=== PATIENT | male | born 1995 | race Caucasian/White ===

== ENCOUNTER 2017-03-16 18:13 | Emergency (ER) | payer BC, MEDICAID ==
[2017-03-16 18:31] VITALS: BP 148/96
--- NOTE | 2017-03-16 18:51 | EDM.PDOC ---
ED HPI GENERAL MEDICAL PROBLEM - General Chief Complaint: General Stated Complaint: NECK PAIN,HIGH WHITE BLOOD COUNT Time Seen by Provider: 03/16/17 18:51 Source of Information: Reports: Patient History Limitations: Reports: No Limitations - History of Present Illness INITIAL COMMENTS - FREE TEXT/NARRATIVE: 21-year-old male who 2 days ago had a strange sensation in his chest substernally, caused him a fairly sudden onset of dizziness and discomfort and diaphoresis. He then developed a headache with some mild to moderate confusion which is very unusual for him. He also had one emesis. His mother observed him for the next 2 days and he seemed to improve the following day but when his headache improved but he became more uncomfortable in his neck she took him to the clinic. Some studies were drawn and he was given a muscle relaxer, but after he left his white count returned 13,000 so he was called and told to go to the emergency room to check for "possible meningitis". Onset: Sudden (2 days ago) Location: Reports: Head, Neck, Chest Severity: Mild Associated Symptoms: Reports: Nausea/Vomiting (Resolved). Denies: Fever/Chills , Shortness of Breath Posterior Neck Pain Score (Numeric/FACES): 5 - Related Data Allergies Allergy/AdvReac Type Severity Reaction Status Date / Time amoxicillin [Amoxicillin] Allergy Intermediate Rash Verified 09/13/13 16:12 Home Meds: Home Meds NK [No Known Home Meds] 09/13/13 [History] Past Medical History HEENT History: Reports: Impaired Vision Musculoskeletal History: Reports: Other (See Below) Other Musculoskeletal History: broken femur Endocrine/Metabolic History: Reports: Hypothyroidism Social & Family History - Tobacco Use Smoking Status *Q: Current Every Day Smoker Years of Tobacco use: 6 Packs/Tins Daily: 0.5 Second Hand Smoke Exposure: Yes - Caffeine Use Caffeine Use: Reports: Coffee, Energy Drinks, Soda - Alcohol Use Days Per Week of Alcohol Use: 4 Number of Drinks Per Day: 7 Total Drinks Per Week: 28 - Recreational Drug Use Recreational Drug Use: No Recreational Drug Type: Reports: Other (see below) ED ROS GENERAL - Review of Systems Review Of Systems: See Below Constitutional: Reports: Malaise. Denies: Fever, Chills, Weakness HEENT: Denies: Vision Change Respiratory: Denies: Shortness of Breath, Cough Cardiovascular: Reports: Chest Pain (He had a strange sensation in his chest 2 days ago but that has resolved) GI/Abdominal: Reports: Vomiting (One episode of vomiting 2 days ago) : Reports: No Symptoms Skin: Reports: Diaphoresis (Initially was diaphoretic that has resolved) Neurological: Reports: Confusion (Intermittent, none at this time) Psychiatric: Reports: No Symptoms ED EXAM, GENERAL - Physical Exam Exam: See Below Exam Limited By: No Limitations General Appearance: Alert, No Apparent Distress Eye Exam: Bilateral Eye: EOMI, Normal Inspection, PERRL Head: Atraumatic Neck: Normal Inspection, Supple, Non-Tender Respiratory/Chest: No Respiratory Distress Cardiovascular: Regular Rate, Rhythm, Tachycardia Extremities: Normal Inspection Neurological: Alert, Oriented, No Motor/Sensory Deficits, Other (Romberg is negative, patient is able to pound his heels on the floor in a standing position without neck or head pain) Course - Vital Signs Last Recorded V/S: Last Vital Signs Temp 98.8 F 03/16/17 18:28 Pulse 120 H 03/16/17 18:28 Resp 18 03/16/17 18:28 BP 148/96 H 03/16/17 18:28 Pulse Ox 100 03/16/17 18:28 - Orders/Labs/Meds Orders: Active Orders 24 hr Category Date Time Status Head wo Cont [CT] Stat Exams 03/16/17 19:08 Taken Meds: Medications Discontinued Medications Generic Name Dose Route Start Last Admin Trade Name Jerodq PRN Reason Stop Dose Admin Ketorolac Tromethamine 60 mg 03/16/17 19:58 03/16/17 20:07 Toradol IM 03/16/17 19:59 60 mg ONETIME ONE Administration - Re-Assessments/Exams Free Text/Narrative Re-Assessment/Exam: 03/16/17 19:27 I don't see any sign or evidence of meningitis but we will CT his head because of the strange onset of confusion and headache. This may be a vascular or migrainous type of event which is being persistent. 03/16/17 19:58 CT was normal. Patient was given 60 mg of Toradol IM and asked to give this a few more days, he can return if worsening. Departure - Departure Time of Disposition: 20:32 Disposition: Home, Self-Care 01 Condition: Good Clinical Impression: Migraine Qualifiers: Migraine type: unspecified Status migrainosus presence: without status migrainosus Intractability: not intractable Qualified Code(s): G43.909 - Migraine, unspecified, not intractable, without status migrainosus - Discharge Information Instructions: Migraine Headache Referrals: PCP,None [Primary Care Provider] - Forms: ED Department Discharge Care Plan Goals: Rest for the next 1-2 days, get plenty of fluids and increase activity and diet as tolerated. Use ibuprofen or naproxen for headache instead of Tylenol, and return if not improving satisfactorily after 2-3 days or sooner if worsening or concerns. - My Orders Last 24 Hours: My Active Orders 03/16/17 19:08 Head wo Cont [CT] Stat - Assessment/Plan Last 24 Hours: My Active Orders 03/16/17 19:08 Head wo Cont [CT] Stat
[2017-03-16] MEDS ORDERED: Ketorolac 60 MG/2 ML SDV IM ONE (19:58)
== END 2017-03-16 20:25 | disposition home or self-care (01) ==
LOC: JP.ED 18:13
DX: G43.909 Migraine, unspecified, not intractable, without status migrainosus (principal); F17.210 Nicotine dependence, cigarettes, uncomplicated; E03.9 Hypothyroidism, unspecified; Z88.1 Allergy status to other antibiotic agents
CPT/HCPCS: 70450; 96372; 99284; J1885

== ENCOUNTER 2017-03-27 23:39 | Emergency (ER) | payer BC, MEDICAID ==
--- NOTE | 2017-03-28 00:29 | EDM.PDOC ---
ED HPI GENERAL MEDICAL PROBLEM - General Chief Complaint: Drug or Alcohol Abuse Stated Complaint: EVAL Time Seen by Provider: 03/27/17 23:40 Source of Information: Reports: Patient, Family, Old Records, RN Notes Reviewed History Limitations: Reports: Physical Impairment - History of Present Illness INITIAL COMMENTS - FREE TEXT/NARRATIVE: 21-year-old gentleman presents emergency department today with an unresponsive event, he is noncommunicative at this time is not moving his right arm or his right leg, would into the room she did shake my hand and acknowledge me with the left arm. His parents state he has been consuming alcohol tonight they found him in his room lying on the floor they brought him in be a private vehicle he has had weakness on his right side. He was in the emergency department approximately one week ago for migraine headache. - Related Data Allergies Allergy/AdvReac Type Severity Reaction Status Date / Time amoxicillin [Amoxicillin] Allergy Intermediate Rash Verified 03/28/17 00:04 Home Meds: Home Meds NK [No Known Home Meds] 09/13/13 [History] Past Medical History HEENT History: Reports: Impaired Vision Musculoskeletal History: Reports: Fracture, Other (See Below) Other Musculoskeletal History: broken femur Neurological History: Reports: Migraines Endocrine/Metabolic History: Reports: Hypothyroidism Social & Family History - Tobacco Use Smoking Status *Q: Current Every Day Smoker Years of Tobacco use: 7 Packs/Tins Daily: 1 Second Hand Smoke Exposure: Yes - Caffeine Use Caffeine Use: Reports: Energy Drinks, Soda - Alcohol Use Days Per Week of Alcohol Use: 4 Number of Drinks Per Day: 7 Total Drinks Per Week: 28 - Recreational Drug Use Recreational Drug Use: No Recreational Drug Type: Reports: Other (see below) ED ROS GENERAL - Review of Systems Review Of Systems: Unable To Obtain - Physical Exam Exam: See Below Text/Narrative:: General: Male noncommunicative follows some commands initially acknowledged me and shook my hand with his left hand does not move right arm or right leg eyes do open spontaneously open on command but did not open mouth on command, alert HEENT: head is atraumatic normocephalic, eyes pupils equal round reactive to light, sclera clear no conjunctivitis appreciated. Extraocular eye movements appear to be intact Ears blocked by cerumen bilaterally canals are clear. Nose no septal deviation, nares are clear, no blood present. Mouth mucosa is moist and pink no erythema or exudate noted in soft palate, tongue is midline uvula is midline, dentition is intact. Neck: Supple no thyromegaly no tracheal deviation. Nodes: Cervical nodes subclavicular nodes nontender no palpable lymphadenopathy noted. Lungs: clear to auscultation bilaterally with symmetrical respirations, no adventitious noise appreciated. CV: Regular rate and rhythm S1 and S2 appreciated no murmurs rubs or gallops noted. Abdomen: Soft, nontender, no palpable masses or organomegaly appreciated, no distention no guarding bowel sounds are present, . Neuro: Cranial nerves II through XII grossly intact, power is 5 out 5 in upper and lower extremities, patellar reflex, biceps reflex +2 no dysdiadochokinesis he does have a withdrawal reflex on the right lower extremity , however when I drop his right arm over his face and he let the arm fallen his face, the right arm is rigid Skin: Warm and dry, intact Extremities: No lower extremity edema appreciated, pedal pulse is +2. Course - Vital Signs Last Recorded V/S: Last Vital Signs Temp 97.0 F 03/28/17 00:04 Pulse 74 03/28/17 00:04 Resp 18 03/28/17 00:04 BP 111/76 03/28/17 00:04 Pulse Ox 95 03/28/17 00:04 - Orders/Labs/Meds Orders: Active Orders 24 hr Category Date Time Status EKG Documentation Completion [RC] ASDIRECTED Care 03/28/17 00:21 Active Head wo Cont [CT] Urgent Exams 03/28/17 00:19 Taken DRUG SCREEN, URINE [URCHEM] Stat Lab 03/28/17 00:22 Uncollected TROPONIN I [CHEM] Stat Lab 03/28/17 01:43 Ordered UA W/MICROSCOPIC [URIN] Urgent Lab 03/28/17 00:19 Uncollected Fosphenytoin [Cerebyx] 1,000 mg.pe Med 03/28/17 01:45 Ordered Sodium Chloride 0.9% [Normal Saline] 50 ml IV NOW EKG 12 Lead [EK] Urgent Ther 03/28/17 00:19 Ordered Medication Orders Fosphenytoin Sodium 1,000 mg. (pe/ Sodium Chloride) 70 mls @ 150 mls/hr IV NOW ONE Stop: 03/28/17 02:12 Labs: Laboratory Tests 03/28/17 03/28/17 03/28/17 Range/Units 00:42 00:42 00:42 WBC 14.5 H (4.5-11.0) K/uL RBC 4.97 (4.30-5.90) M/uL Hgb 16.0 H (12.0-15.0) g/dL Hct 45.9 (40.0-54.0) % MCV 92 (80-98) fL MCH 32 H (27-31) pg MCHC 35 (32-36) % Plt Count 362 (150-400) K/uL Neut % (Auto) 84 H (36-66) % Lymph % (Auto) 5 L (24-44) % Pike % (Auto) 10 H (2-6) % Eos % (Auto) 1 L (2-4) % Baso % (Auto) 1 (0-1) % PT (9.5-12.0) sec INR (0.80-1.20) APTT (27.0-36.0) sec D-Dimer, Quantitative (0.0-400.0) ng/mL Sodium 138 L (140-148) mmol/L Potassium 3.6 (3.6-5.2) mmol/L Chloride 100 (100-108) mmol/L Carbon Dioxide 26 (21-32) mmol/L Anion Gap 15.6 H (5.0-14.0) mmol/L BUN 8 (7-18) mg/dL Creatinine 1.3 (0.8-1.3) mg/dL Est Cr Clr Drug Dosing TNP Estimated GFR (MDRD) > 60 (>60) Glucose 100 (74-106) mg/dL Lactic Acid (0.4-2.0) mmol/L Calcium 9.0 (8.5-10.1) mg/dL Phosphorus 3.1 (2.5-4.9) mg/dL Magnesium 1.8 (1.8-2.4) mg/dL Total Bilirubin 0.5 (0.2-1.0) mg/dL AST 18 (15-37) U/L ALT 19 (12-78) U/L Alkaline Phosphatase 124 H (46-116) U/L Ammonia 18 (11-32) mmol/L Total Protein 7.8 (6.4-8.2) g/dL Albumin 3.7 (3.4-5.0) g/dL Globulin 4.1 H (2.3-3.5) g/dL Albumin/Globulin Ratio 0.9 L (1.2-2.2) TSH, Ultra Sensitive (0.358-3.740) uIU/mL Salicylates (2.0-20.0) mg/dL Acetaminophen 0.0 L (10.0-30.0) ug/mL Ethyl Alcohol mg/dL 03/28/17 03/28/17 03/28/17 Range/Units 00:42 00:42 00:42 WBC (4.5-11.0) K/uL RBC (4.30-5.90) M/uL Hgb (12.0-15.0) g/dL Hct (40.0-54.0) % MCV (80-98) fL MCH (27-31) pg MCHC (32-36) % Plt Count (150-400) K/uL Neut % (Auto) (36-66) % Lymph % (Auto) (24-44) % Pike % (Auto) (2-6) % Eos % (Auto) (2-4) % Baso % (Auto) (0-1) % PT (9.5-12.0) sec INR (0.80-1.20) APTT (27.0-36.0) sec D-Dimer, Quantitative (0.0-400.0) ng/mL Sodium (140-148) mmol/L Potassium (3.6-5.2) mmol/L Chloride (100-108) mmol/L Carbon Dioxide (21-32) mmol/L Anion Gap (5.0-14.0) mmol/L BUN (7-18) mg/dL Creatinine (0.8-1.3) mg/dL Est Cr Clr Drug Dosing Estimated GFR (MDRD) (>60) Glucose (74-106) mg/dL Lactic Acid 3.6 H (0.4-2.0) mmol/L Calcium (8.5-10.1) mg/dL Phosphorus (2.5-4.9) mg/dL Magnesium (1.8-2.4) mg/dL Total Bilirubin (0.2-1.0) mg/dL AST (15-37) U/L ALT (12-78) U/L Alkaline Phosphatase (46-116) U/L Ammonia (11-32) mmol/L Total Protein (6.4-8.2) g/dL Albumin (3.4-5.0) g/dL Globulin (2.3-3.5) g/dL Albumin/Globulin Ratio (1.2-2.2) TSH, Ultra Sensitive (0.358-3.740) uIU/mL Salicylates 2.8 (2.0-20.0) mg/dL Acetaminophen (10.0-30.0) ug/mL Ethyl Alcohol 18 mg/dL 03/28/17 03/28/17 03/28/17 Range/Units 00:42 01:25 01:27 WBC (4.5-11.0) K/uL RBC (4.30-5.90) M/uL Hgb (12.0-15.0) g/dL Hct (40.0-54.0) % MCV (80-98) fL MCH (27-31) pg MCHC (32-36) % Plt Count (150-400) K/uL Neut % (Auto) (36-66) % Lymph % (Auto) (24-44) % Pike % (Auto) (2-6) % Eos % (Auto) (2-4) % Baso % (Auto) (0-1) % PT (9.5-12.0) sec INR (0.80-1.20) APTT 27.8 (27.0-36.0) sec D-Dimer, Quantitative 708 H (0.0-400.0) ng/mL Sodium (140-148) mmol/L Potassium (3.6-5.2) mmol/L Chloride (100-108) mmol/L Carbon Dioxide (21-32) mmol/L Anion Gap (5.0-14.0) mmol/L BUN (7-18) mg/dL Creatinine (0.8-1.3) mg/dL Est Cr Clr Drug Dosing Estimated GFR (MDRD) (>60) Glucose (74-106) mg/dL Lactic Acid (0.4-2.0) mmol/L Calcium (8.5-10.1) mg/dL Phosphorus (2.5-4.9) mg/dL Magnesium (1.8-2.4) mg/dL Total Bilirubin (0.2-1.0) mg/dL AST (15-37) U/L ALT (12-78) U/L Alkaline Phosphatase (46-116) U/L Ammonia (11-32) mmol/L Total Protein (6.4-8.2) g/dL Albumin (3.4-5.0) g/dL Globulin (2.3-3.5) g/dL Albumin/Globulin Ratio (1.2-2.2) TSH, Ultra Sensitive 1.688 (0.358-3.740) uIU/mL Salicylates (2.0-20.0) mg/dL Acetaminophen (10.0-30.0) ug/mL Ethyl Alcohol mg/dL 03/28/17 Range/Units 01:27 WBC (4.5-11.0) K/uL RBC (4.30-5.90) M/uL Hgb (12.0-15.0) g/dL Hct (40.0-54.0) % MCV (80-98) fL MCH (27-31) pg MCHC (32-36) % Plt Count (150-400) K/uL Neut % (Auto) (36-66) % Lymph % (Auto) (24-44) % Pike % (Auto) (2-6) % Eos % (Auto) (2-4) % Baso % (Auto) (0-1) % PT 10.3 (9.5-12.0) sec INR 0.96 (0.80-1.20) APTT (27.0-36.0) sec D-Dimer, Quantitative (0.0-400.0) ng/mL Sodium (140-148) mmol/L Potassium (3.6-5.2) mmol/L Chloride (100-108) mmol/L Carbon Dioxide (21-32) mmol/L Anion Gap (5.0-14.0) mmol/L BUN (7-18) mg/dL Creatinine (0.8-1.3) mg/dL Est Cr Clr Drug Dosing Estimated GFR (MDRD) (>60) Glucose (74-106) mg/dL Lactic Acid (0.4-2.0) mmol/L Calcium (8.5-10.1) mg/dL Phosphorus (2.5-4.9) mg/dL Magnesium (1.8-2.4) mg/dL Total Bilirubin (0.2-1.0) mg/dL AST (15-37) U/L ALT (12-78) U/L Alkaline Phosphatase (46-116) U/L Ammonia (11-32) mmol/L Total Protein (6.4-8.2) g/dL Albumin (3.4-5.0) g/dL Globulin (2.3-3.5) g/dL Albumin/Globulin Ratio (1.2-2.2) TSH, Ultra Sensitive (0.358-3.740) uIU/mL Salicylates (2.0-20.0) mg/dL Acetaminophen (10.0-30.0) ug/mL Ethyl Alcohol mg/dL Meds: Medications Generic Name Dose Route Start Last Admin Trade Name Freq PRN Reason Stop Dose Admin Fosphenytoin Sodium 1,000 mg. 70 mls @ 150 mls/hr 03/28/17 01:45 pe/ Sodium Chloride IV 03/28/17 02:12 NOW ONE Departure - Departure Time of Disposition: 02:02 Disposition: DC/Tfer to Acute Hospital 02 Condition: Poor Clinical Impression: Cerebrovascular accident Qualifiers: CVA mechanism: thrombosis Precerebral and cerebral artery: middle cerebral artery Laterality of affected vessel: left Qualified Code(s): I63.312 - Cerebral infarction due to thrombosis of left middle cerebral artery - Discharge Information Forms: ED Department Discharge - My Orders Last 24 Hours: My Active Orders 03/28/17 00:19 Head wo Cont [CT] Urgent UA W/MICROSCOPIC [URIN] Urgent EKG 12 Lead [EK] Urgent 03/28/17 00:21 EKG Documentation Completion [RC] ASDIRECTED 03/28/17 00:22 DRUG SCREEN, URINE [URCHEM] Stat 03/28/17 01:43 TROPONIN I [CHEM] Stat 03/28/17 01:45 Fosphenytoin [Cerebyx] 1,000 mg.pe Sodium Chloride 0.9% [Normal Saline] 50 ml IV NOW - Assessment/Plan Last 24 Hours: My Active Orders 03/28/17 00:19 Head wo Cont [CT] Urgent UA W/MICROSCOPIC [URIN] Urgent EKG 12 Lead [EK] Urgent 03/28/17 00:21 EKG Documentation Completion [RC] ASDIRECTED 03/28/17 00:22 DRUG SCREEN, URINE [URCHEM] Stat 03/28/17 01:43 TROPONIN I [CHEM] Stat 03/28/17 01:45 Fosphenytoin [Cerebyx] 1,000 mg.pe Sodium Chloride 0.9% [Normal Saline] 50 ml IV NOW Plan: Assessment Acuity = acute Site and laterality = probable CVA left MCA Etiology = unclear etiology Manifestations = right sided weakness Location of injury = Home Lab values = WBC elevated at 14.5 consistent leukocytosis d-dimer mildly elevated at 708 sodium low at 138 consistent hyponatremia lactic acid elevated at 3.6 consistent lactic acidosis TSH normal at 1.68 alcohol elevated at 18, EKG demonstrates multiple ST elevations consistent with acute pericarditis CT scan shows Plan Called discussed case with neurologist on-call and Dr. Christian from the emergency department [facility], both felt he was too far out for TPA as last known well time was 4:30 yesterday afternoon, he was loaded with thousand milligrams fosphenytoin IV he will be transported via [email or web address] to [place] for further evaluation to the emergency department This note was dictated using [employer] voice recognition software please call with any questions.
[2017-03-28] MEDS ORDERED: Fosphenytoin 1,000 MG.PE in Sodium Chloride 0.9% 50 ML IV ONE (01:45)
[2017-03-28 02:17] VITALS: BP 124/87
== END 2017-03-28 02:52 ==
LOC: JP.ED 23:39
DX: I63.312 Cerebral infarction due to thrombosis of left middle cerebral artery (principal); G43.909 Migraine, unspecified, not intractable, without status migrainosus; E03.9 Hypothyroidism, unspecified; F17.210 Nicotine dependence, cigarettes, uncomplicated; H54.7 Unspecified visual loss; Z88.1 Allergy status to other antibiotic agents
CPT/HCPCS: 36415; 70450; 80053; 80305; 81001; 82140; 83605; 83735; 84100; 84443; 84484; 85025; 85379; 85610; 85730; 93005; 96365; 99285; G0480; J7050; Q2009

== ENCOUNTER 2017-05-01 19:18 | Emergency (ER) | payer BC, MEDICAID ==
[2017-05-01 19:39] VITALS: BP 124/71
--- NOTE | 2017-05-01 20:13 | EDM.PDOC ---
ED HPI GENERAL MEDICAL PROBLEM - General Chief Complaint: Lower Extremity Injury/Pain Stated Complaint: LT LEG PAIN/HAS HAD SURG & STROKE Time Seen by Provider: 05/01/17 20:00 Source of Information: Reports: Patient History Limitations: Reports: No Limitations - History of Present Illness INITIAL COMMENTS - FREE TEXT/NARRATIVE: Thai is a 21-year-old male with an extensive medical history including a recent MCA infarct, aortic repair and embolectomy with subsequent cardiac tamponade [facility]. patient has been doing rehabilitation in town here which has been going well, he informed his mom this evening that he had left thigh pain which patient reports has been ongoing for the last 5 days, patient reports that leg is painful when he lays on that side, he denies any injury, fever, chills. Patient has been riding a stationary bike for his rehabilitation. Mom is uncertain if his legs were ultrasounded for blood clots during his hospitalization. Patient denies any chest pain, shortness of breath, headache, dizziness or any other acute symptoms this evening. 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 AORTIC REPLACEMENT MODIFIED AORTIC ARCH AND AORTIC VALVE RESUSPENSION 03/28/17 Respiratory History: Reports: None Gastrointestinal History: Reports: None Genitourinary History: Reports: None Musculoskeletal History: Reports: Fracture, Other (See Below) Other Musculoskeletal History: broken femur. PAIN L UPPER LEG OUTER Neurological History: Reports: CVA, Migraines Psychiatric History: Reports: None Endocrine/Metabolic History: Reports: Hypothyroidism Hematologic History: Reports: None Immunologic History: Reports: None Oncologic (Cancer) History: Reports: None Dermatologic History: Reports: None - Past Surgical History Head Surgeries/Procedures: Reports: None Cardiovascular Surgical History: Reports: AAA Repair Other Neurological Surgeries/Procedures: l CVA WITH RECANALIZTION AND EMBOLECTOMY Social & Family History - Tobacco Use Smoking Status *Q: Current Every Day Smoker Years of Tobacco use: 5 Packs/Tins Daily: 0.5 Used Tobacco, but Quit: No Second Hand Smoke Exposure: Yes - Caffeine Use Caffeine Use: Reports: Soda - Alcohol Use Days Per Week of Alcohol Use: 4 Number of Drinks Per Day: 7 Total Drinks Per Week: 28 - Recreational Drug Use Recreational Drug Use: No Recreational Drug Type: Reports: Other (see below) Review of Systems - Review of Systems Review Of Systems: ROS reveals no pertinent complaints other than HPI. ED EXAM, GENERAL - Physical Exam Exam: See Below Exam Limited By: No Limitations General Appearance: Alert, WD/WN, No Apparent Distress Throat/Mouth: Normal Inspection, Normal Oropharynx Head: Atraumatic Neck: Normal Inspection, Supple, Non-Tender Respiratory/Chest: No Respiratory Distress, Lungs Clear, Normal Breath Sounds Cardiovascular: Normal Peripheral Pulses, Regular Rate, Rhythm, No Murmur, Tachycardia Peripheral Pulses: 2+: Dorsalis Pedis (L), Dorsalis Pedis (R) GI/Abdominal: Normal Bowel Sounds, Soft, Non-Tender Back Exam: Normal Inspection Extremities: Normal Inspection, Normal Range of Motion, Non-Tender, Normal Capillary Refill Neurological: Alert, Oriented Psychiatric: Normal Affect, Normal Mood Skin Exam: Warm, Dry, Other (Healing midline chest incision, chest tube incision , left groin incision, and left neck incision) Course - Vital Signs Last Recorded V/S: Last Vital Signs Temp 36.9 C 05/01/17 19:37 Pulse 115 H 05/01/17 19:37 Resp 16 05/01/17 19:37 BP 124/71 05/01/17 19:37 Pulse Ox 97 05/01/17 19:37 Thai is a 21-year-old male with significant medical history including a recent MCA infarction, embolectomy, open heart surgery with cardiac tamponade, who is currently undergoing cardiac rehabilitation and doing quite well who presents to the emergency room today with complaints of left thigh pain. On exam, patient 's pain is consistent with a musculoskeletal component, however, given patient' s significant medical history, I did obtain an ultrasound of his lower extremity to rule out a DVT. Fortunately ultrasound is negative and blood work today including a CBC and CMP is unremarkable. I discussed findings of ultrasound and test results with patient and his mom, I feel he is stable to be discharged home, I encouraged Tylenol, 650 mg every 4 hours for pain as needed as well as trying to alternate ice and heat to area for pain relief. Patient was encouraged to follow up with primary care in the next week if his symptoms have not improved, reasons to return to the emergency department were discussed in detail. Patient is mom are agreeable to plan of care patient was discharged in stable condition. - Orders/Labs/Meds Orders: Active Orders 24 hr Category Date Time Status VL Duplex Lwr Ext Veins Ltd Lt [US] Stat Exams 05/01/17 20:09 Taken Labs: Laboratory Tests 05/01/17 05/01/17 Range/Units 20:19 20:19 WBC 10.9 (4.5-11.0) K/uL RBC 4.61 (4.30-5.90) M/uL Hgb 14.1 (12.0-15.0) g/dL Hct 41.6 (40.0-54.0) % MCV 90 (80-98) fL MCH 31 (27-31) pg MCHC 34 (32-36) % Plt Count 271 (150-400) K/uL Neut % (Auto) 59 (36-66) % Lymph % (Auto) 20 L (24-44) % Miner % (Auto) 11 H (2-6) % Eos % (Auto) 8 H (2-4) % Baso % (Auto) 3 H (0-1) % Sodium 143 (140-148) mmol/L Potassium 4.1 (3.6-5.2) mmol/L Chloride 107 (100-108) mmol/L Carbon Dioxide 29 (21-32) mmol/L Anion Gap 7.2 (5.0-14.0) mmol/L BUN 9 (7-18) mg/dL Creatinine 1.2 (0.8-1.3) mg/dL Est Cr Clr Drug Dosing 83.28 mL/min Estimated GFR (MDRD) > 60 (>60) Glucose 94 (74-106) mg/dL Calcium 8.6 (8.5-10.1) mg/dL Total Bilirubin 0.4 (0.2-1.0) mg/dL AST 22 (15-37) U/L ALT 25 (12-78) U/L Alkaline Phosphatase 112 (46-116) U/L Total Protein 7.5 (6.4-8.2) g/dL Albumin 3.7 (3.4-5.0) g/dL Globulin 3.8 H (2.3-3.5) g/dL Albumin/Globulin Ratio 1.0 L (1.2-2.2) Departure - Departure Time of Disposition: 21:30 Disposition: Home, Self-Care 01 Condition: Good Clinical Impression: Thigh pain, musculoskeletal Qualifiers: Laterality: left Qualified Code(s): M79.652 - Pain in left thigh - Discharge Information Referrals: Lee Molina PA-C [Primary Care Provider] - Forms: ED Department Discharge Additional Instructions: Thai, You can take Tylenol 650 mg every 4 hours for pain. You can also try to alternate ice/heat to area for pain relief. If pain continues, follow up with your primary doctor in one week. If any worsening symptoms or complications arise, please return to the ED. You are doing great, keep up the awesome work with your rehab!! - My Orders Last 24 Hours: My Active Orders 05/01/17 20:09 VL Duplex Lwr Ext Veins Ltd Lt [US] Stat - Assessment/Plan Last 24 Hours: My Active Orders 05/01/17 20:09 VL Duplex Lwr Ext Veins Ltd Lt [US] Stat
--- NOTE | 2017-05-04 08:18 | US ---
VL Duplex Lwr Ext Veins Ltd Lt INDICATION: pain in left thigh, r/o dvt TECHNIQUE: The deep venous system of the left leg imaged, including the common femoral, deep femoral , superficial femoral, vertebral, and where visualized, calf veins. Imaging included duplex, compr ession, and augmentation. COMPARISON: None FINDINGS: There is no evidence of deep venous thrombosis. Other incidental findings: None. IMPRESSION: No evidence of deep venous thrombosis.
== END 2017-05-01 21:07 | disposition home or self-care (01) ==
LOC: JP.ED 19:18
DX: M79.652 Pain in left thigh (principal); E03.9 Hypothyroidism, unspecified; F17.210 Nicotine dependence, cigarettes, uncomplicated; Z88.1 Allergy status to other antibiotic agents; Z86.718 Personal history of other venous thrombosis and embolism; Z98.890 Other specified postprocedural states; Z79.82 Long term (current) use of aspirin; Z86.73 Personal history of transient ischemic attack (TIA), and cerebral infarction without residual deficits
CPT/HCPCS: 36415; 80053; 85025; 93971-26-LT; 93971-LT; 99284-25

== ENCOUNTER 2017-11-24 19:13 | Emergency (ER) | payer BC, MEDICAID ==
[2017-11-24] MEDS ORDERED: Acetaminophen 500 MG Tab PO ONE (20:00)
[2017-11-24 20:13] VITALS: BP 144/66
--- NOTE | 2017-11-24 20:55 | EDM.PDOC ---
ED HPI GENERAL MEDICAL PROBLEM - General Chief Complaint: Respiratory Problem Stated Complaint: DIFFICULTY BREATHING Time Seen by Provider: 11/24/17 19:36 Source of Information: Reports: Patient, Old Records, RN Notes Reviewed History Limitations: Reports: No Limitations - History of Present Illness INITIAL COMMENTS - FREE TEXT/NARRATIVE: Company by his father Chief complaint Difficulty breathing History of present illness 22-year-old male with onset of sore throat and a feeling of difficulty breathing 2 days ago. Chest aches, cough some mucus which is white in color. Fever yesterday but not today. Some achiness including his back his chest extremities. Also headache and nasal congestion. Nausea, an episode of vomiting yesterday No diarrhea Lives with his mom and father, mom is been sick for 2 days with cough fever generalized achiness and has been largely bed confined today. No history of lung disease or asthma Did have some acetaminophen much earlier. 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 shortly after that No one in the family had influenza vaccine this year THROAT;CHEST Pain Score (Numeric/FACES): 8 - Related Data Allergies Allergy/AdvReac Type Severity Reaction Status Date / Time amoxicillin [Amoxicillin] Allergy Intermediate Rash Verified 11/24/17 19:19 Home Meds: Home Meds Acetaminophen [Tylenol] 500 mg PO Q6H PRN 05/01/17 [History] Aspirin 81 mg PO DAILY 05/01/17 [History] Metoprolol Tartrate [Metoprolol Tartrate] 25 mg PO BID 11/24/17 [History] Past Medical History HEENT History: Reports: Impaired Vision Cardiovascular History: Reports: Blood Clots/VTE/DVT, Other (See Below) Other Cardiovascular History: 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 AORTIC REPLACEMENT MODIFIED AORTIC ARCH AND AORTIC VALVE RESUSPENSION 03/28/17 Respiratory History: Reports: None Gastrointestinal History: Reports: None Genitourinary History: Reports: None Musculoskeletal History: Reports: Fracture, Other (See Below) Other Musculoskeletal History: broken femur. PAIN L UPPER LEG OUTER Neurological History: Reports: CVA, Migraines Psychiatric History: Reports: None Endocrine/Metabolic History: Reports: Hypothyroidism Hematologic History: Reports: None Immunologic History: Reports: None Oncologic (Cancer) History: Reports: None Dermatologic History: Reports: None - Past Surgical History Cardiovascular Surgical History: Reports: AAA Repair Other Neurological Surgeries/Procedures: l CVA WITH RECANALIZTION AND EMBOLECTOMY Social & Family History - Tobacco Use Smoking Status *Q: Current Every Day Smoker Years of Tobacco use: 5 Packs/Tins Daily: 0.5 Used Tobacco, but Quit: No Second Hand Smoke Exposure: Yes - Caffeine Use Caffeine Use: Reports: Soda - Alcohol Use Days Per Week of Alcohol Use: 7 Number of Drinks Per Day: 4 Total Drinks Per Week: 28 - Recreational Drug Use Recreational Drug Use: No Recreational Drug Type: Reports: Other (see below) ED ROS GENERAL - Review of Systems Review Of Systems: See Below Constitutional: Reports: Fever, Malaise, Fatigue. Denies: Diaphoresis HEENT: Reports: Rhinitis, Throat Pain. Denies: Ear Pain, Vision Change Respiratory: Reports: Shortness of Breath, Cough Cardiovascular: Reports: Chest Pain. Denies: Edema, Lightheadedness, Palpitations GI/Abdominal: Reports: Decreased Appetite, Nausea, Vomiting. Denies: Abdominal Pain, Diarrhea : Reports: No Symptoms Musculoskeletal: Reports: Muscle Pain. Denies: Joint Swelling Skin: Reports: No Symptoms Neurological: Reports: Headache, Pre-Existing Deficit (Aphasia), Weakness. Denies: Confusion, Gait Disturbance Psychiatric: Reports: No Symptoms Hematologic/Lymphatic: Reports: No Symptoms Immunologic: Reports: No Symptoms ED EXAM, GENERAL - Physical Exam Exam: See Below Exam Limited By: No Limitations General Appearance: Alert, Mild Distress, Other (Fever with tachycardia, states his heart rate is normally fasting 120, mild elevation systolic blood pressure, no difficulty speaking or breathing on my evaluation) Ears: Normal External Exam, Normal Canal, Hearing Grossly Normal, Normal TMs Nose: Nasal Swelling, Clear Rhinorrhea Throat/Mouth: Normal Voice, Other (Mild oral pharyngeal redness, no exudate) Head: Atraumatic Neck: Normal Inspection, Supple. No: Lymphadenopathy (R) Respiratory/Chest: No Respiratory Distress, Lungs Clear, Normal Breath Sounds, No Accessory Muscle Use Cardiovascular: Regular Rate, Rhythm, Tachycardia GI/Abdominal: Normal Bowel Sounds, Soft, Non-Tender Back Exam: Normal Inspection Extremities: Normal Inspection Neurological: Oriented, Other (Aphasia from previous) Skin Exam: Dry, Normal Color, No Rash Course - Vital Signs Last Recorded V/S: Last Vital Signs Temp 38.7 C H 11/24/17 20:31 Pulse 125 H 11/24/17 19:17 Resp 15 11/24/17 20:11 BP 144/66 H 11/24/17 20:11 Pulse Ox 100 11/24/17 20:11 - Orders/Labs/Meds Orders: Active Orders 24 hr Category Date Time Status EKG Documentation Completion [RC] ASDIRECTED Care 11/24/17 21:14 Active Chest 2V [CR] Stat Exams 11/24/17 19:49 Taken CULTURE STREP A CONFIRMATION [RM] Stat Lab 11/24/17 19:51 Results STREP SCRN A RAPID W CULT CONF [RM] Stat Lab 11/24/17 19:51 Results EKG 12 Lead [EK] Routine Ther 11/24/17 21:14 Ordered Meds: Medications Discontinued Medications Generic Name Dose Route Start Last Admin Trade Name Dale PRN Reason Stop Dose Admin Acetaminophen 1,000 mg 11/24/17 20:00 11/24/17 20:06 Tylenol Extra Strength PO 11/24/17 20:01 1,000 mg ONETIME ONE Administration - Re-Assessments/Exams Free Text/Narrative Re-Assessment/Exam: 11/24/17 20:52 22-year-old male with about 3 days of respiratory symptoms including fever cough headache muscle aches. Also sore throat Mom recently ill with very similar illness Febrile with nasal congestion on admission Strep screen negative Acetaminophen 1000 mg by mouth for headache and fever Chest x-ray negative by my interpretation Influenza-like illness symptoms Symptomatically treatment Recheck if worsening, see discharge instructions Departure - Departure Time of Disposition: 20:53 Disposition: Home, Self-Care 01 Condition: Good Clinical Impression: Influenza-like illness - Discharge Information Instructions: Influenza, Adult Referrals: PCP,None [Primary Care Provider] - Forms: ED Department Discharge Additional Instructions: Examination tonight: Throat swab negative for strep throat Chest x-ray negative for pneumonia but will be read again tomorrow and you will be contacted if there are any changes in the report You indicate that you're having breathing troubles but evaluation shows that your breathing is normal with good oxygen levels, but you have significant nasal congestion Nonprescription nasal sprays such as Dristan, Afrin, or Flonase may help with the congestion Continue treatment of your symptoms with acetaminophen and ibuprofen throat lozenges and drink plenty of fluids Get rechecked if your fever is not improving in 4-5 days or you become more short of breath - My Orders Last 24 Hours: My Active Orders 11/24/17 19:49 Chest 2V [CR] Stat 11/24/17 19:51 CULTURE STREP A CONFIRMATION [RM] Stat STREP SCRN A RAPID W CULT CONF [RM] Stat 11/24/17 21:14 EKG Documentation Completion [RC] ASDIRECTED EKG 12 Lead [EK] Routine - Assessment/Plan Last 24 Hours: My Active Orders 11/24/17 19:49 Chest 2V [CR] Stat 11/24/17 19:51 CULTURE STREP A CONFIRMATION [RM] Stat STREP SCRN A RAPID W CULT CONF [RM] Stat 11/24/17 21:14 EKG Documentation Completion [RC] ASDIRECTED EKG 12 Lead [EK] Routine
--- NOTE | 2017-11-25 08:44 | CR ---
CHEST: 2 view CLINICAL HISTORY:Cough, fever, dyspnea COMPARISON:None FINDINGS: Patient has had previous sternotomy. Heart size and pulmonary vascular is normal. No infil trate effusion or pneumothorax is seen. Impression: Previous sternotomy No acute cardiopulmonary process.
== END 2017-11-24 21:17 | disposition home or self-care (01) ==
LOC: JP.ED 19:13
DX: J11.1 Influenza due to unidentified influenza virus with other respiratory manifestations (principal); E03.9 Hypothyroidism, unspecified; F17.210 Nicotine dependence, cigarettes, uncomplicated; Z88.1 Allergy status to other antibiotic agents; Z79.82 Long term (current) use of aspirin; Z79.899 Other long term (current) drug therapy
CPT/HCPCS: 71046; 87081; 87430; 93005; 99285; A9270

== ENCOUNTER 2018-10-11 21:38 | Emergency (ER) | payer BC, MEDICAID ==
[2018-10-11 22:11] VITALS: BP 127/58
[2018-10-11] MEDS ORDERED: Acetaminophen 325 MG Tab PO ONE (23:26)
--- NOTE | 2018-10-11 23:28 | EDM.PDOCBH ---
ED HPI GENERAL MEDICAL PROBLEM - General Chief Complaint: Drug or Alcohol Abuse Stated Complaint: ILLNESS Time Seen by Provider: 10/11/18 23:07 Source of Information: Reports: Patient, Family, Old Records, RN Notes Reviewed History Limitations: Reports: No Limitations - History of Present Illness INITIAL COMMENTS - FREE TEXT/NARRATIVE: 22-year-old gentleman presents emergency department today with concerns about anxiety, he has a very extensive past medical history including CVA aortic dissection alcohol abuse and dependence. He has been consuming alcohol he is trying to quit, is afraid that when he withdraws from alcohol he may develop a seizure which has happened in the past he does have follow-up appointment with neurology on Thursday. No particular complaints at this time other than ongoing headache which is what the neurology appointment is for Headache Pain Score (Numeric/FACES): 5 - Related Data Allergies Allergy/AdvReac Type Severity Reaction Status Date / Time amoxicillin [Amoxicillin] Allergy Intermediate Rash Verified 10/11/18 22:07 Home Meds: Home Meds Acetaminophen [Tylenol] 500 mg PO Q6H PRN 05/01/17 [History] Aspirin 81 mg PO DAILY 05/01/17 [History] Metoprolol Tartrate 50 mg PO BID 11/24/17 [History] Albuterol [Ventolin HFA] 2 puff INH Q4H PRN 08/09/18 [History] Fluticasone Propionate [Flonase] 16 gm NS Q4HR PRN 08/09/18 [History] Past Medical History HEENT History: Reports: Impaired Vision Cardiovascular History: Reports: Aneurysm, Blood Clots/VTE/DVT, Other (See Below ) Other Cardiovascular History: 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 AORTIC REPLACEMENT MODIFIED AORTIC ARCH AND AORTIC VALVE RESUSPENSION 03/28/17 Gastrointestinal History: Reports: Pancreatitis Musculoskeletal History: Reports: Fracture, Other (See Below) Other Musculoskeletal History: broken femur. PAIN L UPPER LEG OUTER Neurological History: Reports: CVA, Headaches, Chronic Endocrine/Metabolic History: Reports: Hypothyroidism - Infectious Disease History Infectious Disease History: Reports: Chicken Pox - Past Surgical History Cardiovascular Surgical History: Reports: AAA Repair Respiratory Surgical History: Reports: None Other Neurological Surgeries/Procedures: l CVA WITH RECANALIZTION AND EMBOLECTOMY Social & Family History - Family History Family Medical History: Unobtainable Other Endocrine/Metabolic Family History: Marfan syndrome - Tobacco Use Smoking Status *Q: Current Some Day Smoker Years of Tobacco use: 6 Packs/Tins Daily: 0.5 Used Tobacco, but Quit: No Second Hand Smoke Exposure: No - Caffeine Use Caffeine Use: Reports: None - Alcohol Use Days Per Week of Alcohol Use: 7 Number of Drinks Per Day: 6 Total Drinks Per Week: 42 - Recreational Drug Use Recreational Drug Use: No ED ROS GENERAL - Review of Systems Review Of Systems: See Below Constitutional: Reports: No Symptoms HEENT: Reports: No Symptoms Respiratory: Reports: No Symptoms Cardiovascular: Reports: No Symptoms GI/Abdominal: Reports: No Symptoms : Reports: No Symptoms Musculoskeletal: Reports: No Symptoms Skin: Reports: No Symptoms Neurological: Reports: Headache Psychiatric: Reports: Anxiety ED EXAM, BEHAVIORAL HEALTH - Physical Exam Exam: See Below Exam Limited By: No Limitations General Appearance: Alert, WD/WN, No Apparent Distress Respiratory/Chest: No Respiratory Distress Psychiatric: Alert, Depressed Mood, Poor Eye Contact. No: Suicidal Thoughts COURSE, BEHAVIORAL HEALTH COMP - Course Vital Signs: Last Vital Signs Temp 96.7 F 10/11/18 22:29 Pulse 94 10/11/18 22:29 Resp 16 10/11/18 22:29 BP 127/58 L 10/11/18 22:29 Pulse Ox 100 10/11/18 22:29 Departure - Departure Time of Disposition: 23:28 Disposition: Home, Self-Care 01 Condition: Fair Clinical Impression: Anxiety - Discharge Information Referrals: Yen Son PA-C [Primary Care Provider] - Additional Instructions: Try Tylenol as needed for headache, use Ativan as needed for anxiety symptoms, please keep your follow-up appointment with neurology on Thursday - Assessment/Plan Plan: Assessment Acuity = acute Site and laterality = anxiety complicated with alcohol abuse and dependence Etiology = EtOH Manifestations = none Location of injury = Home Lab values = none Plan He did receive Tylenol 1 for his headache, prescription written for Ativan 1 mg by mouth 3 times a day when necessary total #10 tablets keep his appointment with neurology in 2 days This note was dictated using [employer] voice recognition software please call with any questions on syntax or grammar.
== END 2018-10-11 23:40 | disposition home or self-care (01) ==
LOC: JP.ED 21:38
DX: F41.9 Anxiety disorder, unspecified (principal); F10.229 Alcohol dependence with intoxication, unspecified; F17.210 Nicotine dependence, cigarettes, uncomplicated; Z88.1 Allergy status to other antibiotic agents; Z79.899 Other long term (current) drug therapy; Z79.82 Long term (current) use of aspirin
CPT/HCPCS: 99284; A9270

== ENCOUNTER 2020-02-16 09:30 | Inpatient (IN) | payer MEDICARE, MEDICAID ==
--- NOTE | 2020-02-16 09:50 | EDM.PDOC ---
ED HPI GENERAL MEDICAL PROBLEM - General Chief Complaint: Gastrointestinal Problem Stated Complaint: VOMITING BLOOD Time Seen by Provider: 02/16/20 09:35 Source of Information: Reports: Patient, Family History Limitations: Reports: No Limitations (Adequate history provided by his mother since the patient has expressive aphasia) - History of Present Illness INITIAL COMMENTS - FREE TEXT/NARRATIVE: 24-year-old male with chronic alcoholism, continues to drink in fact tried to drink this morning but was unable due to emesis so mom brought him in. He has been having active hematemesis over the past 24 hours and dark tarry stools for the last 12 to 24 hours. Onset: Unknown/Unsure Associated Symptoms: Reports: Diaphoresis, Loss of Appetite, Malaise, Nausea/ Vomiting, Weakness. Denies: Confusion, Chest Pain, Cough, Shortness of Breath - Related Data Allergies Allergy/AdvReac Type Severity Reaction Status Date / Time amoxicillin [Amoxicillin] Allergy Intermediate Rash Verified 02/16/20 09:48 Home Meds: Home Meds Acetaminophen [Tylenol] 500 mg PO Q6H PRN 05/01/17 [History] Metoprolol Tartrate 50 mg PO BID 11/24/17 [History] Albuterol [Ventolin HFA] 2 puff INH Q4H PRN 08/09/18 [History] Fluticasone Propionate [Flonase] 16 gm NS Q4HR PRN 08/09/18 [History] Past Medical History HEENT History: Reports: Impaired Vision Cardiovascular History: Reports: Aneurysm, Blood Clots/VTE/DVT, Other (See Below ) Other Cardiovascular History: 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 AORTIC REPLACEMENT MODIFIED AORTIC ARCH AND AORTIC VALVE RESUSPENSION 03/28/17 Respiratory History: Reports: None Gastrointestinal History: Reports: Pancreatitis Genitourinary History: Reports: None Musculoskeletal History: Reports: Fracture, Other (See Below) Other Musculoskeletal History: broken femur. PAIN L UPPER LEG OUTER Neurological History: Reports: CVA, Headaches, Chronic Psychiatric History: Reports: None Endocrine/Metabolic History: Reports: Hypothyroidism Hematologic History: Reports: None Immunologic History: Reports: None Oncologic (Cancer) History: Reports: None Dermatologic History: Reports: None - Infectious Disease History Infectious Disease History: Reports: Chicken Pox - Past Surgical History Cardiovascular Surgical History: Reports: AAA Repair Respiratory Surgical History: Reports: None Other Neurological Surgeries/Procedures: l CVA WITH RECANALIZTION AND EMBOLECTOMY Social & Family History - Family History Family Medical History: Unobtainable Other Endocrine/Metabolic Family History: Marfan syndrome - Caffeine Use Caffeine Use: Reports: None ED ROS GENERAL - Review of Systems Review Of Systems: See Below Constitutional: Reports: Malaise, Weakness, Decreased Appetite. Denies: Fever HEENT: Reports: No Symptoms Respiratory: Denies: Shortness of Breath Cardiovascular: Denies: Chest Pain GI/Abdominal: Reports: Hematemesis, Hematochezia, Nausea, Vomiting. Denies: Abdominal Pain : Reports: No Symptoms Skin: Reports: Pallor Neurological: Reports: Other (Chronic expressive aphasia from previous CVA) Psychiatric: Reports: Depression ED EXAM, GENERAL - Physical Exam Exam: See Below Exam Limited By: Other (Expressive aphasia, his mother does most of his talking) General Appearance: Alert, No Apparent Distress Eye Exam: Bilateral Eye: PERRL, Other (Pale conjunctiva) Head: Atraumatic Respiratory/Chest: No Respiratory Distress, Lungs Clear Cardiovascular: Regular Rate, Rhythm. No: Tachycardia GI/Abdominal: Other (Feels uncomfortable with palpation of the epigastric area, no focal rebound or guarding) Back Exam: No: CVA Tenderness (R), CVA Tenderness (L) Extremities: No: Pedal Edema Neurological: Alert, Oriented Psychiatric: Depressed Mood, Flat Affect Skin Exam: Pallor Course - Vital Signs Last Recorded V/S: Last Vital Signs Temp 98.2 F 02/16/20 09:43 Pulse 98 02/16/20 09:43 Resp 16 02/16/20 09:43 BP 108/44 L 02/16/20 09:43 Pulse Ox - Orders/Labs/Meds Orders: Active Orders 24 hr Category Date Time Status PATIENT RETYPE [BBK] Routine Lab 02/16/20 09:55 Results RED BLOOD CELLS LP [BBK] Routine Lab 02/16/20 09:55 Results TYPE AND SCREEN [BBK] Routine Lab 02/16/20 09:55 Results Octreotide [SandoSTATIN] 500 mcg Med 02/16/20 11:00 Active Sodium Chloride 0.9% [Normal Saline] 497.5 ml IV Q10H Sodium Chloride 0.9% [Normal Saline] 1,000 ml Med 02/16/20 10:00 Active IV ASDIRECTED Sodium Chloride 0.9% [Normal Saline] 100 ml Med 02/16/20 11:00 Active Pantoprazole [ProTONIX IV] 80 mg IV 10 mls/hr Medication Orders Sodium Chloride (Normal Saline) 1,000 mls @ 500 mls/hr IV ASDIRECTED [facility] Last Admin: 02/16/20 10:34 Dose: 500 mls/hr Octreotide Acetate 500 mcg/ (Sodium Chloride) 500 mls @ 50 mls/hr IV Q10H [facility] Last Admin: 02/16/20 11:07 Dose: 50 mcg/hr, 50 mls/hr Pantoprazole Sodium 80 mg/ (Sodium Chloride) 100 mls @ 10 mls/hr IV .Q10H [facility] Last Admin: 02/16/20 11:05 Dose: 10 mls/hr Labs: Laboratory Tests 02/16/20 02/16/20 02/16/20 Range/Units 09:55 09:55 09:55 WBC 8.5 (4.5-11.0) K/uL RBC 2.84 L (4.30-5.90) M/uL Hgb 8.9 L D (12.0-15.0) g/dL Hct 27.8 L (40.0-54.0) % MCV 98 (80-98) fL MCH 31 (27-31) pg MCHC 32 (32-36) % Plt Count 73 L (150-400) K/uL Neut % (Auto) 69 H (36-66) % Lymph % (Auto) 17 L (24-44) % [place] % (Auto) 13 H (2-6) % Eos % (Auto) 0 L (2-4) % Baso % (Auto) 1 (0-1) % PT 14.7 H (9.5-12.0) sec INR 1.39 H (0.80-1.20) Sodium 139 L (140-148) mmol/L Potassium 4.6 (3.6-5.2) mmol/L Chloride 96 L (100-108) mmol/L Carbon Dioxide 27 (21-32) mmol/L Anion Gap 20.6 H (5.0-14.0) mmol/L BUN 22 H D (7-18) mg/dL Creatinine 0.8 (0.8-1.3) mg/dL Est Cr Clr Drug Dosing TNP Estimated GFR (MDRD) > 60 (>60) Glucose 99 (74-106) mg/dL Calcium 8.4 L (8.5-10.1) mg/dL Total Bilirubin 4.6 H D (0.2-1.0) mg/dL AST 160 H (15-37) U/L ALT 37 (12-78) U/L Alkaline Phosphatase 249 H (46-116) U/L Total Protein 7.0 (6.4-8.2) g/dL Albumin 3.0 L (3.4-5.0) g/dL Globulin 4.0 H (2.3-3.5) g/dL Albumin/Globulin Ratio 0.8 L (1.2-2.2) Ethyl Alcohol mg/dL Blood Type Gel Antibody Screen Crossmatch 02/16/20 02/16/20 Range/Units 09:55 09:55 WBC (4.5-11.0) K/uL RBC (4.30-5.90) M/uL Hgb (12.0-15.0) g/dL Hct (40.0-54.0) % MCV (80-98) fL MCH (27-31) pg MCHC (32-36) % Plt Count (150-400) K/uL Neut % (Auto) (36-66) % Lymph % (Auto) (24-44) % [place] % (Auto) (2-6) % Eos % (Auto) (2-4) % Baso % (Auto) (0-1) % PT (9.5-12.0) sec INR (0.80-1.20) Sodium (140-148) mmol/L Potassium (3.6-5.2) mmol/L Chloride (100-108) mmol/L Carbon Dioxide (21-32) mmol/L Anion Gap (5.0-14.0) mmol/L BUN (7-18) mg/dL Creatinine (0.8-1.3) mg/dL Est Cr Clr Drug Dosing Estimated GFR (MDRD) (>60) Glucose (74-106) mg/dL Calcium (8.5-10.1) mg/dL Total Bilirubin (0.2-1.0) mg/dL AST (15-37) U/L ALT (12-78) U/L Alkaline Phosphatase (46-116) U/L Total Protein (6.4-8.2) g/dL Albumin (3.4-5.0) g/dL Globulin (2.3-3.5) g/dL Albumin/Globulin Ratio (1.2-2.2) Ethyl Alcohol 279 mg/dL Blood Type O POSITIVE Gel Antibody Screen Negative Crossmatch See Detail Meds: Medications Generic Name Dose Route Start Last Admin Trade Name Freq PRN Reason Stop Dose Admin Sodium Chloride 1,000 mls @ 500 mls/hr 02/16/20 10:00 02/16/20 10:34 Normal Saline IV 500 mls/hr ASDIRECTED ZAKIA Administration Octreotide Acetate 500 mcg/ 500 mls @ 50 mls/hr 02/16/20 11:00 02/16/20 11:07 Sodium Chloride IV 50 mcg/hr Q10H ZAKIA 50 mls/hr Administration 50 MCG/HR Pantoprazole Sodium 80 mg/ 100 mls @ 10 mls/hr 02/16/20 11:00 02/16/20 11:05 Sodium Chloride IV 10 mls/hr .Q10H ZAKIA Administration Discontinued Medications Generic Name Dose Route Start Last Admin Trade Name Jerodq PRN Reason Stop Dose Admin Phytonadione 5 mg/ Sodium 50.5 mls @ 100 mls/hr 02/16/20 11:00 02/16/20 11:34 Chloride IV 02/16/20 11:30 100 mls/hr NOW ONE Administration Octreotide Acetate 50 mcg 02/16/20 10:39 02/16/20 10:51 Sandostatin IVPUSH 02/16/20 10:40 50 mcg ONETIME ONE Administration Pantoprazole Sodium 80 mg 02/16/20 10:00 02/16/20 10:35 Protonix Iv IVPUSH 80 mg .BOLUS ZAKIA Administration - Re-Assessments/Exams Free Text/Narrative Re-Assessment/Exam: 02/16/20 12:27 Patient had another large bloody emesis while in the emergency room. 2 IVs were started and the patient was bolused with normal saline, CBC CMP and EtOH were obtained and 2 units of packed RBCs crossmatched. 80 mg of IV Protonix given. EtOH returned 0.28, 02/16/20 12:28 Bilirubin AST and alk phos were elevated and hemoglobin 8.9 which is significantly lower than last reading. Consulted Dr. Emanuel for admission for acute GI bleed and he will be admitted to ICU. Departure - Departure Time of Disposition: 12:20 Disposition: Admitted As Inpatient 64 Clinical Impression: Alcohol abuse, Acute GI bleeding, Acute blood loss anemia Alcohol intoxication Qualifiers: Complication of substance-induced condition: with unspecified complication Qualified Code(s): F10.929 - Alcohol use, unspecified with intoxication, unspecified - Discharge Information Sepsis Event Note - Evaluation Sepsis Screening Result: No Definite Risk - Focused Exam Vital Signs: Vital Signs Temp Pulse Resp BP 02/16/20 09:43 98.2 F 98 16 108/44 L Date Exam was Performed: 02/16/20 Time Exam was Performed: 12:25 - My Orders Last 24 Hours: My Active Orders 02/16/20 09:55 PATIENT RETYPE [BBK] Routine RED BLOOD CELLS LP [BBK] Routine TYPE AND SCREEN [BBK] Routine 02/16/20 10:00 Sodium Chloride 0.9% [Normal Saline] 1,000 ml IV ASDIRECTED - Assessment/Plan Last 24 Hours: My Active Orders 02/16/20 09:55 PATIENT RETYPE [BBK] Routine RED BLOOD CELLS LP [BBK] Routine TYPE AND SCREEN [BBK] Routine 02/16/20 10:00 Sodium Chloride 0.9% [Normal Saline] 1,000 ml IV ASDIRECTED
[2020-02-16] MEDS ORDERED: Pantoprazole 40 MG Vial IVPUSH SCH (10:00)
[2020-02-16] MEDS ORDERED: Sodium Chloride 0.9% 1,000 ML IV SCH (10:00)
[2020-02-16] MEDS ORDERED: Octreotide 100 MCG/ML SDV IVPUSH ONE (10:39)
--- NOTE | 2020-02-16 10:53 | PCM.HP.2 ---
H&P History of Present Illness - General Date of Service: 02/16/20 Admit Problem/Dx: Admission Diagnosis/Problem Admission Diagnosis/Problem Bleeding Source of Information: Patient, Provider, RN Notes Reviewed History Limitations: Reports: No Limitations - History of Present Illness Initial Comments - Free Text/Narative: Mr. Skelton is a 24-year-old gentleman who was admitted through the emergency department with weakness, hematemesis, and melena, secondary to an upper GI bleed. Despite his relatively young age he has had a history of multiple medical issues. 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 He did undergo surgical repair of the aortic dissection. In addition he has had longstanding alcohol abuse with history of pancreatitis, probable cirrhosis , and acute alcoholic hepatitis. For the past week he is noted intermittent episodes of hematemesis associated with epigastric abdominal pain nausea and vomiting. Hematemesis became worse yesterday and was associated with melenic appearing stools. Because of profound weakness he presented to the emergency department for further evaluation and management. Bilirubin is noted to be elevated 4.6 with an elevation in prothrombin time. Calculated [place] discriminant function is 17. Pulmonary is 8.9 and his alcohol level was significantly elevated on admission. - Related Data Allergies/Adverse Reactions: Allergies Allergy/AdvReac Type Severity Reaction Status Date / Time amoxicillin [Amoxicillin] Allergy Intermediate Rash Verified 02/16/20 09:48 Home Medications: Home Meds Acetaminophen [Tylenol] 500 mg PO Q6H PRN 05/01/17 [History] Metoprolol Tartrate 50 mg PO BID 11/24/17 [History] Albuterol [Ventolin HFA] 2 puff INH Q4H PRN 08/09/18 [History] Fluticasone Propionate [Flonase] 16 gm NS Q4HR PRN 08/09/18 [History] Past Medical History HEENT History: Reports: Impaired Vision Cardiovascular History: Reports: Aneurysm, Blood Clots/VTE/DVT, Other (See Below ) Other Cardiovascular History: 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 AORTIC REPLACEMENT MODIFIED AORTIC ARCH AND AORTIC VALVE RESUSPENSION 03/28/17 Respiratory History: Reports: None Gastrointestinal History: Reports: Pancreatitis Genitourinary History: Reports: None Musculoskeletal History: Reports: Fracture, Other (See Below) Other Musculoskeletal History: broken femur. PAIN L UPPER LEG OUTER Neurological History: Reports: CVA, Headaches, Chronic Psychiatric History: Reports: None Other Psychiatric History: neurocognitive issues s/t stroke Endocrine/Metabolic History: Reports: Hypothyroidism Hematologic History: Reports: None Immunologic History: Reports: None Oncologic (Cancer) History: Reports: None Dermatologic History: Reports: None - Infectious Disease History Infectious Disease History: Reports: Chicken Pox - Past Surgical History Cardiovascular Surgical History: Reports: AAA Repair Respiratory Surgical History: Reports: None Other Neurological Surgeries/Procedures: l CVA WITH RECANALIZTION AND EMBOLECTOMY Social & Family History - Family History Family Medical History: Unobtainable Other Endocrine/Metabolic Family History: Marfan syndrome - Tobacco Use Smoking Status *Q: Current Every Day Smoker Years of Tobacco use: 10 Packs/Tins Daily: 0.5 Second Hand Smoke Exposure: Yes - Caffeine Use Caffeine Use: Reports: None - Alcohol Use Days Per Week of Alcohol Use: 7 Number of Drinks Per Day: 8 Total Drinks Per Week: 56 Date of Last Drink: 02/16/20 Time of Last Drink: 07:30 - Recreational Drug Use Recreational Drug Use: No H&P Review of Systems - Review of Systems: Review Of Systems: See Below General: Reports: Weakness, Fatigue. Denies: Fever, Chills HEENT: Reports: No Symptoms Pulmonary: Reports: No Symptoms Cardiovascular: Reports: No Symptoms Gastrointestinal: Reports: Abdominal Pain, Hematemesis, Melena, Nausea, Vomiting. Denies: Constipation, Diarrhea, Difficulty Swallowing, Hematochezia Genitourinary: Reports: No Symptoms Musculoskeletal: Reports: No Symptoms Skin: Reports: No Symptoms Psychiatric: Reports: No Symptoms Neurological: Reports: Pre-Existing Deficit (Right-sided weakness and expressive aphasia) Hematologic/Lymphatic: Reports: No Symptoms Immunologic: Reports: No Symptoms Exam - Exam Exam: See Below - Vital Signs Vital Signs: Last Vital Signs Temp 98.2 F 02/16/20 09:43 Pulse 98 02/16/20 09:43 Resp 16 02/16/20 09:43 BP 108/44 L 02/16/20 09:43 Pulse Ox - Exam General: Alert, Oriented, Cooperative, Moderate Distress HEENT: Conjunctiva Clear, Hearing Intact, Normal Nasal Septum, Posterior Pharynx Clear, Pupils Equal, Scleral Icterus. No: Mucosa Moist & [place] Neck: Supple, Trachea Midline, +2 Carotid Pulse wo Bruit Lungs: Clear to Auscultation, Normal Respiratory Effort Cardiovascular: Regular Rate, Regular Rhythm, Normal S1, Normal S2. No: Systolic Murmur, Diastolic Murmur GI/Abdominal Exam: Soft, Non-Tender, No Organomegaly, No Distention Back Exam: Normal Inspection, Full Range of Motion Extremities: Non-Tender, No Pedal Edema Skin: Warm, Dry, Intact Neurological: Focal Deficit, Other (Residual right-sided weakness and expressive a aphasia from previous CVA). No: Strength Equal Bilateral, Normal Speech, Normal Tone, Sensation Intact Neuro Extensive - Mental Status: Alert, Oriented x3, Normal Mood/Affect, Normal Cognition, Memory Intact - Patient Data Lab Results Last 24 hrs: Laboratory Results - last 24 hr 02/16/20 02/16/20 02/16/20 Range/Units 09:55 09:55 09:55 WBC 8.5 (4.5-11.0) K/uL RBC 2.84 L (4.30-5.90) M/uL Hgb 8.9 L D (12.0-15.0) g/dL Hct 27.8 L (40.0-54.0) % MCV 98 (80-98) fL MCH 31 (27-31) pg MCHC 32 (32-36) % Plt Count 73 L (150-400) K/uL Neut % (Auto) 69 H (36-66) % Lymph % (Auto) 17 L (24-44) % [place] % (Auto) 13 H (2-6) % Eos % (Auto) 0 L (2-4) % Baso % (Auto) 1 (0-1) % PT 14.7 H (9.5-12.0) sec INR 1.39 H (0.80-1.20) Sodium 139 L (140-148) mmol/L Potassium 4.6 (3.6-5.2) mmol/L Chloride 96 L (100-108) mmol/L Carbon Dioxide 27 (21-32) mmol/L Anion Gap 20.6 H (5.0-14.0) mmol/L BUN 22 H D (7-18) mg/dL Creatinine 0.8 (0.8-1.3) mg/dL Est Cr Clr Drug Dosing TNP Estimated GFR (MDRD) > 60 (>60) Glucose 99 (74-106) mg/dL Calcium 8.4 L (8.5-10.1) mg/dL Total Bilirubin 4.6 H D (0.2-1.0) mg/dL AST 160 H (15-37) U/L ALT 37 (12-78) U/L Alkaline Phosphatase 249 H (46-116) U/L Total Protein 7.0 (6.4-8.2) g/dL Albumin 3.0 L (3.4-5.0) g/dL Globulin 4.0 H (2.3-3.5) g/dL Albumin/Globulin Ratio 0.8 L (1.2-2.2) Ethyl Alcohol mg/dL 02/16/20 Range/Units 09:55 WBC (4.5-11.0) K/uL RBC (4.30-5.90) M/uL Hgb (12.0-15.0) g/dL Hct (40.0-54.0) % MCV (80-98) fL MCH (27-31) pg MCHC (32-36) % Plt Count (150-400) K/uL Neut % (Auto) (36-66) % Lymph % (Auto) (24-44) % [place] % (Auto) (2-6) % Eos % (Auto) (2-4) % Baso % (Auto) (0-1) % PT (9.5-12.0) sec INR (0.80-1.20) Sodium (140-148) mmol/L Potassium (3.6-5.2) mmol/L Chloride (100-108) mmol/L Carbon Dioxide (21-32) mmol/L Anion Gap (5.0-14.0) mmol/L BUN (7-18) mg/dL Creatinine (0.8-1.3) mg/dL Est Cr Clr Drug Dosing Estimated GFR (MDRD) (>60) Glucose (74-106) mg/dL Calcium (8.5-10.1) mg/dL Total Bilirubin (0.2-1.0) mg/dL AST (15-37) U/L ALT (12-78) U/L Alkaline Phosphatase (46-116) U/L Total Protein (6.4-8.2) g/dL Albumin (3.4-5.0) g/dL Globulin (2.3-3.5) g/dL Albumin/Globulin Ratio (1.2-2.2) Ethyl Alcohol 279 mg/dL Result Diagrams: 02/16/20 09:55 02/16/20 09:55 Sepsis Event Note - Evaluation Sepsis Screening Result: No Definite Risk - Focused Exam Vital Signs: Vital Signs Temp Pulse Resp BP 02/16/20 09:43 98.2 F 98 16 108/44 L Date Exam was Performed: 02/16/20 Time Exam was Performed: 13:05 *Q Meaningful Use (ADM) - VTE Risk Assess *Q Each Risk Factor Represents 1 Point: None Total Score 1 Point Risk Factors: 0 Each Risk Factor Represents 2 Points: None Total Score 2 Point Risk Factors: 0 Each Risk Factor Represents 3 Points: None Total Score 3 Point Risk Factors: 0 Each Risk Factor Represents 5 Points: None Total Score 5 Point Risk Factors: 0 Venous Thromboembolism Risk Factor Score *Q: 0 Problem List Initiated/Reviewed/Updated: Yes Orders Last 24hrs: Active Orders 24 hr Category Date Time Status Patient Status Manage Transfer [TRANSFER] Routine ADT 02/16/20 10:40 Active RED BLOOD CELLS LP [BBK] Routine Lab 02/16/20 09:55 Received TYPE AND SCREEN [BBK] Routine Lab 02/16/20 09:55 Received Octreotide [SandoSTATIN] 500 mcg Med 02/16/20 11:00 Active Sodium Chloride 0.9% [Normal Saline] 497.5 ml IV Q10H Sodium Chloride 0.9% [Normal Saline] 1,000 ml Med 02/16/20 10:00 Active IV ASDIRECTED Sodium Chloride 0.9% [Normal Saline] 100 ml Med 02/16/20 11:00 Active Pantoprazole [ProTONIX IV] 80 mg IV 10 mls/hr Resuscitation Status Routine Resus Stat 02/16/20 10:41 Ordered Medication Orders Sodium Chloride (Normal Saline) 1,000 mls @ 500 mls/hr IV ASDIRECTED ZAKIA Last Admin: 02/16/20 10:34 Dose: 500 mls/hr Octreotide Acetate 500 mcg/ (Sodium Chloride) 500 mls @ 50 mls/hr IV Q10H ZAKIA Pantoprazole Sodium 80 mg/ (Sodium Chloride) 100 mls @ 10 mls/hr IV .Q10H ZAKIA Assessment/Plan Comment:: ASSESSMENT AND PLAN UPPER GI BLEED-1 week history of hematemesis, increased since last night with associated melena. Possible ulcer disease versus gastritis versus esophageal varices. -IV fluids for hydration -Maintain 2 IV sites -2 units of red blood cells on hold -N.p.o. -Protonix 80 mg IV given in emergency department, continuous Protonix infusion -Octreotide bolus and continuous infusion -Serial hemoglobin levels -Monitor in ICU -Consult Dr. Cintron for EGD in a.m. ACUTE BLOOD LOSS ANEMIA-secondary to upper GI bleed -Management as above ALCOHOL ABUSE-chronic, monitor for alcohol withdrawal -Alcohol withdrawal protocol -Banana bag -Scheduled gabapentin per protocol -Oral folic acid and thiamine -Discussed treatment options, if patient interested ACUTE ALCOHOLIC HEPATITIS-[facility] discriminant function of 17 CHRONIC PANCREATITIS-elevation in lipase level 2 times normal. HISTORY OF AORTIC DISSECTION WITH CVA-status post surgical repair MAINTENANCE ISSUES -DVT prophylaxis; not indicated -GI prophylaxis; Protonix as above -[place] catheter; not indicated -Nutrition; n.p.o. -Nicotine dependence; not required CODE STATUS-FULL CODE ADMISSION STATUS-patient will be admitted to inpatient status, expect at least a 2 night hospital stay for evaluation and management of problems as outlined above. At the time of this admission I do not reasonably expected evaluation and management of this problem will require more than a 96 hour hospital stay. DISPOSITION-anticipate discharge to home after the hospital stay. PRIMARY CARE PROVIDER- - Mortality Measure Prognosis:: Good
[2020-02-16] MEDS ORDERED: Phytonadione 5 MG in Sodium Chloride 0.9% 50 ML IV ONE (11:00)
[2020-02-16] MEDS: Sodium Chloride 0.9% 100 ML with Pantoprazole 80 MG IV SCH ×4 (11:05→20:19)
[2020-02-16] MEDS: Octreotide 500 MCG in Sodium Chloride 0.9% 497.5 ML IV SCH ×2 (11:07→20:45)
[2020-02-16] MEDS ORDERED: Sodium Chloride 0.9% 10 ML Syringe FLUSH PRN (12:32)
[2020-02-16] MEDS ORDERED: Ondansetron 4 MG/2 ML SDV IV PRN (12:32)
[2020-02-16] MEDS ORDERED: Albuterol 8 GM Inhaler INH PRN (12:32)
[2020-02-16] MEDS ORDERED: MVI, Adult with Vitamin K 10 ML, Thiamine 100 MG, Folic Acid 1 MG, Magnesium Sulfate 2 ... IV ONE ×5 (13:00)
[2020-02-16] MEDS: LORazepam 2 MG/ML SDV IV SCH ×3 (13:13→22:32)
[2020-02-16] MEDS: Gabapentin 400 MG Cap PO SCH ×2 (13:21→22:26)
[2020-02-16] MEDS: Folic Acid 1 MG Tab PO SCH (13:21)
[2020-02-16] MEDS: Thiamine 100 MG Tab PO SCH (13:22)
[2020-02-16] MEDS: Sodium Chloride 0.9% 1,000 ML IV SCH (23:25)
[2020-02-17] MEDS: LORazepam 2 MG/ML SDV IV SCH ×3 (00:28→23:36)
[2020-02-17] MEDS: Sodium Chloride 0.9% 100 ML with Pantoprazole 80 MG IV SCH ×4 (06:04→16:10)
[2020-02-17] MEDS: Gabapentin 400 MG Cap PO SCH ×3 (06:28→21:31)
[2020-02-17] MEDS: Octreotide 500 MCG in Sodium Chloride 0.9% 497.5 ML IV SCH ×2 (06:49→16:55)
[2020-02-17] MEDS: Sodium Chloride 0.9% 1,000 ML IV SCH ×2 (06:51→22:04)
[2020-02-17] MEDS ORDERED: fentaNYL 100 MCG/2 ML SDV ONE (07:23)
[2020-02-17] MEDS ORDERED: Propofol 200 MG/20 ML SDV ONE (07:23)
[2020-02-17] MEDS ORDERED: Midazolam 1 MG/ML 2 ML SDV ONE (07:23)
--- NOTE | 2020-02-17 09:28 | PCM.PN ---
- General Info Date of Service: 02/17/20 Subjective Update: Mr. Skelton is shown evidence of active bleeding since admission with drop in hemoglobin, requiring transfusion of 1 unit of red blood cells. He also has shown evidence of alcohol withdrawal and is been managed per alcohol withdrawal protocol. He is sedated and sleeping this morning, plan is for EGD by Dr. Cintron. Because of sedation he is unable to provide meaningful information concerning symptoms or review of systems. - Patient Data Vitals - Most Recent: Last Vital Signs Temp 100.0 F 02/17/20 08:00 Pulse 122 H 02/17/20 08:00 Resp 19 02/17/20 08:00 BP 110/56 L 02/17/20 08:00 Pulse Ox 94 L 02/17/20 06:00 Weight - Most Recent: 136 lb 7.458 oz I&O - Last 24 Hours: Intake & Output 02/16/20 02/17/20 02/17/20 22:59 06:59 14:59 Intake Total 186 1912 Output Total 50 Balance 1813 1911 Lab Results Last 24 Hours: Laboratory Results - last 24 hr 02/16/20 02/16/20 02/16/20 Range/Units 09:55 09:55 09:55 WBC 8.5 (4.5-11.0) K/uL RBC 2.84 L (4.30-5.90) M/uL Hgb 8.9 L D (12.0-15.0) g/dL Hct 27.8 L (40.0-54.0) % MCV 98 (80-98) fL MCH 31 (27-31) pg MCHC 32 (32-36) % Plt Count 73 L (150-400) K/uL Neut % (Auto) 69 H (36-66) % Lymph % (Auto) 17 L (24-44) % [place] % (Auto) 13 H (2-6) % Eos % (Auto) 0 L (2-4) % Baso % (Auto) 1 (0-1) % PT 14.7 H (9.5-12.0) sec INR 1.39 H (0.80-1.20) Sodium 139 L (140-148) mmol/L Potassium 4.6 (3.6-5.2) mmol/L Chloride 96 L (100-108) mmol/L Carbon Dioxide 27 (21-32) mmol/L Anion Gap 20.6 H (5.0-14.0) mmol/L BUN 22 H D (7-18) mg/dL Creatinine 0.8 (0.8-1.3) mg/dL Est Cr Clr Drug Dosing TNP Estimated GFR (MDRD) > 60 (>60) Glucose 99 (74-106) mg/dL Calcium 8.4 L (8.5-10.1) mg/dL Total Bilirubin 4.6 H D (0.2-1.0) mg/dL AST 160 H (15-37) U/L ALT 37 (12-78) U/L Alkaline Phosphatase 249 H (46-116) U/L Total Protein 7.0 (6.4-8.2) g/dL Albumin 3.0 L (3.4-5.0) g/dL Globulin 4.0 H (2.3-3.5) g/dL Albumin/Globulin Ratio 0.8 L (1.2-2.2) Ethyl Alcohol mg/dL Blood Type Gel Antibody Screen Crossmatch 02/16/20 02/16/20 02/16/20 Range/Units 09:55 09:55 13:00 WBC (4.5-11.0) K/uL RBC (4.30-5.90) M/uL Hgb 7.6 L (12.0-15.0) g/dL Hct (40.0-54.0) % MCV (80-98) fL MCH (27-31) pg MCHC (32-36) % Plt Count (150-400) K/uL Neut % (Auto) (36-66) % Lymph % (Auto) (24-44) % [place] % (Auto) (2-6) % Eos % (Auto) (2-4) % Baso % (Auto) (0-1) % PT (9.5-12.0) sec INR (0.80-1.20) Sodium (140-148) mmol/L Potassium (3.6-5.2) mmol/L Chloride (100-108) mmol/L Carbon Dioxide (21-32) mmol/L Anion Gap (5.0-14.0) mmol/L BUN (7-18) mg/dL Creatinine (0.8-1.3) mg/dL Est Cr Clr Drug Dosing Estimated GFR (MDRD) (>60) Glucose (74-106) mg/dL Calcium (8.5-10.1) mg/dL Total Bilirubin (0.2-1.0) mg/dL AST (15-37) U/L ALT (12-78) U/L Alkaline Phosphatase (46-116) U/L Total Protein (6.4-8.2) g/dL Albumin (3.4-5.0) g/dL Globulin (2.3-3.5) g/dL Albumin/Globulin Ratio (1.2-2.2) Ethyl Alcohol 279 mg/dL Blood Type O POSITIVE Gel Antibody Screen Negative Crossmatch See Detail 02/16/20 02/16/20 02/17/20 Range/Units 17:00 23:00 05:48 WBC 7.7 (4.5-11.0) K/uL RBC 2.56 L (4.30-5.90) M/uL Hgb 8.8 L 8.9 L 8.1 L (12.0-15.0) g/dL Hct 24.8 L (40.0-54.0) % MCV 97 (80-98) fL MCH 32 H (27-31) pg MCHC 33 (32-36) % Plt Count 58 L (150-400) K/uL Neut % (Auto) 65 (36-66) % Lymph % (Auto) 16 L (24-44) % [place] % (Auto) 17 H (2-6) % Eos % (Auto) 1 L (2-4) % Baso % (Auto) 2 H (0-1) % PT (9.5-12.0) sec INR (0.80-1.20) Sodium (140-148) mmol/L Potassium (3.6-5.2) mmol/L Chloride (100-108) mmol/L Carbon Dioxide (21-32) mmol/L Anion Gap (5.0-14.0) mmol/L BUN (7-18) mg/dL Creatinine (0.8-1.3) mg/dL Est Cr Clr Drug Dosing Estimated GFR (MDRD) (>60) Glucose (74-106) mg/dL Calcium (8.5-10.1) mg/dL Total Bilirubin (0.2-1.0) mg/dL AST (15-37) U/L ALT (12-78) U/L Alkaline Phosphatase (46-116) U/L Total Protein (6.4-8.2) g/dL Albumin (3.4-5.0) g/dL Globulin (2.3-3.5) g/dL Albumin/Globulin Ratio (1.2-2.2) Ethyl Alcohol mg/dL Blood Type Gel Antibody Screen Crossmatch 02/17/20 02/17/20 Range/Units 05:48 05:48 WBC (4.5-11.0) K/uL RBC (4.30-5.90) M/uL Hgb (12.0-15.0) g/dL Hct (40.0-54.0) % MCV (80-98) fL MCH (27-31) pg MCHC (32-36) % Plt Count (150-400) K/uL Neut % (Auto) (36-66) % Lymph % (Auto) (24-44) % [place] % (Auto) (2-6) % Eos % (Auto) (2-4) % Baso % (Auto) (0-1) % PT 13.6 H (9.5-12.0) sec INR 1.28 H (0.80-1.20) Sodium 144 (140-148) mmol/L Potassium 3.9 (3.6-5.2) mmol/L Chloride 106 (100-108) mmol/L Carbon Dioxide 31 (21-32) mmol/L Anion Gap 7.5 (5.0-14.0) mmol/L BUN 21 H (7-18) mg/dL Creatinine 0.8 (0.8-1.3) mg/dL Est Cr Clr Drug Dosing 121.72 Estimated GFR (MDRD) > 60 (>60) Glucose 103 (74-106) mg/dL Calcium 7.6 L (8.5-10.1) mg/dL Total Bilirubin (0.2-1.0) mg/dL AST (15-37) U/L ALT (12-78) U/L Alkaline Phosphatase (46-116) U/L Total Protein (6.4-8.2) g/dL Albumin (3.4-5.0) g/dL Globulin (2.3-3.5) g/dL Albumin/Globulin Ratio (1.2-2.2) Ethyl Alcohol mg/dL Blood Type Gel Antibody Screen Crossmatch Med Orders - Current: Current Medications Albuterol (Ventolin Hfa) 0 gm INH Q4H PRN PRN Reason: Shortness of Breath Folic Acid (Folic Acid) 1 mg PO DAILY [facility] Last Admin: 02/16/20 13:21 Dose: 1 mg Gabapentin (Neurontin) 400 mg PO Q8H ZAKIA Stop: 02/20/20 06:01 Last Admin: 02/17/20 06:28 Dose: 400 mg Octreotide Acetate 500 mcg/ (Sodium Chloride) 500 mls @ 50 mls/hr IV Q10H ZAKIA Last Admin: 02/17/20 06:49 Dose: 50 mcg/hr, 50 mls/hr Pantoprazole Sodium 80 mg/ (Sodium Chloride) 100 mls @ 10 mls/hr IV .Q10H [facility] Last Admin: 02/17/20 06:04 Dose: 10 mls/hr Sodium Chloride (Normal Saline) 1,000 mls @ 125 mls/hr IV ASDIRECTED [facility] Last Admin: 02/17/20 06:51 Dose: 125 mls/hr Lorazepam (Ativan) 0 mg IV ASDIRECTED ZAKIA; Protocol Last Admin: 02/17/20 00:28 Dose: 2 mg Lorazepam (Ativan) 0 mg PO ASDIRECTED [facility]; Protocol Ondansetron HCl (Zofran) 4 mg IV Q4H PRN PRN Reason: Nausea/Vomiting Sodium Chloride (Saline Flush) 10 ml FLUSH ASDIRECTED PRN PRN Reason: Keep Vein Open Thiamine HCl (Vitamin B-1) 100 mg PO DAILY [facility] Last Admin: 02/16/20 13:22 Dose: 100 mg Discontinued Medications Fentanyl (Sublimaze) Confirm Administered Dose 100 mcg .ROUTE .STK-MED ONE Stop: 02/17/20 07:24 Sodium Chloride (Normal Saline) 1,000 mls @ 500 mls/hr IV ASDIRECTED [facility] Last Admin: 02/16/20 10:34 Dose: 500 mls/hr Phytonadione 5 mg/ Sodium (Chloride) 50.5 mls @ 100 mls/hr IV NOW ONE Stop: 02/16/20 11:30 Last Admin: 02/16/20 11:34 Dose: 100 mls/hr Multivitamins/Minerals 10 ml/Thiamine HCl 100 mg/ Folic Acid 1 mg/ Magnesium Sulfate 2 gm/ Sodium Chloride 1,015.2 mls @ 100 mls/hr IV ONETIME ONE Stop: 02/16/20 23:09 Last Admin: 02/16/20 13:21 Dose: 100 mls/hr Midazolam HCl (Versed 1 Mg/Ml) Confirm Administered Dose 2 mg .ROUTE .STK-MED ONE Stop: 02/17/20 07:24 Octreotide Acetate (Sandostatin) 50 mcg IVPUSH ONETIME ONE Stop: 02/16/20 10:40 Last Admin: 02/16/20 10:51 Dose: 50 mcg Pantoprazole Sodium (Protonix Iv) 80 mg IVPUSH .BOLUS ZAKIA Last Admin: 02/16/20 10:35 Dose: 80 mg Propofol (Diprivan 20 Ml) Confirm Administered Dose 200 mg .ROUTE .STK-MED ONE Stop: 02/17/20 07:24 - Exam General: Sedated, Lethargic Lungs: Clear to Auscultation, Normal Respiratory Effort Cardiovascular: Regular Rhythm, No Murmurs, Tachycardia GI/Abdominal Exam: Soft, Non-Tender, No Organomegaly, No Distention Extremities: Non-Tender, No Pedal Edema Skin: Warm, Dry, Intact Sepsis Event Note - Evaluation Sepsis Screening Result: No Definite Risk - Focused Exam Vital Signs: Vital Signs Temp Pulse Resp BP Pulse Ox 02/17/20 08:00 100.0 F 122 H 19 110/56 L 02/17/20 06:00 17 121/58 L 94 L 02/17/20 05:00 18 110/54 L 94 L 02/17/20 04:00 96.5 F L 18 120/51 L 99 02/17/20 03:00 17 106/49 L 96 02/17/20 01:00 17 117/50 L 98 02/17/20 00:00 98.3 F 17 111/48 L 96 02/16/20 23:00 16 120/58 L 99 02/16/20 22:00 18 116/52 L 99 Date Exam was Performed: 02/17/20 Time Exam was Performed: 09:23 - Problem List Review Problem List Initiated/Reviewed/Updated: Yes - My Orders Last 24 Hours: My Active Orders 02/16/20 10:41 Resuscitation Status Routine 02/16/20 11:00 Octreotide [SandoSTATIN] 500 mcg Sodium Chloride 0.9% [Normal Saline] 497.5 ml IV Q10H Sodium Chloride 0.9% [Normal Saline] 100 ml Pantoprazole [ProTONIX IV] 80 mg IV 10 mls/hr 02/16/20 12:32 Patient Status [ADT] Routine Ambulate [RC] QID CIWAA Assessment [RC] Q4H Cardiac Monitoring [RC] Q6H Height and Weight [RC] DAILY Intake and Output [RC] QSHIFT Notify Provider Consults [RC] ASDIRECTED Notify Provider Vital Signs [RC] ASDIRECTED Notify Provider [RC] PRN Oxygen Therapy [RC] PRN Peripheral IV Care [RC] . DIRECTED Pulse Oximetry [RC] CONTINUOUS Up to Chair [RC] QID Vital Signs [RC] Q2H Consult to Physician [CONS] Routine Albuterol [Ventolin HFA] 0 gm INH Q4H PRN LORazepam [Ativan] See Protocol IV ASDIRECTED LORazepam [Ativan] See Protocol PO ASDIRECTED Ondansetron [Zofran] 4 mg IV Q4H PRN Sodium Chloride 0.9% [Normal Saline] 1,000 ml IV ASDIRECTED Sodium Chloride 0.9% [Saline Flush] 10 ml FLUSH ASDIRECTED PRN Peripheral IV Insertion Adult [OM.PC] Routine VTE Pharmacological Contraindications [AST] Per Unit Routine 02/16/20 13:52 Transfuse Red Blood Cells [COMM] Routine 02/16/20 14:00 Folic Acid 1 mg PO DAILY Gabapentin [Neurontin] 400 mg PO Q8H Thiamine [Vitamin B-1] 100 mg PO DAILY 02/17/20 11:00 HGB [HEMOGLOBIN] [HEME] Stat 02/17/20 17:00 HGB [HEMOGLOBIN] [HEME] Stat 02/17/20 23:00 HGB [HEMOGLOBIN] [HEME] Stat 02/18/20 05:00 CBC WITH AUTO DIFF [HEME] Timed COMPREHENSIVE METABOLIC PN,CMP [CHEM] Timed INR,PT,PROTHROMBIN TIME [COAG] Timed - Plan Plan:: ASSESSMENT AND PLAN UPPER GI BLEED-further bleeding since admission, requiring transfusion of 1 unit of red blood cells -IV fluids for hydration -Maintain 2 IV sites -2 units of red blood cells on hold -N.p.o. -Protonix continuous Protonix infusion -Octreotide continuous infusion -Serial hemoglobin levels -Monitor in ICU -Consult Dr. Cintron for EGD today ACUTE BLOOD LOSS ANEMIA-secondary to upper GI bleed -Management as above ALCOHOL ABUSE-evidence of alcohol withdrawal managed per protocol -Alcohol withdrawal protocol -Banana bag -Scheduled gabapentin per protocol -Oral folic acid and thiamine -Discussed treatment options, if patient interested ACUTE ALCOHOLIC HEPATITIS CHRONIC PANCREATITIS-elevation in lipase level 2 times normal. HISTORY OF AORTIC DISSECTION WITH CVA-status post surgical repair MAINTENANCE ISSUES -DVT prophylaxis; not indicated -GI prophylaxis; Protonix as above -[place] catheter; not indicated -Nutrition; n.p.o. -Nicotine dependence; not required CODE STATUS-FULL CODE ADMISSION STATUS-patient will be admitted to inpatient status, expect at least a 2 night hospital stay for evaluation and management of problems as outlined above. At the time of this admission I do not reasonably expected evaluation and management of this problem will require more than a 96 hour hospital stay. DISPOSITION-anticipate discharge to home after the hospital stay. PRIMARY CARE PROVIDER-
[2020-02-17] MEDS: Folic Acid 1 MG Tab PO SCH (11:01)
[2020-02-17] MEDS: Thiamine 100 MG Tab PO SCH (11:01)
[2020-02-17] MEDS: LORazepam 1 MG Tab PO SCH (11:11)
[2020-02-18] MEDS: Sodium Chloride 0.9% 100 ML with Pantoprazole 80 MG IV SCH ×2 (02:31)
[2020-02-18] MEDS: Octreotide 500 MCG in Sodium Chloride 0.9% 497.5 ML IV SCH (02:33)
[2020-02-18] MEDS: Gabapentin 400 MG Cap PO SCH (05:19)
[2020-02-18] MEDS: Sodium Chloride 0.9% 1,000 ML IV SCH (05:33)
[2020-02-18] MEDS: LORazepam 2 MG/ML SDV IV SCH ×10 (05:53→20:38)
[2020-02-18] MEDS ORDERED: Potassium Chloride 20 MEQ Tab.ER PO ONE (08:15)
[2020-02-18] MEDS: Folic Acid 1 MG Tab PO SCH (08:48)
[2020-02-18] MEDS: Thiamine 100 MG Tab PO SCH (08:49)
[2020-02-18] MEDS ORDERED: Gabapentin 400 MG Cap PO SCH (09:08)
--- NOTE | 2020-02-18 09:18 | PCM.PN ---
- General Info Date of Service: 02/18/20 Subjective Update: Mr. Skelton continues to show evidence of significant alcohol withdrawal and delirium, sedated and lethargic. EGD yesterday did show evidence of diffuse gastritis as well as esophageal varices. Hemoglobin has remained stable over the last 24 hours with no further evidence of active bleeding. Because of sedation Mr. Skelton is unable to provide meaningful history concerning symptoms or review of systems. - Patient Data Vitals - Most Recent: Last Vital Signs Temp 98.6 F 02/18/20 04:00 Pulse 116 H 02/17/20 17:40 Resp 22 H 02/18/20 06:00 BP 119/70 02/18/20 06:00 Pulse Ox 96 02/18/20 06:00 Weight - Most Recent: 150 lb 6.4 oz I&O - Last 24 Hours: Intake & Output 02/17/20 02/18/20 02/18/20 22:59 06:59 14:59 Intake Total 2209 2285 Balance 2209 2285 Lab Results Last 24 Hours: Laboratory Results - last 24 hr 02/17/20 02/17/20 02/17/20 Range/Units 11:00 17:10 23:00 WBC (4.5-11.0) K/uL RBC (4.30-5.90) M/uL Hgb 8.1 L 7.7 L 8.2 L (12.0-15.0) g/dL Hct (40.0-54.0) % MCV (80-98) fL MCH (27-31) pg MCHC (32-36) % Plt Count (150-400) K/uL Neut % (Auto) (36-66) % Lymph % (Auto) (24-44) % Giles % (Auto) (2-6) % Eos % (Auto) (2-4) % Baso % (Auto) (0-1) % PT (9.5-12.0) sec INR (0.80-1.20) Sodium (140-148) mmol/L Potassium (3.6-5.2) mmol/L Chloride (100-108) mmol/L Carbon Dioxide (21-32) mmol/L Anion Gap (5.0-14.0) mmol/L BUN (7-18) mg/dL Creatinine (0.8-1.3) mg/dL Est Cr Clr Drug Dosing mL/min Estimated GFR (MDRD) (>60) Glucose (74-106) mg/dL Calcium (8.5-10.1) mg/dL Total Bilirubin (0.2-1.0) mg/dL AST (15-37) U/L ALT (12-78) U/L Alkaline Phosphatase (46-116) U/L Total Protein (6.4-8.2) g/dL Albumin (3.4-5.0) g/dL Globulin (2.3-3.5) g/dL Albumin/Globulin Ratio (1.2-2.2) Lipase (73-393) U/L 02/18/20 02/18/20 02/18/20 Range/Units 06:03 06:03 06:03 WBC 7.0 (4.5-11.0) K/uL RBC 2.53 L (4.30-5.90) M/uL Hgb 8.1 L (12.0-15.0) g/dL Hct 25.1 L (40.0-54.0) % MCV 99 H (80-98) fL MCH 32 H (27-31) pg MCHC 32 (32-36) % Plt Count 57 L (150-400) K/uL Neut % (Auto) 58 (36-66) % Lymph % (Auto) 19 L (24-44) % Giles % (Auto) 18 H (2-6) % Eos % (Auto) 3 (2-4) % Baso % (Auto) 2 H (0-1) % PT 13.0 H (9.5-12.0) sec INR 1.22 H (0.80-1.20) Sodium 142 (140-148) mmol/L Potassium 3.5 L (3.6-5.2) mmol/L Chloride 108 (100-108) mmol/L Carbon Dioxide 27 (21-32) mmol/L Anion Gap 10.5 (5.0-14.0) mmol/L BUN 12 (7-18) mg/dL Creatinine 0.7 L (0.8-1.3) mg/dL Est Cr Clr Drug Dosing 139.11 mL/min Estimated GFR (MDRD) > 60 (>60) Glucose 84 (74-106) mg/dL Calcium 7.5 L (8.5-10.1) mg/dL Total Bilirubin 5.6 H (0.2-1.0) mg/dL AST 115 H (15-37) U/L ALT 29 (12-78) U/L Alkaline Phosphatase 173 H (46-116) U/L Total Protein 5.5 L (6.4-8.2) g/dL Albumin 2.4 L (3.4-5.0) g/dL Globulin 3.1 (2.3-3.5) g/dL Albumin/Globulin Ratio 0.8 L (1.2-2.2) Lipase 231 (73-393) U/L Oleg Results Last 24 Hours: Microbiology 02/17/20 09:40 CLOtest - Final Stomach NEGATIVE CLOTEST REFERENCE RANGE: NEGATIVE Med Orders - Current: Current Medications Albuterol (Ventolin Hfa) 0 gm INH Q4H PRN PRN Reason: Shortness of Breath Folic Acid (Folic Acid) 1 mg PO DAILY [facility] Last Admin: 02/18/20 08:48 Dose: 1 mg Gabapentin (Neurontin) 200 mg PO Q8H [facility] Stop: 02/22/20 06:01 Lorazepam (Ativan) 0 mg IV ASDIRECTED [facility]; Protocol Last Admin: 02/18/20 05:53 Dose: 2 mg Lorazepam (Ativan) 0 mg PO ASDIRECTED [facility]; Protocol Last Admin: 02/17/20 11:11 Dose: 2 mg Ondansetron HCl (Zofran) 4 mg IV Q4H PRN PRN Reason: Nausea/Vomiting Pantoprazole Sodium (Protonix Iv) 40 mg IVPUSH Q12H [facility] Sodium Chloride (Saline Flush) 10 ml FLUSH ASDIRECTED PRN PRN Reason: Keep Vein Open Thiamine HCl (Vitamin B-1) 100 mg PO DAILY [facility] Last Admin: 02/18/20 08:49 Dose: 100 mg Discontinued Medications Fentanyl (Sublimaze) Confirm Administered Dose 100 mcg .ROUTE .STK-MED ONE Stop: 02/17/20 07:24 Gabapentin (Neurontin) 400 mg PO Q8H [facility] Stop: 02/20/20 06:01 Last Admin: 02/18/20 05:19 Dose: 400 mg Sodium Chloride (Normal Saline) 1,000 mls @ 500 mls/hr IV ASDIRECTED [facility] Last Admin: 02/16/20 10:34 Dose: 500 mls/hr Octreotide Acetate 500 mcg/ (Sodium Chloride) 500 mls @ 50 mls/hr IV Q10H [facility] Last Admin: 02/18/20 02:33 Dose: 50 mcg/hr, 50 mls/hr Pantoprazole Sodium 80 mg/ (Sodium Chloride) 100 mls @ 10 mls/hr IV .Q10H [facility] Last Admin: 02/18/20 02:31 Dose: 10 mls/hr Phytonadione 5 mg/ Sodium (Chloride) 50.5 mls @ 100 mls/hr IV NOW ONE Stop: 02/16/20 11:30 Last Admin: 02/16/20 11:34 Dose: 100 mls/hr Multivitamins/Minerals 10 ml/Thiamine HCl 100 mg/ Folic Acid 1 mg/ Magnesium Sulfate 2 gm/ Sodium Chloride 1,015.2 mls @ 100 mls/hr IV ONETIME ONE Stop: 02/16/20 23:09 Last Admin: 02/16/20 13:21 Dose: 100 mls/hr Sodium Chloride (Normal Saline) 1,000 mls @ 125 mls/hr IV ASDIRECTED [facility] Last Admin: 02/18/20 05:33 Dose: 125 mls/hr Midazolam HCl (Versed 1 Mg/Ml) Confirm Administered Dose 2 mg .ROUTE .STK-MED ONE Stop: 02/17/20 07:24 Octreotide Acetate (Sandostatin) 50 mcg IVPUSH ONETIME ONE Stop: 02/16/20 10:40 Last Admin: 02/16/20 10:51 Dose: 50 mcg Pantoprazole Sodium (Protonix Iv) 80 mg IVPUSH .BOLUS [facility] Last Admin: 02/16/20 10:35 Dose: 80 mg Potassium Chloride (Klor-Con M20) 40 meq PO ONETIME ONE Stop: 02/18/20 08:16 Propofol (Diprivan 20 Ml) Confirm Administered Dose 200 mg .ROUTE .STK-MED ONE Stop: 02/17/20 07:24 - Exam General: Sedated, Lethargic Lungs: Clear to Auscultation, Normal Respiratory Effort Cardiovascular: Regular Rate, Regular Rhythm, No Murmurs GI/Abdominal Exam: Soft, Non-Tender, No Organomegaly, No Distention Extremities: Non-Tender, No Pedal Edema Sepsis Event Note - Evaluation Sepsis Screening Result: No Definite Risk - Focused Exam Vital Signs: Vital Signs Temp Resp BP Pulse Ox 02/18/20 06:00 22 H 119/70 96 02/18/20 04:00 98.6 F 16 116/69 100 02/18/20 02:00 20 120/54 L 93 L 02/18/20 00:00 98.9 F 18 123/61 98 02/17/20 22:00 20 130/67 98 Date Exam was Performed: 02/18/20 Time Exam was Performed: 09:13 - Problem List Review Problem List Initiated/Reviewed/Updated: Yes - My Orders Last 24 Hours: My Active Orders 02/18/20 09:09 Convert IV to Saline Lock [OM.PC] Routine 02/18/20 09:15 Pantoprazole [ProTONIX IV] 40 mg IVPUSH Q12H 02/18/20 14:00 Gabapentin [Neurontin] 200 mg PO Q8H 02/18/20 17:00 HGB [HEMOGLOBIN] [HEME] Stat 02/19/20 05:00 CBC WITH AUTO DIFF [HEME] Timed COMPREHENSIVE METABOLIC PN,CMP [CHEM] Timed INR,PT,PROTHROMBIN TIME [COAG] Timed - Plan Plan:: ASSESSMENT AND PLAN UPPER GI BLEED-when stable, no evidence of further bleeding. EGD did show diffuse gastritis assumed to be the source of recent bleeding, he was also noted to have esophageal varices. -Saline lock IV -Maintain 2 IV sites -2 units of red blood cells on hold -Full liquid diet -Protonix 40 mg IV every 12 hours -Discontinue octreotide continuous infusion -Serial hemoglobin levels -Monitor in ICU -Surgical follow-up per Dr. Cintron ACUTE BLOOD LOSS ANEMIA-secondary to upper GI bleed -Management as above ALCOHOL ABUSE-evidence of alcohol withdrawal managed per protocol -Alcohol withdrawal protocol -Banana bag -Scheduled gabapentin per protocol, because of lethargy will decrease dose to 200 mg every 8 hours -Oral folic acid and thiamine -Discussed treatment options, if patient interested ACUTE ALCOHOLIC HEPATITIS CHRONIC PANCREATITIS-elevation in lipase level 2 times normal. HISTORY OF AORTIC DISSECTION WITH CVA-status post surgical repair MAINTENANCE ISSUES -DVT prophylaxis; not indicated -GI prophylaxis; Protonix as above -Monroe catheter; not indicated -Nutrition; n.p.o. -Nicotine dependence; not required CODE STATUS-FULL CODE ADMISSION STATUS-patient will be admitted to inpatient status, expect at least a 2 night hospital stay for evaluation and management of problems as outlined above. At the time of this admission I do not reasonably expected evaluation and management of this problem will require more than a 96 hour hospital stay. DISPOSITION-anticipate discharge to home after the hospital stay. PRIMARY CARE PROVIDER-
[2020-02-18] MEDS: Pantoprazole 40 MG Vial IVPUSH SCH ×2 (10:03→21:41)
[2020-02-18] MEDS: Dimethicone 20%/Zinc Oxide 25% 56 GM Spray Bottle TOP PRN (12:05)
[2020-02-18] MEDS: Gabapentin 100 MG Cap PO SCH ×2 (14:24→21:40)
[2020-02-19] MEDS ORDERED: Potassium Chloride 20 MEQ Tab.ER PO ONE ×2 (05:42→12:00)
[2020-02-19] MEDS: Gabapentin 100 MG Cap PO SCH (06:11)
[2020-02-19] MEDS ORDERED: Potassium Chloride Riders 40 MEQ in Premix Bag 1 BAG IV ONE ×2 (07:07→16:00)
--- NOTE | 2020-02-19 07:13 | PCM.PN ---
- General Info Date of Service: 02/19/20 Subjective Update: Mr. Nafisa white sedated and lethargic with ongoing alcohol withdrawal delirium. Intake has been poor and will plan to restart IV fluids today, he will be n.p.o. until he is more alert. Able to provide a meaningful history concerning symptoms or review of systems because of his delirium and lethargy. - Patient Data Vitals - Most Recent: Last Vital Signs Temp 98.3 F 02/19/20 04:00 Pulse 97 02/18/20 20:00 Resp 29 H 02/19/20 06:00 BP 116/60 02/19/20 06:00 Pulse Ox 98 02/19/20 06:00 Weight - Most Recent: 152 lb 9.6 oz I&O - Last 24 Hours: Intake & Output 02/18/20 02/19/20 02/19/20 22:59 06:59 14:59 Intake Total 569 50 Balance 569 50 Lab Results Last 24 Hours: Laboratory Results - last 24 hr 02/18/20 02/19/20 02/19/20 Range/Units 17:05 04:50 04:50 WBC 6.3 (4.5-11.0) K/uL RBC 2.54 L (4.30-5.90) M/uL Hgb 8.9 L 8.1 L (12.0-15.0) g/dL Hct 25.3 L (40.0-54.0) % MCV 100 H (80-98) fL MCH 32 H (27-31) pg MCHC 32 (32-36) % Plt Count 71 L (150-400) K/uL Add Manual Diff Yes Neutrophils % (Manual) 61 (36-66) % Lymphocytes % (Manual) 20 L (24-44) % Monocytes % (Manual) 14 H (2-6) % Eosinophils % (Manual) 2 (2-4) % Blast Cells % 1 % Anisocytosis Moderate H Spherocytes Few H Target Cells Moderate H PT 14.0 H (9.5-12.0) sec INR 1.32 H (0.80-1.20) Sodium (140-148) mmol/L Potassium (3.6-5.2) mmol/L Chloride (100-108) mmol/L Carbon Dioxide (21-32) mmol/L Anion Gap (5.0-14.0) mmol/L BUN (7-18) mg/dL Creatinine (0.8-1.3) mg/dL Est Cr Clr Drug Dosing mL/min Estimated GFR (MDRD) (>60) Glucose (74-106) mg/dL Calcium (8.5-10.1) mg/dL Total Bilirubin (0.2-1.0) mg/dL AST (15-37) U/L ALT (12-78) U/L Alkaline Phosphatase (46-116) U/L Total Protein (6.4-8.2) g/dL Albumin (3.4-5.0) g/dL Globulin (2.3-3.5) g/dL Albumin/Globulin Ratio (1.2-2.2) 02/19/20 Range/Units 04:50 WBC (4.5-11.0) K/uL RBC (4.30-5.90) M/uL Hgb (12.0-15.0) g/dL Hct (40.0-54.0) % MCV (80-98) fL MCH (27-31) pg MCHC (32-36) % Plt Count (150-400) K/uL Add Manual Diff Neutrophils % (Manual) (36-66) % Lymphocytes % (Manual) (24-44) % Monocytes % (Manual) (2-6) % Eosinophils % (Manual) (2-4) % Blast Cells % % Anisocytosis Spherocytes Target Cells PT (9.5-12.0) sec INR (0.80-1.20) Sodium 141 (140-148) mmol/L Potassium 3.3 L (3.6-5.2) mmol/L Chloride 108 (100-108) mmol/L Carbon Dioxide 25 (21-32) mmol/L Anion Gap 11.3 (5.0-14.0) mmol/L BUN 9 (7-18) mg/dL Creatinine 0.7 L (0.8-1.3) mg/dL Est Cr Clr Drug Dosing 139.11 mL/min Estimated GFR (MDRD) > 60 (>60) Glucose 96 (74-106) mg/dL Calcium 7.6 L (8.5-10.1) mg/dL Total Bilirubin 6.1 H (0.2-1.0) mg/dL AST 95 H (15-37) U/L ALT 30 (12-78) U/L Alkaline Phosphatase 181 H (46-116) U/L Total Protein 5.4 L (6.4-8.2) g/dL Albumin 2.3 L (3.4-5.0) g/dL Globulin 3.1 (2.3-3.5) g/dL Albumin/Globulin Ratio 0.7 L (1.2-2.2) Oleg Results Last 24 Hours: Microbiology 02/17/20 09:40 CLOtest - Final Stomach NEGATIVE CLOTEST REFERENCE RANGE: NEGATIVE Med Orders - Current: Current Medications Albuterol (Ventolin Hfa) 0 gm INH Q4H PRN PRN Reason: Shortness of Breath Dimethicone/Zinc Oxide (Rash Relief-Zinc Oxide [place]) 0 gm TOP ASDIRECTED PRN PRN Reason: Rash Last Admin: 02/18/20 12:05 Dose: 1 spray Folic Acid (Folic Acid) 1 mg PO DAILY [facility] Last Admin: 02/18/20 08:48 Dose: 1 mg Sodium Chloride (Normal Saline) 1,000 mls @ 125 mls/hr IV ASDIRECTED [facility] Potassium Chloride 40 meq/ (Premix) 100 mls @ 25 mls/hr IV ONETIME ONE Stop: 02/19/20 11:06 Potassium Chloride 40 meq/ (Premix) 100 mls @ 25 mls/hr IV ONETIME ONE Stop: 02/19/20 19:59 Lorazepam (Ativan) 0 mg IV ASDIRECTED [facility]; Protocol Last Admin: 02/18/20 20:38 Dose: 2 mg Lorazepam (Ativan) 0 mg PO ASDIRECTED [facility]; Protocol Last Admin: 02/17/20 11:11 Dose: 2 mg Ondansetron HCl (Zofran) 4 mg IV Q4H PRN PRN Reason: Nausea/Vomiting Pantoprazole Sodium (Protonix Iv) 40 mg IVPUSH Q12H [facility] Last Admin: 02/18/20 21:41 Dose: 40 mg Sodium Chloride (Saline Flush) 10 ml FLUSH ASDIRECTED PRN PRN Reason: Keep Vein Open Thiamine HCl (Vitamin B-1) 100 mg PO DAILY [facility] Last Admin: 02/18/20 08:49 Dose: 100 mg Discontinued Medications Fentanyl (Sublimaze) Confirm Administered Dose 100 mcg .ROUTE .STK-MED ONE Stop: 02/17/20 07:24 Gabapentin (Neurontin) 400 mg PO Q8H [facility] Stop: 02/20/20 06:01 Last Admin: 02/18/20 05:19 Dose: 400 mg Gabapentin (Neurontin) 200 mg PO Q8H [facility] Stop: 02/22/20 06:01 Last Admin: 02/19/20 06:11 Dose: 200 mg Sodium Chloride (Normal Saline) 1,000 mls @ 500 mls/hr IV ASDIRECTED [facility] Last Admin: 02/16/20 10:34 Dose: 500 mls/hr Octreotide Acetate 500 mcg/ (Sodium Chloride) 500 mls @ 50 mls/hr IV Q10H [facility] Last Admin: 02/18/20 02:33 Dose: 50 mcg/hr, 50 mls/hr Pantoprazole Sodium 80 mg/ (Sodium Chloride) 100 mls @ 10 mls/hr IV .Q10H [facility] Last Admin: 02/18/20 02:31 Dose: 10 mls/hr Phytonadione 5 mg/ Sodium (Chloride) 50.5 mls @ 100 mls/hr IV NOW ONE Stop: 02/16/20 11:30 Last Admin: 02/16/20 11:34 Dose: 100 mls/hr Multivitamins/Minerals 10 ml/Thiamine HCl 100 mg/ Folic Acid 1 mg/ Magnesium Sulfate 2 gm/ Sodium Chloride 1,015.2 mls @ 100 mls/hr IV ONETIME ONE Stop: 02/16/20 23:09 Last Admin: 02/16/20 13:21 Dose: 100 mls/hr Sodium Chloride (Normal Saline) 1,000 mls @ 125 mls/hr IV ASDIRECTED [facility] Last Admin: 02/18/20 05:33 Dose: 125 mls/hr Midazolam HCl (Versed 1 Mg/Ml) Confirm Administered Dose 2 mg .ROUTE .STK-MED ONE Stop: 02/17/20 07:24 Octreotide Acetate (Sandostatin) 50 mcg IVPUSH ONETIME ONE Stop: 02/16/20 10:40 Last Admin: 02/16/20 10:51 Dose: 50 mcg Pantoprazole Sodium (Protonix Iv) 80 mg IVPUSH .BOLUS [facility] Last Admin: 02/16/20 10:35 Dose: 80 mg Potassium Chloride (Klor-Con M20) 40 meq PO ONETIME ONE Stop: 02/18/20 08:16 Last Admin: 02/18/20 10:03 Dose: 40 meq Potassium Chloride (Klor-Con M20) 40 meq PO ONETIME ONE Stop: 02/19/20 05:43 Last Admin: 02/19/20 06:13 Dose: 40 meq Potassium Chloride (Klor-Con M20) 40 meq PO ONETIME ONE Stop: 02/19/20 12:01 Propofol (Diprivan 20 Ml) Confirm Administered Dose 200 mg .ROUTE .STK-MED ONE Stop: 02/17/20 07:24 - Exam Quality Assessment: DVT Prophylaxis General: Sedated, Lethargic Lungs: Clear to Auscultation, Normal Respiratory Effort Cardiovascular: Regular Rate, Regular Rhythm, No Murmurs GI/Abdominal Exam: Soft, Non-Tender, No Organomegaly Extremities: Non-Tender, No Pedal Edema Sepsis Event Note - Evaluation Sepsis Screening Result: No Definite Risk - Focused Exam Vital Signs: Vital Signs Temp Pulse Resp BP Pulse Ox 02/19/20 06:00 29 H 116/60 98 02/19/20 04:00 98.3 F 26 H 102/59 L 96 02/19/20 02:00 33 H 121/69 97 02/19/20 00:00 98.1 F 28 H 126/73 95 02/18/20 22:00 26 H 119/74 98 02/18/20 20:00 99.3 F 97 32 H 133/73 97 Date Exam was Performed: 02/19/20 Time Exam was Performed: 07:09 - Problem List Review Problem List Initiated/Reviewed/Updated: Yes - My Orders Last 24 Hours: My Active Orders 02/18/20 09:09 Convert IV to Saline Lock [OM.PC] Routine 02/18/20 10:00 Pantoprazole [ProTONIX IV] 40 mg IVPUSH Q12H 02/18/20 13:42 Dimethicone/Zinc Oxide [Rash Relief-Zinc Oxide [place]] 0 gm TOP ASDIRECTED PRN 02/19/20 07:07 Potassium Chloride Riders [KCL 40 MEQ in Water 100 ML] 40 meq Premix Bag 1 bag IV ONETIME 02/19/20 07:15 Sodium Chloride 0.9% @ 125 MLS/HR (1000ml) Sodium Chloride 0.9% [Normal Saline] 1,000 ml IV ASDIRECTED 02/19/20 16:00 Potassium Chloride Riders [KCL 40 MEQ in Water 100 ML] 40 meq Premix Bag 1 bag IV ONETIME 02/19/20 Breakfast Nothing per Oral Now Diet [DIET] 02/20/20 05:00 CBC WITH AUTO DIFF [HEME] Timed COMPREHENSIVE METABOLIC PN,CMP [CHEM] Timed INR,PT,PROTHROMBIN TIME [COAG] Timed - Plan Plan:: ASSESSMENT AND PLAN UPPER GI BLEED-stable with no evidence of active bleeding -Maintain 2 IV sites -2 units of red blood cells on hold -N.p.o. -Protonix 40 mg IV every 12 hours, till able to safely take oral medications -Recheck hemoglobin in a.m. -Monitor in ICU -Surgical follow-up per Dr. Cintron ACUTE BLOOD LOSS ANEMIA-secondary to upper GI bleed -Management as above ALCOHOL ABUSE-evidence of alcohol withdrawal managed per protocol -Alcohol withdrawal protocol -Discontinue gabapentin because of sedation -Oral folic acid and thiamine -Discuss alcohol treatment options, if patient interested ACUTE ALCOHOLIC HEPATITIS-bilirubin increased from admission MDF of 15 CHRONIC PANCREATITIS HISTORY OF AORTIC DISSECTION WITH CVA-status post surgical repair MAINTENANCE ISSUES -DVT prophylaxis; not indicated -GI prophylaxis; Protonix as above -Mon[place] catheter; not indicated -Nutrition; n.p.o. -Nicotine dependence; not required CODE STATUS-FULL CODE ADMISSION STATUS-patient will be admitted to inpatient status, expect at least a 2 night hospital stay for evaluation and management of problems as outlined above. At the time of this admission I do not reasonably expected evaluation and management of this problem will require more than a 96 hour hospital stay. DISPOSITION-anticipate discharge to home after the hospital stay. PRIMARY CARE PROVIDER-
[2020-02-19] MEDS: Sodium Chloride 0.9% 1,000 ML IV SCH ×3 (08:20→23:47)
[2020-02-19] MEDS: Potassium Chloride 20 MEQ, Lidocaine 1% 2 ML in Sodium Chloride 0.9% 100 ML IV SCH ×4 (08:38→17:46)
[2020-02-19] MEDS: Folic Acid 1 MG Tab PO SCH (08:46)
[2020-02-19] MEDS: Thiamine 100 MG Tab PO SCH (08:46)
[2020-02-19] MEDS: LORazepam 2 MG/ML SDV IV SCH ×8 (09:00→20:12)
[2020-02-19] MEDS: Pantoprazole 40 MG Vial IVPUSH SCH ×2 (09:05→23:20)
[2020-02-19] MEDS: Loperamide 2 MG Cap PO PRN ×2 (18:57→19:50)
[2020-02-20] MEDS: Sodium Chloride 0.9% 1,000 ML IV SCH (07:50)
--- NOTE | 2020-02-20 09:30 | PCM.PN ---
- General Info Date of Service: 02/20/20 Subjective Update: No acute events overnight. He did receive several doses of lorazepam yesterday but none overnight. More alert and interactive but still very lethargic and difficult to understand. Bilirubin is slightly better today. Blood pressure is normal but he is still mildly tachycardic. He does not complain of abdominal pain or nausea. He does complain of pain in the scrotum following significant diarrhea and irritation to the scrotum. Functional Status: Reports: Pain Controlled - Review of Systems General: Denies: Fever Neurological: Reports: Confusion - Patient Data Vitals - Most Recent: Last Vital Signs Temp 36.7 C 02/20/20 04:00 Pulse 97 02/19/20 17:30 Resp 20 02/20/20 06:00 BP 124/73 02/20/20 06:00 Pulse Ox 99 02/20/20 06:00 Weight - Most Recent: 67.721 kg I&O - Last 24 Hours: Intake & Output 02/19/20 02/20/20 02/20/20 22:59 06:59 14:59 Intake Total 1217 1535 Balance 1217 1535 Lab Results Last 24 Hours: Laboratory Results - last 24 hr 02/16/20 02/20/20 02/20/20 Range/Units 09:55 04:45 04:45 WBC 5.7 (4.5-11.0) K/uL RBC 2.45 L (4.30-5.90) M/uL Hgb 8.0 L (12.0-15.0) g/dL Hct 24.9 L (40.0-54.0) % MCV 102 H (80-98) fL MCH 33 H (27-31) pg MCHC 32 (32-36) % Plt Count 84 L (150-400) K/uL Neut % (Auto) 41 (36-66) % Lymph % (Auto) 24 (24-44) % [place] % (Auto) 28 H (2-6) % Eos % (Auto) 4 (2-4) % Baso % (Auto) 3 H (0-1) % PT 14.4 H (9.5-12.0) sec INR 1.36 H (0.80-1.20) Sodium (140-148) mmol/L Potassium (3.6-5.2) mmol/L Chloride (100-108) mmol/L Carbon Dioxide (21-32) mmol/L Anion Gap (5.0-14.0) mmol/L BUN (7-18) mg/dL Creatinine (0.8-1.3) mg/dL Est Cr Clr Drug Dosing mL/min Estimated GFR (MDRD) (>60) Glucose (74-106) mg/dL Calcium (8.5-10.1) mg/dL Total Bilirubin (0.2-1.0) mg/dL AST (15-37) U/L ALT (12-78) U/L Alkaline Phosphatase (46-116) U/L Total Protein (6.4-8.2) g/dL Albumin (3.4-5.0) g/dL Globulin (2.3-3.5) g/dL Albumin/Globulin Ratio (1.2-2.2) Crossmatch See Detail 02/20/20 Range/Units 04:45 WBC (4.5-11.0) K/uL RBC (4.30-5.90) M/uL Hgb (12.0-15.0) g/dL Hct (40.0-54.0) % MCV (80-98) fL MCH (27-31) pg MCHC (32-36) % Plt Count (150-400) K/uL Neut % (Auto) (36-66) % Lymph % (Auto) (24-44) % [place] % (Auto) (2-6) % Eos % (Auto) (2-4) % Baso % (Auto) (0-1) % PT (9.5-12.0) sec INR (0.80-1.20) Sodium 142 (140-148) mmol/L Potassium 3.7 (3.6-5.2) mmol/L Chloride 111 H (100-108) mmol/L Carbon Dioxide 23 (21-32) mmol/L Anion Gap 11.7 (5.0-14.0) mmol/L BUN 6 L (7-18) mg/dL Creatinine 0.7 L (0.8-1.3) mg/dL Est Cr Clr Drug Dosing 139.11 mL/min Estimated GFR (MDRD) > 60 (>60) Glucose 92 (74-106) mg/dL Calcium 7.5 L (8.5-10.1) mg/dL Total Bilirubin 5.3 H (0.2-1.0) mg/dL AST 73 H (15-37) U/L ALT 29 (12-78) U/L Alkaline Phosphatase 172 H (46-116) U/L Total Protein 5.2 L (6.4-8.2) g/dL Albumin 2.2 L (3.4-5.0) g/dL Globulin 3.0 (2.3-3.5) g/dL Albumin/Globulin Ratio 0.7 L (1.2-2.2) Crossmatch Oleg Results Last 24 Hours: Microbiology 02/19/20 12:44 Clostridioides difficile (PCR) - Final Stool / Feces Med Orders - Current: Current Medications Albuterol (Ventolin Hfa) 0 gm INH Q4H PRN PRN Reason: Shortness of Breath Dimethicone/Zinc Oxide (Rash Relief-Zinc Oxide [place]) 0 gm TOP ASDIRECTED PRN PRN Reason: Rash Last Admin: 02/18/20 12:05 Dose: 1 spray Folic Acid (Folic Acid) 1 mg PO DAILY [facility] Last Admin: 02/19/20 08:46 Dose: 1 mg Loperamide HCl (Imodium) 2 mg PO Q4H PRN PRN Reason: Diarrhea Last Admin: 02/19/20 19:50 Dose: 2 mg Lorazepam (Ativan) 0 mg IV ASDIRECTED [facility]; Protocol Last Admin: 02/19/20 20:12 Dose: 2 mg Lorazepam (Ativan) 0 mg PO ASDIRECTED [facility]; Protocol Last Admin: 02/17/20 11:11 Dose: 2 mg Ondansetron HCl (Zofran) 4 mg IV Q4H PRN PRN Reason: Nausea/Vomiting Pantoprazole Sodium (Protonix Iv) 40 mg IVPUSH Q12H [facility] Last Admin: 02/19/20 23:20 Dose: 40 mg Sodium Chloride (Saline Flush) 10 ml FLUSH ASDIRECTED PRN PRN Reason: Keep Vein Open Thiamine HCl (Vitamin B-1) 100 mg PO DAILY [facility] Last Admin: 02/19/20 08:46 Dose: 100 mg Discontinued Medications Fentanyl (Sublimaze) Confirm Administered Dose 100 mcg .ROUTE .STK-MED ONE Stop: 02/17/20 07:24 Gabapentin (Neurontin) 400 mg PO Q8H [facility] Stop: 02/20/20 06:01 Last Admin: 02/18/20 05:19 Dose: 400 mg Gabapentin (Neurontin) 200 mg PO Q8H [facility] Stop: 02/22/20 06:01 Last Admin: 02/19/20 06:11 Dose: 200 mg Sodium Chloride (Normal Saline) 1,000 mls @ 500 mls/hr IV ASDIRECTED [facility] Last Admin: 02/16/20 10:34 Dose: 500 mls/hr Octreotide Acetate 500 mcg/ (Sodium Chloride) 500 mls @ 50 mls/hr IV Q10H [facility] Last Admin: 02/18/20 02:33 Dose: 50 mcg/hr, 50 mls/hr Pantoprazole Sodium 80 mg/ (Sodium Chloride) 100 mls @ 10 mls/hr IV .Q10H [facility] Last Admin: 02/18/20 02:31 Dose: 10 mls/hr Phytonadione 5 mg/ Sodium (Chloride) 50.5 mls @ 100 mls/hr IV NOW ONE Stop: 02/16/20 11:30 Last Admin: 02/16/20 11:34 Dose: 100 mls/hr Multivitamins/Minerals 10 ml/Thiamine HCl 100 mg/ Folic Acid 1 mg/ Magnesium Sulfate 2 gm/ Sodium Chloride 1,015.2 mls @ 100 mls/hr IV ONETIME ONE Stop: 02/16/20 23:09 Last Admin: 02/16/20 13:21 Dose: 100 mls/hr Sodium Chloride (Normal Saline) 1,000 mls @ 125 mls/hr IV ASDIRECTED [facility] Last Admin: 02/18/20 05:33 Dose: 125 mls/hr Sodium Chloride (Normal Saline) 1,000 mls @ 125 mls/hr IV ASDIRECTED [facility] Last Admin: 02/20/20 07:50 Dose: 125 mls/hr Potassium Chloride 20 meq/Lidocaine HCl 2 ml/ Sodium Chloride 112 mls @ 56 mls/ hr IV Q2H [facility] Stop: 02/19/20 12:29 Last Admin: 02/19/20 11:02 Dose: 56 mls/hr Potassium Chloride 20 meq/Lidocaine HCl 2 ml/ Sodium Chloride 112 mls @ 56 mls/ hr IV Q2H [facility] Stop: 02/19/20 20:29 Last Admin: 02/19/20 17:46 Dose: 56 mls/hr Midazolam HCl (Versed 1 Mg/Ml) Confirm Administered Dose 2 mg .ROUTE .STK-MED ONE Stop: 02/17/20 07:24 Octreotide Acetate (Sandostatin) 50 mcg IVPUSH ONETIME ONE Stop: 02/16/20 10:40 Last Admin: 02/16/20 10:51 Dose: 50 mcg Pantoprazole Sodium (Protonix Iv) 80 mg IVPUSH .BOLUS [facility] Last Admin: 02/16/20 10:35 Dose: 80 mg Potassium Chloride (Klor-Con M20) 40 meq PO ONETIME ONE Stop: 02/18/20 08:16 Last Admin: 02/18/20 10:03 Dose: 40 meq Potassium Chloride (Klor-Con M20) 40 meq PO ONETIME ONE Stop: 02/19/20 05:43 Last Admin: 02/19/20 06:13 Dose: 40 meq Potassium Chloride (Klor-Con M20) 40 meq PO ONETIME ONE Stop: 02/19/20 12:01 Propofol (Diprivan 20 Ml) Confirm Administered Dose 200 mg .ROUTE .STK-MED ONE Stop: 02/17/20 07:24 - Exam Quality Assessment: No: Supplemental Oxygen General: Alert, Cooperative, No Acute Distress, Lethargic. No: Oriented HEENT: Pupils Equal Lungs: Clear to Auscultation, Normal Respiratory Effort Cardiovascular: Regular Rhythm, Tachycardia GI/Abdominal Exam: Soft, Non-Tender, Distended Extremities: No Pedal Edema. No: Increased Warmth Skin: Warm, Dry Psy/Mental Status: Alert. No: Agitated Sepsis Event Note - Evaluation Sepsis Screening Result: No Definite Risk - Focused Exam Vital Signs: Vital Signs Temp Resp BP Pulse Ox 02/20/20 06:00 20 124/73 99 02/20/20 04:00 36.7 C 17 106/76 98 02/20/20 02:00 20 115/65 97 02/20/20 00:00 36.9 C 25 H 111/59 L 96 02/19/20 22:00 29 H 115/75 99 Date Exam was Performed: 02/20/20 Time Exam was Performed: 15:40 - Problem List Review Problem List Initiated/Reviewed/Updated: Yes - My Orders Last 24 Hours: My Active Orders 02/20/20 09:30 Dextrose 5%-1/2 Normal Saline with KCl 20 mEq @ 75 mL/Hr (1000 mL) D5 1/2 NS w / 20 mEq/L KCl 1,000 ml IV ASDIRECTED 02/21/20 05:00 BASIC METABOLIC PANEL,BMP [CHEM] Timed CBC W/O DIFF,HEMOGRAM [HEME] Timed (1) - Plan Plan:: ASSESSMENT AND PLAN UPPER GI BLEED-stable with no evidence of active bleeding. EGD showed gastritis. -Maintain 2 IV sites -2 units of red blood cells on hold -N.p.o. until he is more alert -Protonix 40 mg IV every 12 hours, till able to safely take oral medications -Recheck hemoglobin in a.m. ACUTE BLOOD LOSS ANEMIA-secondary to upper GI bleed. Hemoglobin stable. -Management as above ALCOHOL ABUSE-evidence of hypoactive alcohol withdrawal with delirium managed per protocol. Seems to be slowly getting better. -Alcohol withdrawal protocol -Discontinue gabapentin because of sedation -Oral folic acid and thiamine -Discuss alcohol treatment options once he is more alert and interactive ACUTE ALCOHOLIC HEPATITIS-bilirubin slightly better today. -Repeat labs in the morning CHRONIC PANCREATITIS HISTORY OF AORTIC DISSECTION WITH CVA-status post surgical repair MAINTENANCE ISSUES -DVT prophylaxis; not indicated -GI prophylaxis; Protonix as above -[place] catheter; not indicated -Nutrition; n.p.o. until more alert DISPOSITION-anticipate discharge to home after the hospital stay. Arturo Abdul MD
[2020-02-20] MEDS: Pantoprazole 40 MG Vial IVPUSH SCH ×2 (11:00→22:02)
[2020-02-20] MEDS: LORazepam 1 MG Tab PO SCH ×6 (11:25→22:35)
[2020-02-20] MEDS: Thiamine 100 MG Tab PO SCH (11:36)
[2020-02-20] MEDS: Folic Acid 1 MG Tab PO SCH (11:36)
[2020-02-20] MEDS: D5 1/2 NS w/ 20 mEq/L KCl 1,000 ML IV SCH (11:54)
[2020-02-20] MEDS: Loperamide 2 MG Cap PO PRN (13:34)
[2020-02-21] MEDS: D5 1/2 NS w/ 20 mEq/L KCl 1,000 ML IV SCH ×2 (01:01→14:14)
[2020-02-21] MEDS: Thiamine 100 MG Tab PO SCH (13:47)
[2020-02-21] MEDS: Folic Acid 1 MG Tab PO SCH (13:47)
--- NOTE | 2020-02-21 14:11 | PCM.PN ---
- General Info Date of Service: 02/21/20 Subjective Update: There were no acute events overnight. Patient did not sleep very well but did eventually fall asleep this morning and slept for several hours. He is still fairly somnolent but appears a little better today. He has required minimal medications to help with alcohol withdrawal but is still quite hypoactive. No complaints of abdominal pain or nausea. Still mildly tachycardic but overall heart rate has been improving. No hematemesis or melena and hemoglobin is slightly better today. Functional Status: Reports: Pain Controlled - Review of Systems General: Reports: Weakness - Patient Data Vitals - Most Recent: Last Vital Signs Temp 36.9 C 02/21/20 12:00 Pulse 80 02/21/20 12:00 Resp 20 02/21/20 12:00 BP 145/76 H 02/21/20 12:00 Pulse Ox 98 02/21/20 13:11 Weight - Most Recent: 67.721 kg I&O - Last 24 Hours: Intake & Output 02/20/20 02/21/20 02/21/20 22:59 06:59 14:59 Intake Total 200 889 Balance 200 889 Lab Results Last 24 Hours: Laboratory Results - last 24 hr 02/16/20 02/21/20 02/21/20 Range/Units 09:55 06:01 06:01 WBC 5.8 (4.5-11.0) K/uL RBC 2.59 L (4.30-5.90) M/uL Hgb 8.5 L (12.0-15.0) g/dL Hct 26.0 L (40.0-54.0) % MCV 100 H (80-98) fL MCH 33 H (27-31) pg MCHC 33 (32-36) % Plt Count 123 L (150-400) K/uL Sodium 138 L (140-148) mmol/L Potassium 3.7 (3.6-5.2) mmol/L Chloride 107 (100-108) mmol/L Carbon Dioxide 22 (21-32) mmol/L Anion Gap 12.7 (5.0-14.0) mmol/L BUN 4 L (7-18) mg/dL Creatinine 0.7 L (0.8-1.3) mg/dL Est Cr Clr Drug Dosing 139.11 mL/min Estimated GFR (MDRD) > 60 (>60) Glucose 109 H (74-106) mg/dL Calcium 7.7 L (8.5-10.1) mg/dL Crossmatch See Detail Med Orders - Current: Current Medications Albuterol (Ventolin Hfa) 0 gm INH Q4H PRN PRN Reason: Shortness of Breath Dimethicone/Zinc Oxide (Rash Relief-Zinc Oxide [facility]) 0 gm TOP ASDIRECTED PRN PRN Reason: Rash Last Admin: 02/18/20 12:05 Dose: 1 spray Folic Acid (Folic Acid) 1 mg PO DAILY [facility] Last Admin: 02/20/20 11:36 Dose: Not Given Potassium Chloride/Dextrose/Sod Cl (D5 1/2 Ns W/ 20 Meq/L Kcl) 1,000 mls @ 75 mls/hr IV ASDIRECTED [facility] Last Admin: 02/21/20 01:01 Dose: 75 mls/hr Loperamide HCl (Imodium) 2 mg PO Q4H PRN PRN Reason: Diarrhea Last Admin: 02/20/20 13:34 Dose: 2 mg Lorazepam (Ativan) 0 mg IV ASDIRECTED [facility]; Protocol Last Admin: 02/19/20 20:12 Dose: 2 mg Lorazepam (Ativan) 0 mg PO ASDIRECTED [facility]; Protocol Last Admin: 02/20/20 22:35 Dose: 2 mg Ondansetron HCl (Zofran) 4 mg IV Q4H PRN PRN Reason: Nausea/Vomiting Pantoprazole Sodium (Protonix) 40 mg PO BIDAC [facility] Sodium Chloride (Saline Flush) 10 ml FLUSH ASDIRECTED PRN PRN Reason: Keep Vein Open Thiamine HCl (Vitamin B-1) 100 mg PO DAILY [facility] Last Admin: 02/20/20 11:36 Dose: Not Given Discontinued Medications Fentanyl (Sublimaze) Confirm Administered Dose 100 mcg .ROUTE .STK-MED ONE Stop: 02/17/20 07:24 Gabapentin (Neurontin) 400 mg PO Q8H [facility] Stop: 02/20/20 06:01 Last Admin: 02/18/20 05:19 Dose: 400 mg Gabapentin (Neurontin) 200 mg PO Q8H [facility] Stop: 02/22/20 06:01 Last Admin: 02/19/20 06:11 Dose: 200 mg Sodium Chloride (Normal Saline) 1,000 mls @ 500 mls/hr IV ASDIRECTED [facility] Last Admin: 02/16/20 10:34 Dose: 500 mls/hr Octreotide Acetate 500 mcg/ (Sodium Chloride) 500 mls @ 50 mls/hr IV Q10H [facility] Last Admin: 02/18/20 02:33 Dose: 50 mcg/hr, 50 mls/hr Pantoprazole Sodium 80 mg/ (Sodium Chloride) 100 mls @ 10 mls/hr IV .Q10H [facility] Last Admin: 02/18/20 02:31 Dose: 10 mls/hr Phytonadione 5 mg/ Sodium (Chloride) 50.5 mls @ 100 mls/hr IV NOW ONE Stop: 02/16/20 11:30 Last Admin: 02/16/20 11:34 Dose: 100 mls/hr Multivitamins/Minerals 10 ml/Thiamine HCl 100 mg/ Folic Acid 1 mg/ Magnesium Sulfate 2 gm/ Sodium Chloride 1,015.2 mls @ 100 mls/hr IV ONETIME ONE Stop: 02/16/20 23:09 Last Admin: 02/16/20 13:21 Dose: 100 mls/hr Sodium Chloride (Normal Saline) 1,000 mls @ 125 mls/hr IV ASDIRECTED [facility] Last Admin: 02/18/20 05:33 Dose: 125 mls/hr Sodium Chloride (Normal Saline) 1,000 mls @ 125 mls/hr IV ASDIRECTED [facility] Last Admin: 02/20/20 07:50 Dose: 125 mls/hr Potassium Chloride 20 meq/Lidocaine HCl 2 ml/ Sodium Chloride 112 mls @ 56 mls/ hr IV Q2H [facility] Stop: 02/19/20 12:29 Last Admin: 02/19/20 11:02 Dose: 56 mls/hr Potassium Chloride 20 meq/Lidocaine HCl 2 ml/ Sodium Chloride 112 mls @ 56 mls/ hr IV Q2H [facility] Stop: 02/19/20 20:29 Last Admin: 02/19/20 17:46 Dose: 56 mls/hr Midazolam HCl (Versed 1 Mg/Ml) Confirm Administered Dose 2 mg .ROUTE .STK-MED ONE Stop: 02/17/20 07:24 Octreotide Acetate (Sandostatin) 50 mcg IVPUSH ONETIME ONE Stop: 02/16/20 10:40 Last Admin: 02/16/20 10:51 Dose: 50 mcg Pantoprazole Sodium (Protonix Iv) 80 mg IVPUSH .BOLUS [facility] Last Admin: 02/16/20 10:35 Dose: 80 mg Pantoprazole Sodium (Protonix Iv) 40 mg IVPUSH Q12H [facility] Last Admin: 02/20/20 22:02 Dose: 40 mg Potassium Chloride (Klor-Con M20) 40 meq PO ONETIME ONE Stop: 02/18/20 08:16 Last Admin: 02/18/20 10:03 Dose: 40 meq Potassium Chloride (Klor-Con M20) 40 meq PO ONETIME ONE Stop: 02/19/20 05:43 Last Admin: 02/19/20 06:13 Dose: 40 meq Potassium Chloride (Klor-Con M20) 40 meq PO ONETIME ONE Stop: 02/19/20 12:01 Propofol (Diprivan 20 Ml) Confirm Administered Dose 200 mg .ROUTE .STK-MED ONE Stop: 02/17/20 07:24 - Exam Quality Assessment: No: Supplemental Oxygen General: Alert, Cooperative, No Acute Distress, Lethargic HEENT: Pupils Equal Lungs: Normal Respiratory Effort Cardiovascular: Regular Rhythm, Tachycardia GI/Abdominal Exam: Soft, No Distention Extremities: No Pedal Edema Skin: Warm, Dry Psy/Mental Status: Alert. No: Agitated Sepsis Event Note - Evaluation Sepsis Screening Result: No Definite Risk - Focused Exam Vital Signs: Vital Signs Temp Pulse Resp BP Pulse Ox 02/21/20 13:11 98 02/21/20 12:00 36.9 C 80 20 145/76 H 92 L 02/21/20 10:00 82 27 H 140/76 97 02/21/20 08:00 81 29 H 143/76 H 97 02/21/20 06:00 113 H 25 H 153/79 H 99 02/21/20 04:00 80 24 H 138/87 98 Date Exam was Performed: 02/21/20 Time Exam was Performed: 14:08 - Problem List Review Problem List Initiated/Reviewed/Updated: Yes - My Orders Last 24 Hours: My Active Orders 02/20/20 13:57 Communication Order [RC] ROUTINE 02/20/20 14:31 Incentive Spirometry [RT Incentive Spirometry] [RC] Q1HWA 02/20/20 Dinner Mechanical Soft Diet [DIET] 06/02/20 16:30 Pantoprazole [ProTONIX] 40 mg PO BIDAC 02/22/20 05:00 CBC W/O DIFF,HEMOGRAM [HEME] Timed (1) COMPREHENSIVE METABOLIC PN,CMP [CHEM] Timed INR,PT,PROTHROMBIN TIME [COAG] Timed - Plan Plan:: ASSESSMENT AND PLAN UPPER GI BLEED-stable with no evidence of active bleeding. EGD showed gastritis. Hemoglobin slightly better today. -Maintain 2 IV sites -2 units of red blood cells on hold -Protonix 40 mg twice daily with meals -Recheck hemoglobin in a.m. ACUTE BLOOD LOSS ANEMIA-secondary to upper GI bleed. Hemoglobin slightly improved. -Management as above ALCOHOL ABUSE-evidence of hypoactive alcohol withdrawal with delirium managed per protocol. Seems to be slowly getting better but still quite lethargic. -Alcohol withdrawal protocol -Discontinue gabapentin because of sedation -Oral folic acid and thiamine -Discuss alcohol treatment options once he is more alert and interactive ACUTE ALCOHOLIC HEPATITIS-bilirubin slightly better 2 days ago. -Repeat liver labs in the morning CHRONIC PANCREATITIS-no pain. 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 Residual right-sided deficits. MAINTENANCE ISSUES -DVT prophylaxis; mechanical -GI prophylaxis; Protonix as above -[place] catheter; not indicated -Nutrition; mechanical soft DISPOSITION-anticipate discharge to home versus rehab after the hospital stay. Arturo Abdul MD
[2020-02-21] MEDS: Loperamide 2 MG Cap PO PRN (14:14)
[2020-02-21] MEDS: LORazepam 1 MG Tab PO SCH (16:08)
[2020-02-21] MEDS: Pantoprazole 40 MG Tab.CR PO SCH (16:08)
[2020-02-21] MEDS: LORazepam 2 MG/ML SDV IV SCH ×4 (16:41→23:20)
[2020-02-22] MEDS: LORazepam 2 MG/ML SDV IV SCH ×14 (00:46→23:50)
[2020-02-22] MEDS: D5 1/2 NS w/ 20 mEq/L KCl 1,000 ML IV SCH ×2 (04:15→21:24)
[2020-02-22] MEDS: Pantoprazole 40 MG Vial IVPUSH SCH (08:03)
[2020-02-22] MEDS: Thiamine 100 MG Tab PO SCH (08:54)
[2020-02-22] MEDS: Pantoprazole 40 MG Tab.CR PO SCH ×2 (08:54→15:30)
[2020-02-22] MEDS: Folic Acid 1 MG Tab PO SCH (08:54)
--- NOTE | 2020-02-22 09:52 | PCM.PN ---
- General Info Date of Service: 02/22/20 Subjective Update: No acute events overnight. He is still quite lethargic and unable to provide much usable history. He has required several doses of lorazepam to help with agitation and tachycardia. Still very somnolent this morning and not much better than yesterday. He is moving around a little bit more and his strength seems to be improving. Vital signs are stable other than mild tachycardia. Bilirubin is better. Hemoglobin is better. No evidence for bleeding. Functional Status: Reports: Pain Controlled - Review of Systems General: Reports: Weakness Neurological: Reports: Confusion - Patient Data Vitals - Most Recent: Last Vital Signs Temp 35.5 C L 02/22/20 07:00 Pulse 110 H 02/22/20 09:00 Resp 20 02/22/20 09:00 BP 111/67 02/22/20 09:00 Pulse Ox 98 02/22/20 09:00 Weight - Most Recent: 73.527 kg I&O - Last 24 Hours: Intake & Output 02/21/20 02/22/20 02/22/20 22:59 06:59 14:59 Intake Total 841 865 Balance 841 865 Lab Results Last 24 Hours: Laboratory Results - last 24 hr 02/22/20 02/22/20 02/22/20 Range/Units 05:57 05:57 05:57 WBC 7.6 (4.5-11.0) K/uL RBC 2.79 L (4.30-5.90) M/uL Hgb 9.1 L (12.0-15.0) g/dL Hct 27.9 L (40.0-54.0) % MCV 100 H (80-98) fL MCH 33 H (27-31) pg MCHC 33 (32-36) % Plt Count 146 L (150-400) K/uL PT 14.1 H (9.5-12.0) sec INR 1.33 H (0.80-1.20) Sodium 137 L (140-148) mmol/L Potassium 3.7 (3.6-5.2) mmol/L Chloride 106 (100-108) mmol/L Carbon Dioxide 23 (21-32) mmol/L Anion Gap 11.7 (5.0-14.0) mmol/L BUN 2 L (7-18) mg/dL Creatinine 0.8 (0.8-1.3) mg/dL Est Cr Clr Drug Dosing 121.72 mL/min Estimated GFR (MDRD) > 60 (>60) Glucose 97 (74-106) mg/dL Calcium 7.7 L (8.5-10.1) mg/dL Total Bilirubin 3.8 H (0.2-1.0) mg/dL AST 59 H (15-37) U/L ALT 32 (12-78) U/L Alkaline Phosphatase 179 H (46-116) U/L Total Protein 6.0 L (6.4-8.2) g/dL Albumin 2.3 L (3.4-5.0) g/dL Globulin 3.7 H (2.3-3.5) g/dL Albumin/Globulin Ratio 0.6 L (1.2-2.2) Med Orders - Current: Current Medications Albuterol (Ventolin Hfa) 0 gm INH Q4H PRN PRN Reason: Shortness of Breath Dimethicone/Zinc Oxide (Rash Relief-Zinc Oxide [place]) 0 gm TOP ASDIRECTED PRN PRN Reason: Rash Last Admin: 02/18/20 12:05 Dose: 1 spray Folic Acid (Folic Acid) 1 mg PO DAILY [facility] Last Admin: 02/22/20 08:54 Dose: 1 mg Potassium Chloride/Dextrose/Sod Cl (D5 1/2 Ns W/ 20 Meq/L Kcl) 1,000 mls @ 50 mls/hr IV ASDIRECTED [facility] Loperamide HCl (Imodium) 2 mg PO Q4H PRN PRN Reason: Diarrhea Last Admin: 02/21/20 14:14 Dose: 2 mg Lorazepam (Ativan) 0 mg IV ASDIRECTED [facility]; Protocol Last Admin: 02/22/20 09:15 Dose: 2 mg Lorazepam (Ativan) 0 mg PO ASDIRECTED [facility]; Protocol Last Admin: 02/21/20 16:08 Dose: 1 mg Ondansetron HCl (Zofran) 4 mg IV Q4H PRN PRN Reason: Nausea/Vomiting Pantoprazole Sodium (Protonix) 40 mg PO BIDAC [facility] Last Admin: 02/22/20 08:54 Dose: 40 mg Sodium Chloride (Saline Flush) 10 ml FLUSH ASDIRECTED PRN PRN Reason: Keep Vein Open Thiamine HCl (Vitamin B-1) 100 mg PO DAILY [facility] Last Admin: 02/22/20 08:54 Dose: 100 mg Discontinued Medications Fentanyl (Sublimaze) Confirm Administered Dose 100 mcg .ROUTE .STK-MED ONE Stop: 02/17/20 07:24 Gabapentin (Neurontin) 400 mg PO Q8H [facility] Stop: 02/20/20 06:01 Last Admin: 02/18/20 05:19 Dose: 400 mg Gabapentin (Neurontin) 200 mg PO Q8H [facility] Stop: 02/22/20 06:01 Last Admin: 02/19/20 06:11 Dose: 200 mg Sodium Chloride (Normal Saline) 1,000 mls @ 500 mls/hr IV ASDIRECTED [facility] Last Admin: 02/16/20 10:34 Dose: 500 mls/hr Octreotide Acetate 500 mcg/ (Sodium Chloride) 500 mls @ 50 mls/hr IV Q10H [facility] Last Admin: 02/18/20 02:33 Dose: 50 mcg/hr, 50 mls/hr Pantoprazole Sodium 80 mg/ (Sodium Chloride) 100 mls @ 10 mls/hr IV .Q10H [facility] Last Admin: 02/18/20 02:31 Dose: 10 mls/hr Phytonadione 5 mg/ Sodium (Chloride) 50.5 mls @ 100 mls/hr IV NOW ONE Stop: 02/16/20 11:30 Last Admin: 02/16/20 11:34 Dose: 100 mls/hr Multivitamins/Minerals 10 ml/Thiamine HCl 100 mg/ Folic Acid 1 mg/ Magnesium Sulfate 2 gm/ Sodium Chloride 1,015.2 mls @ 100 mls/hr IV ONETIME ONE Stop: 02/16/20 23:09 Last Admin: 02/16/20 13:21 Dose: 100 mls/hr Sodium Chloride (Normal Saline) 1,000 mls @ 125 mls/hr IV ASDIRECTED [facility] Last Admin: 02/18/20 05:33 Dose: 125 mls/hr Sodium Chloride (Normal Saline) 1,000 mls @ 125 mls/hr IV ASDIRECTED [facility] Last Admin: 02/20/20 07:50 Dose: 125 mls/hr Potassium Chloride 20 meq/Lidocaine HCl 2 ml/ Sodium Chloride 112 mls @ 56 mls/ hr IV Q2H [facility] Stop: 02/19/20 12:29 Last Admin: 02/19/20 11:02 Dose: 56 mls/hr Potassium Chloride 20 meq/Lidocaine HCl 2 ml/ Sodium Chloride 112 mls @ 56 mls/ hr IV Q2H [facility] Stop: 02/19/20 20:29 Last Admin: 02/19/20 17:46 Dose: 56 mls/hr Potassium Chloride/Dextrose/Sod Cl (D5 1/2 Ns W/ 20 Meq/L Kcl) 1,000 mls @ 75 mls/hr IV ASDIRECTED [facility] Last Admin: 02/22/20 04:15 Dose: 75 mls/hr Midazolam HCl (Versed 1 Mg/Ml) Confirm Administered Dose 2 mg .ROUTE .STK-MED ONE Stop: 02/17/20 07:24 Octreotide Acetate (Sandostatin) 50 mcg IVPUSH ONETIME ONE Stop: 02/16/20 10:40 Last Admin: 02/16/20 10:51 Dose: 50 mcg Pantoprazole Sodium (Protonix Iv) 80 mg IVPUSH .BOLUS [facility] Last Admin: 02/16/20 10:35 Dose: 80 mg Pantoprazole Sodium (Protonix Iv) 40 mg IVPUSH Q12H [facility] Last Admin: 02/22/20 08:03 Dose: Not Given Potassium Chloride (Klor-Con M20) 40 meq PO ONETIME ONE Stop: 02/18/20 08:16 Last Admin: 02/18/20 10:03 Dose: 40 meq Potassium Chloride (Klor-Con M20) 40 meq PO ONETIME ONE Stop: 02/19/20 05:43 Last Admin: 02/19/20 06:13 Dose: 40 meq Potassium Chloride (Klor-Con M20) 40 meq PO ONETIME ONE Stop: 02/19/20 12:01 Propofol (Diprivan 20 Ml) Confirm Administered Dose 200 mg .ROUTE .STK-MED ONE Stop: 02/17/20 07:24 - Exam Quality Assessment: No: Supplemental Oxygen General: Alert, Cooperative, No Acute Distress, Lethargic HEENT: Pupils Equal Lungs: Clear to Auscultation, Normal Respiratory Effort Cardiovascular: Regular Rhythm, Tachycardia GI/Abdominal Exam: Soft, Non-Tender, Distended Extremities: No Pedal Edema, Other (mild swelling left arm ). No: Increased Warmth Skin: Warm, Dry Psy/Mental Status: Alert. No: Agitated Sepsis Event Note - Evaluation Sepsis Screening Result: No Definite Risk - Focused Exam Vital Signs: Vital Signs Temp Pulse Resp BP Pulse Ox 02/22/20 09:00 110 H 20 111/67 98 02/22/20 07:00 35.5 C L 116 H 20 115/70 100 02/22/20 04:00 37.6 C 112 H 26 H 115/63 02/22/20 02:00 102 H 26 H 111/61 97 02/22/20 00:00 37.4 C 122 H 22 H 133/72 98 02/21/20 22:00 111 H 26 H 131/73 99 Date Exam was Performed: 02/22/20 Time Exam was Performed: 14:14 - Problem List Review Problem List Initiated/Reviewed/Updated: Yes - My Orders Last 24 Hours: My Active Orders 02/21/20 14:11 Antiembolic Devices [RC] .Routine SCD [Sequential Compression Device] [OM.PC] Routine 02/21/20 16:30 Pantoprazole [ProTONIX] 40 mg PO BIDAC 02/22/20 08:45 OT Evaluation and Treatment [CONS] Routine PT Evaluation and Treatment [CONS] Routine 02/22/20 09:50 D5 1/2 NS w/ 20 mEq/L KCl 1,000 ml IV ASDIRECTED 02/22/20 09:51 Head wo Cont [CT] Routine 02/23/20 05:00 BASIC METABOLIC PANEL,BMP [CHEM] Timed CBC W/O DIFF,HEMOGRAM [HEME] Timed (1) MAGNESIUM [CHEM] Timed - Plan Plan:: ASSESSMENT AND PLAN ALCOHOL WITHDRAWAL DELIRIUM-evidence of hypoactive alcohol withdrawal with delirium managed per protocol. Still quite lethargic and not dramatically better than yesterday. Head CT did not show any acute pathology. Labs are normal. Vital signs are stable with no fevers. -Alcohol withdrawal protocol -Discontinued gabapentin because of sedation -Supplement thiamine and folate -Discuss alcohol treatment options once he is more alert and interactive UPPER GI BLEED-stable with no evidence of active bleeding. EGD showed gastritis. Hemoglobin slightly better again today. -Maintain 2 IV sites -2 units of red blood cells on hold -Protonix 40 mg twice daily with meals -Recheck hemoglobin in a.m. ACUTE BLOOD LOSS ANEMIA-secondary to upper GI bleed. Hemoglobin stable and improving. -Management as above ACUTE ALCOHOLIC HEPATITIS-bilirubin has improved further in the past 48 hours. -Repeat liver labs on Thursday CHRONIC PANCREATITIS-no pain. 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 Residual right-sided deficits. MAINTENANCE ISSUES -DVT prophylaxis; mechanical -GI prophylaxis; Protonix as above -[place] catheter; not indicated -Nutrition; mechanical soft DISPOSITION-anticipate discharge to home versus rehab after the hospital stay. Arturo Abdul MD
--- NOTE | 2020-02-22 11:09 | CT ---
Head wo Cont CLINICAL HISTORY: Hypoactive delirium COMPARISON: 2017 TECHNIQUE: Transverse scans were obtained from the base of the skull through the vertex without IV contrast on a multislice, multidetector CT scanner. Auto dosage reduction and iterative reconstruction techniques employed. FINDINGS: There is moderate encephalomalacia involving the left temporal lobe as well as the frontoparietal junction region and left basal ganglia. This is consistent with old MCA infarct seen on the bony 17 CT. There is no mass effect, hemorrhage, or extraaxial collection. The basal cisterns and sulci over the convexities are prominent. The ventricles are asymmetric due to some ex vacuo dilatation of the left lateral ventricle.. IMPRESSION: Previous left MCA distribution infarct in 2017 Moderate atrophy No acute intracranial findings
[2020-02-23] MEDS: LORazepam 2 MG/ML SDV IV SCH ×5 (01:15→22:30)
[2020-02-23] MEDS: Pantoprazole 40 MG Tab.CR PO SCH ×2 (07:52→16:53)
[2020-02-23] MEDS: Folic Acid 1 MG Tab PO SCH (07:59)
[2020-02-23] MEDS: Thiamine 100 MG Tab PO SCH (08:00)
[2020-02-23] MEDS ORDERED: Potassium Chloride 20 MEQ Tab.ER PO ONE (09:00)
[2020-02-23] MEDS: Magnesium Sulfate/Water 2 GM in Premix Bag 1 BAG IV SCH ×3 (09:38→20:39)
--- NOTE | 2020-02-23 09:43 | PCM.PN ---
- General Info Date of Service: 02/23/20 Subjective Update: There were no acute events overnight. Patient has required several doses of lorazepam for agitation and apparent hallucinations. He is very somnolent this morning and unable to provide any history. When he is more awake and alert he still is quite lethargic and only minimal able to respond to questions. He has not had any fevers. His heart rate is slowly decreasing but remains borderline tachycardic. Potassium mildly low today. - Review of Systems General: Denies: Fever - Patient Data Vitals - Most Recent: Last Vital Signs Temp 36.8 C 02/23/20 08:00 Pulse 96 02/23/20 08:00 Resp 25 H 02/23/20 08:00 BP 111/64 02/23/20 08:00 Pulse Ox 99 02/23/20 08:00 Weight - Most Recent: 73.527 kg I&O - Last 24 Hours: Intake & Output 02/22/20 02/23/20 02/23/20 22:59 06:59 14:59 Intake Total 866 625 Balance 866 625 Lab Results Last 24 Hours: Laboratory Results - last 24 hr 02/23/20 02/23/20 Range/Units 06:01 06:01 WBC 6.3 (4.5-11.0) K/uL RBC 2.75 L (4.30-5.90) M/uL Hgb 9.1 L (12.0-15.0) g/dL Hct 27.8 L (40.0-54.0) % MCV 101 H (80-98) fL MCH 33 H (27-31) pg MCHC 33 (32-36) % Plt Count 154 (150-400) K/uL Sodium 138 L (140-148) mmol/L Potassium 3.5 L (3.6-5.2) mmol/L Chloride 106 (100-108) mmol/L Carbon Dioxide 23 (21-32) mmol/L Anion Gap 12.5 (5.0-14.0) mmol/L BUN 3 L (7-18) mg/dL Creatinine 0.8 (0.8-1.3) mg/dL Est Cr Clr Drug Dosing 121.72 mL/min Estimated GFR (MDRD) > 60 (>60) Glucose 97 (74-106) mg/dL Calcium 7.8 L (8.5-10.1) mg/dL Magnesium 1.4 L D (1.8-2.4) mg/dL Med Orders - Current: Current Medications Albuterol (Ventolin Hfa) 0 gm INH Q4H PRN PRN Reason: Shortness of Breath Dimethicone/Zinc Oxide (Rash Relief-Zinc Oxide [place]) 0 gm TOP ASDIRECTED PRN PRN Reason: Rash Last Admin: 02/18/20 12:05 Dose: 1 spray Divalproex Sodium (Divalproex Sodium) 250 mg PO BIDMEALS [facility] Folic Acid (Folic Acid) 1 mg PO DAILY [facility] Last Admin: 02/23/20 07:59 Dose: 1 mg Potassium Chloride/Dextrose/Sod Cl (D5 1/2 Ns W/ 20 Meq/L Kcl) 1,000 mls @ 50 mls/hr IV ASDIRECTED [facility] Last Admin: 02/22/20 21:24 Dose: 50 mls/hr Magnesium Sulfate 2 gm/ Premix 50 mls @ 25 mls/hr IV Q6H [facility] Stop: 02/23/20 22:59 Last Admin: 02/23/20 09:38 Dose: 25 mls/hr Loperamide HCl (Imodium) 2 mg PO Q4H PRN PRN Reason: Diarrhea Last Admin: 02/21/20 14:14 Dose: 2 mg Lorazepam (Ativan) 0 mg IV ASDIRECTED [facility]; Protocol Last Admin: 02/23/20 07:06 Dose: 2 mg Lorazepam (Ativan) 0 mg PO ASDIRECTED [facility]; Protocol Last Admin: 02/21/20 16:08 Dose: 1 mg Ondansetron HCl (Zofran) 4 mg IV Q4H PRN PRN Reason: Nausea/Vomiting Pantoprazole Sodium (Protonix) 40 mg PO BIDAC [facility] Last Admin: 02/23/20 07:52 Dose: 40 mg Sodium Chloride (Saline Flush) 10 ml FLUSH ASDIRECTED PRN PRN Reason: Keep Vein Open Thiamine HCl (Vitamin B-1) 100 mg PO DAILY [facility] Last Admin: 02/23/20 08:00 Dose: 100 mg Discontinued Medications Fentanyl (Sublimaze) Confirm Administered Dose 100 mcg .ROUTE .STK-MED ONE Stop: 02/17/20 07:24 Gabapentin (Neurontin) 400 mg PO Q8H [facility] Stop: 02/20/20 06:01 Last Admin: 02/18/20 05:19 Dose: 400 mg Gabapentin (Neurontin) 200 mg PO Q8H [facility] Stop: 02/22/20 06:01 Last Admin: 02/19/20 06:11 Dose: 200 mg Sodium Chloride (Normal Saline) 1,000 mls @ 500 mls/hr IV ASDIRECTED [facility] Last Admin: 02/16/20 10:34 Dose: 500 mls/hr Octreotide Acetate 500 mcg/ (Sodium Chloride) 500 mls @ 50 mls/hr IV Q10H [facility] Last Admin: 02/18/20 02:33 Dose: 50 mcg/hr, 50 mls/hr Pantoprazole Sodium 80 mg/ (Sodium Chloride) 100 mls @ 10 mls/hr IV .Q10H [facility] Last Admin: 02/18/20 02:31 Dose: 10 mls/hr Phytonadione 5 mg/ Sodium (Chloride) 50.5 mls @ 100 mls/hr IV NOW ONE Stop: 02/16/20 11:30 Last Admin: 02/16/20 11:34 Dose: 100 mls/hr Multivitamins/Minerals 10 ml/Thiamine HCl 100 mg/ Folic Acid 1 mg/ Magnesium Sulfate 2 gm/ Sodium Chloride 1,015.2 mls @ 100 mls/hr IV ONETIME ONE Stop: 02/16/20 23:09 Last Admin: 02/16/20 13:21 Dose: 100 mls/hr Sodium Chloride (Normal Saline) 1,000 mls @ 125 mls/hr IV ASDIRECTED [facility] Last Admin: 02/18/20 05:33 Dose: 125 mls/hr Sodium Chloride (Normal Saline) 1,000 mls @ 125 mls/hr IV ASDIRECTED [facility] Last Admin: 02/20/20 07:50 Dose: 125 mls/hr Potassium Chloride 20 meq/Lidocaine HCl 2 ml/ Sodium Chloride 112 mls @ 56 mls/ hr IV Q2H [facility] Stop: 02/19/20 12:29 Last Admin: 02/19/20 11:02 Dose: 56 mls/hr Potassium Chloride 20 meq/Lidocaine HCl 2 ml/ Sodium Chloride 112 mls @ 56 mls/ hr IV Q2H [facility] Stop: 02/19/20 20:29 Last Admin: 02/19/20 17:46 Dose: 56 mls/hr Potassium Chloride/Dextrose/Sod Cl (D5 1/2 Ns W/ 20 Meq/L Kcl) 1,000 mls @ 75 mls/hr IV ASDIRECTED [facility] Last Admin: 02/22/20 04:15 Dose: 75 mls/hr Midazolam HCl (Versed 1 Mg/Ml) Confirm Administered Dose 2 mg .ROUTE .STK-MED ONE Stop: 02/17/20 07:24 Octreotide Acetate (Sandostatin) 50 mcg IVPUSH ONETIME ONE Stop: 02/16/20 10:40 Last Admin: 02/16/20 10:51 Dose: 50 mcg Pantoprazole Sodium (Protonix Iv) 80 mg IVPUSH .BOLUS [facility] Last Admin: 02/16/20 10:35 Dose: 80 mg Pantoprazole Sodium (Protonix Iv) 40 mg IVPUSH Q12H [facility] Last Admin: 02/22/20 08:03 Dose: Not Given Potassium Chloride (Klor-Con M20) 40 meq PO ONETIME ONE Stop: 02/18/20 08:16 Last Admin: 02/18/20 10:03 Dose: 40 meq Potassium Chloride (Klor-Con M20) 40 meq PO ONETIME ONE Stop: 02/19/20 05:43 Last Admin: 02/19/20 06:13 Dose: 40 meq Potassium Chloride (Klor-Con M20) 40 meq PO ONETIME ONE Stop: 02/19/20 12:01 Potassium Chloride (Klor-Con M20) 40 meq PO ONETIME ONE Stop: 02/23/20 09:01 Last Admin: 02/23/20 09:38 Dose: 40 meq Propofol (Diprivan 20 Ml) Confirm Administered Dose 200 mg .ROUTE .STK-MED ONE Stop: 02/17/20 07:24 - Exam Quality Assessment: No: Supplemental Oxygen General: No Acute Distress, Lethargic. No: Alert Lungs: Normal Respiratory Effort. No: Wheezing Cardiovascular: Regular Rate, Regular Rhythm GI/Abdominal Exam: Soft, No Distention Extremities: No Pedal Edema. No: Increased Warmth Skin: Warm, Dry Psy/Mental Status: No: Alert, Agitated Sepsis Event Note - Evaluation Sepsis Screening Result: No Definite Risk - Focused Exam Vital Signs: Vital Signs Temp Pulse Resp BP Pulse Ox 02/23/20 08:00 36.8 C 96 25 H 111/64 99 02/23/20 05:46 92 24 H 102/56 L 86 L 02/23/20 04:00 36.6 C 91 21 H 115/74 97 02/23/20 02:00 87 20 117/58 L 96 02/23/20 00:00 37.2 C 97 20 121/71 97 02/22/20 22:00 114 H 23 H 115/80 99 Date Exam was Performed: 02/23/20 Time Exam was Performed: 13:35 - Problem List Review Problem List Initiated/Reviewed/Updated: Yes - My Orders Last 24 Hours: My Active Orders 02/22/20 09:50 D5 1/2 NS w/ 20 mEq/L KCl 1,000 ml IV ASDIRECTED 02/23/20 09:00 Magnesium Sulfate/Water [Magnesium Sulfate in Water Premix] 2 gm Premix Bag 1 bag IV Q6H 02/23/20 10:00 Divalproex Sodium 250 mg PO BIDMEALS 02/24/20 05:00 COMPREHENSIVE METABOLIC PN,CMP [CHEM] Timed HGB [HEMOGLOBIN] [HEME] Timed - Plan Plan:: ASSESSMENT AND PLAN ALCOHOL WITHDRAWAL DELIRIUM-evidence of hypoactive alcohol withdrawal with delirium managed per protocol. Still quite lethargic and not much change in the past 72 hours. -Alcohol withdrawal protocol -Trial of Depakote as a mood stabilizer -Supplement thiamine and folate -Discuss alcohol treatment options once he is more alert and interactive UPPER GI BLEED-stable with no evidence of active bleeding. EGD showed gastritis. Hemoglobin slightly better the past few days. -Protonix 40 mg twice daily with meals -Recheck hemoglobin in a.m. ACUTE BLOOD LOSS ANEMIA-secondary to upper GI bleed. Hemoglobin stable and improving. -Management as above ACUTE ALCOHOLIC HEPATITIS-bilirubin has improved further in the past 48 hours. -Repeat liver labs tomorrow CHRONIC PANCREATITIS-no pain. 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 Residual right-sided deficits. -Physical therapy when he is more awake and alert MAINTENANCE ISSUES -DVT prophylaxis; mechanical -GI prophylaxis; Protonix as above -[place] catheter; not indicated -Nutrition; mechanical soft DISPOSITION-anticipate discharge to home versus rehab after the hospital stay. Arturo Abdul MD
[2020-02-23] MEDS: Divalproex Sodium Delayed-Release 250 MG Tab.CR PO SCH ×2 (10:15→17:37)
[2020-02-23] MEDS: D5 1/2 NS w/ 20 mEq/L KCl 1,000 ML IV SCH (16:53)
[2020-02-24] MEDS: LORazepam 2 MG/ML SDV IV SCH (03:14)
[2020-02-24] MEDS: Pantoprazole 40 MG Tab.CR PO SCH ×2 (08:06→17:12)
[2020-02-24] MEDS: Thiamine 100 MG Tab PO SCH (08:07)
[2020-02-24] MEDS: Divalproex Sodium Delayed-Release 250 MG Tab.CR PO SCH ×2 (08:07→17:12)
[2020-02-24] MEDS: Folic Acid 1 MG Tab PO SCH (08:07)
[2020-02-24] MEDS: D5 1/2 NS w/ 20 mEq/L KCl 1,000 ML IV SCH (12:05)
--- NOTE | 2020-02-24 14:46 | PCM.PN ---
- General Info Date of Service: 02/24/20 Subjective Update: No acute events overnight. Patient remains very lethargic but is a little bit more interactive today. He is able to tell me that he is not experiencing any pain or nausea. He does not have a headache. He was able to bear a small amount of weight when transferring from the bed to the chair today. His lorazepam requirement seem to be decreasing but he is not as alert and interactive as I would have hoped at this point. Still mildly tachycardic but no fevers or hypoxia. Hemoglobin slightly improved. Bilirubin slightly better today. - Patient Data Vitals - Most Recent: Last Vital Signs Temp 37 C 02/24/20 14:00 Pulse 91 02/24/20 06:00 Resp 19 02/24/20 14:00 BP 123/46 L 02/24/20 14:00 Pulse Ox 97 02/24/20 14:00 Weight - Most Recent: 73.527 kg I&O - Last 24 Hours: Intake & Output 02/23/20 02/24/20 02/24/20 22:59 06:59 14:59 Intake Total 742 601 Balance 742 601 Lab Results Last 24 Hours: Laboratory Results - last 24 hr 02/24/20 02/24/20 Range/Units 06:05 06:05 Hgb 9.2 L (12.0-15.0) g/dL Sodium 136 L (140-148) mmol/L Potassium 3.9 (3.6-5.2) mmol/L Chloride 106 (100-108) mmol/L Carbon Dioxide 23 (21-32) mmol/L Anion Gap 10.9 (5.0-14.0) mmol/L BUN 2 L (7-18) mg/dL Creatinine 0.8 (0.8-1.3) mg/dL Est Cr Clr Drug Dosing 121.72 mL/min Estimated GFR (MDRD) > 60 (>60) Glucose 99 (74-106) mg/dL Calcium 7.5 L (8.5-10.1) mg/dL Total Bilirubin 3.3 H (0.2-1.0) mg/dL AST 47 H (15-37) U/L ALT 27 (12-78) U/L Alkaline Phosphatase 160 H (46-116) U/L Total Protein 5.5 L (6.4-8.2) g/dL Albumin 2.2 L (3.4-5.0) g/dL Globulin 3.3 (2.3-3.5) g/dL Albumin/Globulin Ratio 0.7 L (1.2-2.2) Med Orders - Current: Current Medications Albuterol (Ventolin Hfa) 0 gm INH Q4H PRN PRN Reason: Shortness of Breath Dimethicone/Zinc Oxide (Rash Relief-Zinc Oxide [place]) 0 gm TOP ASDIRECTED PRN PRN Reason: Rash Last Admin: 02/18/20 12:05 Dose: 1 spray Divalproex Sodium (Divalproex Sodium) 250 mg PO BIDMEALS [facility] Last Admin: 02/24/20 08:07 Dose: 250 mg Folic Acid (Folic Acid) 1 mg PO DAILY [facility] Last Admin: 02/24/20 08:07 Dose: 1 mg Potassium Chloride/Dextrose/Sod Cl (D5 1/2 Ns W/ 20 Meq/L Kcl) 1,000 mls @ 50 mls/hr IV ASDIRECTED [facility] Last Admin: 02/24/20 12:05 Dose: 50 mls/hr Loperamide HCl (Imodium) 2 mg PO Q4H PRN PRN Reason: Diarrhea Last Admin: 02/21/20 14:14 Dose: 2 mg Lorazepam (Ativan) 0 mg IV ASDIRECTED [facility]; Protocol Last Admin: 02/24/20 03:14 Dose: 2 mg Lorazepam (Ativan) 0 mg PO ASDIRECTED [facility]; Protocol Last Admin: 02/21/20 16:08 Dose: 1 mg Ondansetron HCl (Zofran) 4 mg IV Q4H PRN PRN Reason: Nausea/Vomiting Pantoprazole Sodium (Protonix) 40 mg PO BIDAC [facility] Last Admin: 02/24/20 08:06 Dose: 40 mg Sodium Chloride (Saline Flush) 10 ml FLUSH ASDIRECTED PRN PRN Reason: Keep Vein Open Thiamine HCl (Vitamin B-1) 100 mg PO DAILY [facility] Last Admin: 02/24/20 08:07 Dose: 100 mg Discontinued Medications Fentanyl (Sublimaze) Confirm Administered Dose 100 mcg .ROUTE .STK-MED ONE Stop: 02/17/20 07:24 Gabapentin (Neurontin) 400 mg PO Q8H [facility] Stop: 02/20/20 06:01 Last Admin: 02/18/20 05:19 Dose: 400 mg Gabapentin (Neurontin) 200 mg PO Q8H [facility] Stop: 02/22/20 06:01 Last Admin: 02/19/20 06:11 Dose: 200 mg Sodium Chloride (Normal Saline) 1,000 mls @ 500 mls/hr IV ASDIRECTED [facility] Last Admin: 02/16/20 10:34 Dose: 500 mls/hr Octreotide Acetate 500 mcg/ (Sodium Chloride) 500 mls @ 50 mls/hr IV Q10H [facility] Last Admin: 02/18/20 02:33 Dose: 50 mcg/hr, 50 mls/hr Pantoprazole Sodium 80 mg/ (Sodium Chloride) 100 mls @ 10 mls/hr IV .Q10H [facility] Last Admin: 02/18/20 02:31 Dose: 10 mls/hr Phytonadione 5 mg/ Sodium (Chloride) 50.5 mls @ 100 mls/hr IV NOW ONE Stop: 02/16/20 11:30 Last Admin: 02/16/20 11:34 Dose: 100 mls/hr Multivitamins/Minerals 10 ml/Thiamine HCl 100 mg/ Folic Acid 1 mg/ Magnesium Sulfate 2 gm/ Sodium Chloride 1,015.2 mls @ 100 mls/hr IV ONETIME ONE Stop: 02/16/20 23:09 Last Admin: 02/16/20 13:21 Dose: 100 mls/hr Sodium Chloride (Normal Saline) 1,000 mls @ 125 mls/hr IV ASDIRECTED [facility] Last Admin: 02/18/20 05:33 Dose: 125 mls/hr Sodium Chloride (Normal Saline) 1,000 mls @ 125 mls/hr IV ASDIRECTED [facility] Last Admin: 02/20/20 07:50 Dose: 125 mls/hr Potassium Chloride 20 meq/Lidocaine HCl 2 ml/ Sodium Chloride 112 mls @ 56 mls/ hr IV Q2H [facility] Stop: 02/19/20 12:29 Last Admin: 02/19/20 11:02 Dose: 56 mls/hr Potassium Chloride 20 meq/Lidocaine HCl 2 ml/ Sodium Chloride 112 mls @ 56 mls/ hr IV Q2H [facility] Stop: 02/19/20 20:29 Last Admin: 02/19/20 17:46 Dose: 56 mls/hr Potassium Chloride/Dextrose/Sod Cl (D5 1/2 Ns W/ 20 Meq/L Kcl) 1,000 mls @ 75 mls/hr IV ASDIRECTED [facility] Last Admin: 02/22/20 04:15 Dose: 75 mls/hr Magnesium Sulfate 2 gm/ Premix 50 mls @ 25 mls/hr IV Q6H [facility] Stop: 02/23/20 22:59 Last Admin: 02/23/20 20:39 Dose: 25 mls/hr Midazolam HCl (Versed 1 Mg/Ml) Confirm Administered Dose 2 mg .ROUTE .STK-MED ONE Stop: 02/17/20 07:24 Octreotide Acetate (Sandostatin) 50 mcg IVPUSH ONETIME ONE Stop: 02/16/20 10:40 Last Admin: 02/16/20 10:51 Dose: 50 mcg Pantoprazole Sodium (Protonix Iv) 80 mg IVPUSH .BOLUS [facility] Last Admin: 02/16/20 10:35 Dose: 80 mg Pantoprazole Sodium (Protonix Iv) 40 mg IVPUSH Q12H [facility] Last Admin: 02/22/20 08:03 Dose: Not Given Potassium Chloride (Klor-Con M20) 40 meq PO ONETIME ONE Stop: 02/18/20 08:16 Last Admin: 02/18/20 10:03 Dose: 40 meq Potassium Chloride (Klor-Con M20) 40 meq PO ONETIME ONE Stop: 02/19/20 05:43 Last Admin: 02/19/20 06:13 Dose: 40 meq Potassium Chloride (Klor-Con M20) 40 meq PO ONETIME ONE Stop: 02/19/20 12:01 Potassium Chloride (Klor-Con M20) 40 meq PO ONETIME ONE Stop: 02/23/20 09:01 Last Admin: 02/23/20 09:38 Dose: 40 meq Propofol (Diprivan 20 Ml) Confirm Administered Dose 200 mg .ROUTE .STK-MED ONE Stop: 02/17/20 07:24 - Exam Quality Assessment: No: Supplemental Oxygen General: Alert, Cooperative, No Acute Distress, Lethargic. No: Oriented HEENT: Pupils Equal Lungs: Normal Respiratory Effort. No: Wheezing Cardiovascular: Regular Rhythm, Tachycardia GI/Abdominal Exam: Soft, No Distention Extremities: No Pedal Edema. No: Increased Warmth Skin: Warm, Dry Psy/Mental Status: Alert (But lethargic). No: Agitated Sepsis Event Note - Evaluation Sepsis Screening Result: No Definite Risk - Focused Exam Vital Signs: Vital Signs Temp Pulse Resp BP Pulse Ox 02/24/20 14:00 37 C 19 123/46 L 97 02/24/20 12:03 97 02/24/20 12:00 37 C 20 144/69 H 97 02/24/20 10:00 28 H 130/55 L 97 02/24/20 08:00 37.1 C 24 H 131/72 95 02/24/20 06:00 91 24 H 105/52 L 02/24/20 04:00 86 27 H 126/48 L 95 Date Exam was Performed: 02/24/20 Time Exam was Performed: 14:44 - Problem List Review Problem List Initiated/Reviewed/Updated: Yes - My Orders Last 24 Hours: My Active Orders 02/25/20 05:00 BASIC METABOLIC PANEL,BMP [CHEM] Timed HGB [HEMOGLOBIN] [HEME] Timed - Plan Plan:: ASSESSMENT AND PLAN ALCOHOL WITHDRAWAL DELIRIUM-evidence of hypoactive alcohol withdrawal with delirium managed per protocol. Still quite lethargic but seems a little better and is gaining a little strength. -Alcohol withdrawal protocol -Trial of Depakote as a mood stabilizer -Supplement thiamine and folate -Discuss alcohol treatment options once he is more alert and interactive UPPER GI BLEED-no ongoing bleeding. Hemoglobin slowly improving. -Protonix 40 mg twice daily with meals -Recheck hemoglobin in a.m. ACUTE BLOOD LOSS ANEMIA-secondary to upper GI bleed. Hemoglobin improving. -Management as above ACUTE ALCOHOLIC HEPATITIS-bilirubin has improved further in the past 48 hours. -Repeat liver labs tomorrow CHRONIC PANCREATITIS-no pain. 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 Residual right-sided deficits. -Physical therapy when he is more awake and alert MAINTENANCE ISSUES -DVT prophylaxis; mechanical -GI prophylaxis; Protonix as above -[place] catheter; not indicated -Nutrition; mechanical soft DISPOSITION-anticipate discharge to home versus rehab after the hospital stay. Arturo Abdul MD
[2020-02-25] MEDS: Pantoprazole 40 MG Delayed-Release Granules 1 Packet PO SCH ×2 (07:30→16:43)
[2020-02-25] MEDS: Divalproex Sodium Delayed-Release 125 MG Cap.Sprink PO SCH ×2 (07:30→16:43)
[2020-02-25] MEDS: Folic Acid 1 MG Tab PO SCH (08:20)
[2020-02-25] MEDS: Thiamine 100 MG Tab PO SCH (08:20)
[2020-02-25] MEDS: D5 1/2 NS w/ 20 mEq/L KCl 1,000 ML IV SCH (08:46)
--- NOTE | 2020-02-25 09:49 | PCM.PN ---
- General Info Date of Service: 02/25/20 Subjective Update: There were no acute events overnight. Patient is a little bit more alert and interactive today but still quite lethargic. He is moving better and moving all 4 extremities. He has not had any lorazepam since yesterday afternoon. Still tachycardic but this is pretty stable. Oral intake slightly better but still pretty limited. No fevers. Occasional loose cough. No complaints of abdominal pain or nausea. - Review of Systems General: Denies: Fever - Patient Data Vitals - Most Recent: Last Vital Signs Temp 37.1 C 02/25/20 07:00 Pulse 94 02/25/20 07:00 Resp 20 02/25/20 07:00 BP 119/57 L 02/25/20 07:00 Pulse Ox 95 02/25/20 07:18 Weight - Most Recent: 73.527 kg I&O - Last 24 Hours: Intake & Output 02/24/20 02/25/20 02/25/20 22:59 06:59 14:59 Intake Total 603 Balance 603 Lab Results Last 24 Hours: Laboratory Results - last 24 hr 02/25/20 02/25/20 Range/Units 04:15 04:15 Hgb 9.6 L (12.0-15.0) g/dL Sodium 137 L (140-148) mmol/L Potassium 4.5 (3.6-5.2) mmol/L Chloride 105 (100-108) mmol/L Carbon Dioxide 24 (21-32) mmol/L Anion Gap 12.5 (5.0-14.0) mmol/L BUN 2 L (7-18) mg/dL Creatinine 0.8 (0.8-1.3) mg/dL Est Cr Clr Drug Dosing 121.72 mL/min Estimated GFR (MDRD) > 60 (>60) Glucose 93 (74-106) mg/dL Calcium 7.8 L (8.5-10.1) mg/dL Med Orders - Current: Current Medications Albuterol (Ventolin Hfa) 0 gm INH Q4H PRN PRN Reason: Shortness of Breath Dimethicone/Zinc Oxide (Rash Relief-Zinc Oxide [place]) 0 gm TOP ASDIRECTED PRN PRN Reason: Rash Last Admin: 02/18/20 12:05 Dose: 1 spray Divalproex Sodium (Depakote Sprinkle) 250 mg PO BIDMEALS [facility] Last Admin: 02/25/20 07:30 Dose: 250 mg Folic Acid (Folic Acid) 1 mg PO DAILY [facility] Last Admin: 02/25/20 08:20 Dose: 1 mg Potassium Chloride/Dextrose/Sod Cl (D5 1/2 Ns W/ 20 Meq/L Kcl) 1,000 mls @ 50 mls/hr IV ASDIRECTED [facility] Last Admin: 02/25/20 08:46 Dose: 50 mls/hr Loperamide HCl (Imodium) 2 mg PO Q4H PRN PRN Reason: Diarrhea Last Admin: 02/21/20 14:14 Dose: 2 mg Lorazepam (Ativan) 0 mg IV ASDIRECTED [facility]; Protocol Last Admin: 02/24/20 03:14 Dose: 2 mg Lorazepam (Ativan) 0 mg PO ASDIRECTED [facility]; Protocol Last Admin: 02/21/20 16:08 Dose: 1 mg Ondansetron HCl (Zofran) 4 mg IV Q4H PRN PRN Reason: Nausea/Vomiting Pantoprazole Sodium (Protonix Granules) 40 mg PO BIDAC [facility] Last Admin: 02/25/20 07:30 Dose: 40 mg Sodium Chloride (Saline Flush) 10 ml FLUSH ASDIRECTED PRN PRN Reason: Keep Vein Open Thiamine HCl (Vitamin B-1) 100 mg PO DAILY [facility] Last Admin: 02/25/20 08:20 Dose: 100 mg Discontinued Medications Divalproex Sodium (Divalproex Sodium) 250 mg PO BIDMEALS [facility] Last Admin: 02/24/20 17:12 Dose: 250 mg Fentanyl (Sublimaze) Confirm Administered Dose 100 mcg .ROUTE .STK-MED ONE Stop: 02/17/20 07:24 Gabapentin (Neurontin) 400 mg PO Q8H [facility] Stop: 02/20/20 06:01 Last Admin: 02/18/20 05:19 Dose: 400 mg Gabapentin (Neurontin) 200 mg PO Q8H [facility] Stop: 02/22/20 06:01 Last Admin: 02/19/20 06:11 Dose: 200 mg Sodium Chloride (Normal Saline) 1,000 mls @ 500 mls/hr IV ASDIRECTED [facility] Last Admin: 02/16/20 10:34 Dose: 500 mls/hr Octreotide Acetate 500 mcg/ (Sodium Chloride) 500 mls @ 50 mls/hr IV Q10H [facility] Last Admin: 02/18/20 02:33 Dose: 50 mcg/hr, 50 mls/hr Pantoprazole Sodium 80 mg/ (Sodium Chloride) 100 mls @ 10 mls/hr IV .Q10H [facility] Last Admin: 02/18/20 02:31 Dose: 10 mls/hr Phytonadione 5 mg/ Sodium (Chloride) 50.5 mls @ 100 mls/hr IV NOW ONE Stop: 02/16/20 11:30 Last Admin: 02/16/20 11:34 Dose: 100 mls/hr Multivitamins/Minerals 10 ml/Thiamine HCl 100 mg/ Folic Acid 1 mg/ Magnesium Sulfate 2 gm/ Sodium Chloride 1,015.2 mls @ 100 mls/hr IV ONETIME ONE Stop: 02/16/20 23:09 Last Admin: 02/16/20 13:21 Dose: 100 mls/hr Sodium Chloride (Normal Saline) 1,000 mls @ 125 mls/hr IV ASDIRECTED [facility] Last Admin: 02/18/20 05:33 Dose: 125 mls/hr Sodium Chloride (Normal Saline) 1,000 mls @ 125 mls/hr IV ASDIRECTED [facility] Last Admin: 02/20/20 07:50 Dose: 125 mls/hr Potassium Chloride 20 meq/Lidocaine HCl 2 ml/ Sodium Chloride 112 mls @ 56 mls/ hr IV Q2H [facility] Stop: 02/19/20 12:29 Last Admin: 02/19/20 11:02 Dose: 56 mls/hr Potassium Chloride 20 meq/Lidocaine HCl 2 ml/ Sodium Chloride 112 mls @ 56 mls/ hr IV Q2H [facility] Stop: 02/19/20 20:29 Last Admin: 02/19/20 17:46 Dose: 56 mls/hr Potassium Chloride/Dextrose/Sod Cl (D5 1/2 Ns W/ 20 Meq/L Kcl) 1,000 mls @ 75 mls/hr IV ASDIRECTED [facility] Last Admin: 02/22/20 04:15 Dose: 75 mls/hr Magnesium Sulfate 2 gm/ Premix 50 mls @ 25 mls/hr IV Q6H [facility] Stop: 02/23/20 22:59 Last Admin: 02/23/20 20:39 Dose: 25 mls/hr Midazolam HCl (Versed 1 Mg/Ml) Confirm Administered Dose 2 mg .ROUTE .STK-MED ONE Stop: 02/17/20 07:24 Octreotide Acetate (Sandostatin) 50 mcg IVPUSH ONETIME ONE Stop: 02/16/20 10:40 Last Admin: 02/16/20 10:51 Dose: 50 mcg Pantoprazole Sodium (Protonix Iv) 80 mg IVPUSH .BOLUS [facility] Last Admin: 02/16/20 10:35 Dose: 80 mg Pantoprazole Sodium (Protonix Iv) 40 mg IVPUSH Q12H [facility] Last Admin: 02/22/20 08:03 Dose: Not Given Pantoprazole Sodium (Protonix) 40 mg PO BIDAC [facility] Last Admin: 02/24/20 17:12 Dose: 40 mg Potassium Chloride (Klor-Con M20) 40 meq PO ONETIME ONE Stop: 02/18/20 08:16 Last Admin: 02/18/20 10:03 Dose: 40 meq Potassium Chloride (Klor-Con M20) 40 meq PO ONETIME ONE Stop: 02/19/20 05:43 Last Admin: 02/19/20 06:13 Dose: 40 meq Potassium Chloride (Klor-Con M20) 40 meq PO ONETIME ONE Stop: 02/19/20 12:01 Potassium Chloride (Klor-Con M20) 40 meq PO ONETIME ONE Stop: 02/23/20 09:01 Last Admin: 02/23/20 09:38 Dose: 40 meq Propofol (Diprivan 20 Ml) Confirm Administered Dose 200 mg .ROUTE .STK-MED ONE Stop: 02/17/20 07:24 - Exam Quality Assessment: No: Supplemental Oxygen General: Alert, Cooperative, No Acute Distress, Lethargic. No: Oriented Neck: Supple Lungs: Clear to Auscultation, Normal Respiratory Effort Cardiovascular: Regular Rhythm, Tachycardia GI/Abdominal Exam: Normal Bowel Sounds, Soft, Non-Tender, No Distention Extremities: No Pedal Edema. No: Increased Warmth Skin: Warm, Dry Neurological: Other (tremor right hand ) Psy/Mental Status: Alert. No: Agitated Sepsis Event Note - Evaluation Sepsis Screening Result: No Definite Risk - Focused Exam Vital Signs: Vital Signs Temp Pulse Resp BP Pulse Ox 02/25/20 07:18 95 02/25/20 07:00 37.1 C 94 20 119/57 L 93 L 02/25/20 06:00 21 H 121/52 L 95 02/25/20 04:00 19 113/58 L 93 L 02/25/20 02:00 37.6 C 20 114/68 96 02/25/20 00:00 20 132/64 96 02/24/20 22:00 25 H 124/68 97 Date Exam was Performed: 02/25/20 Time Exam was Performed: 11:22 - Problem List Review Problem List Initiated/Reviewed/Updated: Yes - My Orders Last 24 Hours: My Active Orders 02/25/20 07:30 Pantoprazole [ProTONIX Granules] 40 mg PO BIDAC 02/25/20 08:00 Divalproex Sodium [Depakote Sprinkle] 250 mg PO BIDMEALS - Plan Plan:: ASSESSMENT AND PLAN ALCOHOL WITHDRAWAL DELIRIUM-evidence of hypoactive alcohol withdrawal with delirium managed per protocol. Very slowly coming around but still pretty lethargic. Strength is improving daily. -Alcohol withdrawal protocol -Trial of Depakote as a mood stabilizer -Supplement thiamine and folate -Start physical therapy once he is more alert and interactive -Discuss alcohol treatment options once he is more alert and interactive UPPER GI BLEED-no ongoing bleeding. Hemoglobin slowly improving. -Protonix 40 mg twice daily with meals ACUTE BLOOD LOSS ANEMIA-secondary to upper GI bleed. Hemoglobin improving. -Management as above ACUTE ALCOHOLIC HEPATITIS-bilirubin has improved further in the past 48 hours. -Repeat liver labs Thursday CHRONIC PANCREATITIS-no pain. 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 Residual right-sided deficits. -Physical therapy when he is more awake and alert MAINTENANCE ISSUES -DVT prophylaxis; mechanical -GI prophylaxis; Protonix as above -[place] catheter; not indicated -Nutrition; mechanical soft DISPOSITION-anticipate discharge to home versus rehab after the hospital stay. Arturo Abdul MD
[2020-02-26] MEDS: D5 1/2 NS w/ 20 mEq/L KCl 1,000 ML IV SCH ×2 (03:42→22:32)
[2020-02-26] MEDS: Thiamine 100 MG Tab PO SCH (09:18)
[2020-02-26] MEDS: Pantoprazole 40 MG Delayed-Release Granules 1 Packet PO SCH ×2 (09:18→17:43)
[2020-02-26] MEDS: Folic Acid 1 MG Tab PO SCH (09:18)
[2020-02-26] MEDS: Divalproex Sodium Delayed-Release 125 MG Cap.Sprink PO SCH (09:59)
--- NOTE | 2020-02-26 10:36 | PCM.PN ---
- General Info Date of Service: 02/26/20 Subjective Update: There were no acute events overnight. The patient is alert and more interactive today but still pretty lethargic. He is aware that he is in [place]. He does not complain of abdominal pain. Strength is a little better and his coordination is improved today. He did have some hallucinations yesterday but none today. His mom is wondering if maybe the Depakote is causing the hallucinations because they seem to happen shortly after he received his dose. Functional Status: Reports: Pain Controlled - Review of Systems General: Reports: Weakness. Denies: Fever - Patient Data Vitals - Most Recent: Last Vital Signs Temp 36.8 C 02/26/20 07:00 Pulse 131 H 02/25/20 21:00 Resp 16 02/26/20 09:00 BP 116/57 L 02/26/20 09:00 Pulse Ox 95 02/26/20 09:00 Weight - Most Recent: 73.527 kg Med Orders - Current: Current Medications Albuterol (Ventolin Hfa) 0 gm INH Q4H PRN PRN Reason: Shortness of Breath Dimethicone/Zinc Oxide (Rash Relief-Zinc Oxide [place]) 0 gm TOP ASDIRECTED PRN PRN Reason: Rash Last Admin: 02/18/20 12:05 Dose: 1 spray Folic Acid (Folic Acid) 1 mg PO DAILY [facility] Last Admin: 02/26/20 09:18 Dose: 1 mg Potassium Chloride/Dextrose/Sod Cl (D5 1/2 Ns W/ 20 Meq/L Kcl) 1,000 mls @ 50 mls/hr IV ASDIRECTED [facility] Last Admin: 02/26/20 03:42 Dose: 50 mls/hr Loperamide HCl (Imodium) 2 mg PO Q4H PRN PRN Reason: Diarrhea Last Admin: 02/21/20 14:14 Dose: 2 mg Lorazepam (Ativan) 0 mg IV ASDIRECTED [facility]; Protocol Last Admin: 02/24/20 03:14 Dose: 2 mg Lorazepam (Ativan) 0 mg PO ASDIRECTED [facility]; Protocol Last Admin: 02/21/20 16:08 Dose: 1 mg Ondansetron HCl (Zofran) 4 mg IV Q4H PRN PRN Reason: Nausea/Vomiting Pantoprazole Sodium (Protonix Granules) 40 mg PO BIDAC [facility] Last Admin: 02/26/20 09:18 Dose: 40 mg Sodium Chloride (Saline Flush) 10 ml FLUSH ASDIRECTED PRN PRN Reason: Keep Vein Open Thiamine HCl (Vitamin B-1) 100 mg PO DAILY [facility] Last Admin: 02/26/20 09:18 Dose: 100 mg Discontinued Medications Divalproex Sodium (Divalproex Sodium) 250 mg PO BIDMEALS [facility] Last Admin: 02/24/20 17:12 Dose: 250 mg Divalproex Sodium (Depakote Sprinkle) 250 mg PO BIDMEALS [facility] Last Admin: 02/26/20 09:59 Dose: Not Given Fentanyl (Sublimaze) Confirm Administered Dose 100 mcg .ROUTE .STK-MED ONE Stop: 02/17/20 07:24 Gabapentin (Neurontin) 400 mg PO Q8H [facility] Stop: 02/20/20 06:01 Last Admin: 02/18/20 05:19 Dose: 400 mg Gabapentin (Neurontin) 200 mg PO Q8H [facility] Stop: 02/22/20 06:01 Last Admin: 02/19/20 06:11 Dose: 200 mg Sodium Chloride (Normal Saline) 1,000 mls @ 500 mls/hr IV ASDIRECTED [facility] Last Admin: 02/16/20 10:34 Dose: 500 mls/hr Octreotide Acetate 500 mcg/ (Sodium Chloride) 500 mls @ 50 mls/hr IV Q10H [facility] Last Admin: 02/18/20 02:33 Dose: 50 mcg/hr, 50 mls/hr Pantoprazole Sodium 80 mg/ (Sodium Chloride) 100 mls @ 10 mls/hr IV .Q10H [facility] Last Admin: 02/18/20 02:31 Dose: 10 mls/hr Phytonadione 5 mg/ Sodium (Chloride) 50.5 mls @ 100 mls/hr IV NOW ONE Stop: 02/16/20 11:30 Last Admin: 02/16/20 11:34 Dose: 100 mls/hr Multivitamins/Minerals 10 ml/Thiamine HCl 100 mg/ Folic Acid 1 mg/ Magnesium Sulfate 2 gm/ Sodium Chloride 1,015.2 mls @ 100 mls/hr IV ONETIME ONE Stop: 02/16/20 23:09 Last Admin: 02/16/20 13:21 Dose: 100 mls/hr Sodium Chloride (Normal Saline) 1,000 mls @ 125 mls/hr IV ASDIRECTED [facility] Last Admin: 02/18/20 05:33 Dose: 125 mls/hr Sodium Chloride (Normal Saline) 1,000 mls @ 125 mls/hr IV ASDIRECTED [facility] Last Admin: 02/20/20 07:50 Dose: 125 mls/hr Potassium Chloride 20 meq/Lidocaine HCl 2 ml/ Sodium Chloride 112 mls @ 56 mls/ hr IV Q2H [facility] Stop: 02/19/20 12:29 Last Admin: 02/19/20 11:02 Dose: 56 mls/hr Potassium Chloride 20 meq/Lidocaine HCl 2 ml/ Sodium Chloride 112 mls @ 56 mls/ hr IV Q2H [facility] Stop: 02/19/20 20:29 Last Admin: 02/19/20 17:46 Dose: 56 mls/hr Potassium Chloride/Dextrose/Sod Cl (D5 1/2 Ns W/ 20 Meq/L Kcl) 1,000 mls @ 75 mls/hr IV ASDIRECTED [facility] Last Admin: 02/22/20 04:15 Dose: 75 mls/hr Magnesium Sulfate 2 gm/ Premix 50 mls @ 25 mls/hr IV Q6H [facility] Stop: 02/23/20 22:59 Last Admin: 02/23/20 20:39 Dose: 25 mls/hr Midazolam HCl (Versed 1 Mg/Ml) Confirm Administered Dose 2 mg .ROUTE .STK-MED ONE Stop: 02/17/20 07:24 Octreotide Acetate (Sandostatin) 50 mcg IVPUSH ONETIME ONE Stop: 02/16/20 10:40 Last Admin: 02/16/20 10:51 Dose: 50 mcg Pantoprazole Sodium (Protonix Iv) 80 mg IVPUSH .BOLUS [facility] Last Admin: 02/16/20 10:35 Dose: 80 mg Pantoprazole Sodium (Protonix Iv) 40 mg IVPUSH Q12H [facility] Last Admin: 02/22/20 08:03 Dose: Not Given Pantoprazole Sodium (Protonix) 40 mg PO BIDAC [facility] Last Admin: 02/24/20 17:12 Dose: 40 mg Potassium Chloride (Klor-Con M20) 40 meq PO ONETIME ONE Stop: 02/18/20 08:16 Last Admin: 02/18/20 10:03 Dose: 40 meq Potassium Chloride (Klor-Con M20) 40 meq PO ONETIME ONE Stop: 02/19/20 05:43 Last Admin: 02/19/20 06:13 Dose: 40 meq Potassium Chloride (Klor-Con M20) 40 meq PO ONETIME ONE Stop: 02/19/20 12:01 Potassium Chloride (Klor-Con M20) 40 meq PO ONETIME ONE Stop: 02/23/20 09:01 Last Admin: 02/23/20 09:38 Dose: 40 meq Propofol (Diprivan 20 Ml) Confirm Administered Dose 200 mg .ROUTE .STK-MED ONE Stop: 02/17/20 07:24 - Exam Quality Assessment: No: Supplemental Oxygen General: Alert, Oriented, Cooperative, No Acute Distress Lungs: Normal Respiratory Effort Cardiovascular: Regular Rate, Regular Rhythm GI/Abdominal Exam: Soft, No Distention Extremities: No Pedal Edema Skin: Warm, Dry Psy/Mental Status: Alert, Normal Affect. No: Agitated Sepsis Event Note - Evaluation Sepsis Screening Result: No Definite Risk - Focused Exam Vital Signs: Vital Signs Temp Resp BP Pulse Ox 02/26/20 09:00 16 116/57 L 95 02/26/20 07:00 36.8 C 14 125/41 L 94 L 02/26/20 06:00 17 131/37 L 94 L 02/26/20 04:00 18 113/53 L 95 02/26/20 02:00 20 115/52 L 97 02/26/20 00:00 16 138/61 93 L Date Exam was Performed: 02/26/20 Time Exam was Performed: 11:29 - Problem List Review Problem List Initiated/Reviewed/Updated: Yes - My Orders Last 24 Hours: My Active Orders 02/27/20 05:00 COMPREHENSIVE METABOLIC PN,CMP [CHEM] Timed HGB [HEMOGLOBIN] [HEME] Timed - Plan Plan:: ASSESSMENT AND PLAN ALCOHOL WITHDRAWAL DELIRIUM-still quite hypoactive but slowly coming around. He did have some hallucinations yesterday but they could be from the Depakote rather than alcohol withdrawal. Seems to be finally nearing the end of his withdrawal syndrome. -Alcohol withdrawal protocol with oral lorazepam but try to minimize -Melatonin at bedtime -Discontinue Depakote -Supplement thiamine and folate -Start physical therapy tomorrow -Discuss alcohol treatment options once he is more alert and interactive UPPER GI BLEED-no ongoing bleeding. Hemoglobin slowly improving. -Protonix 40 mg twice daily with meals ACUTE BLOOD LOSS ANEMIA-secondary to upper GI bleed. Hemoglobin improving. -Hemoglobin in the morning ACUTE ALCOHOLIC HEPATITIS-bilirubin has improved further in the past 48 hours. -Repeat liver labs in the morning CHRONIC PANCREATITIS-no pain. 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 Residual right-sided deficits. -Physical therapy when he is more awake and alert MAINTENANCE ISSUES -DVT prophylaxis; mechanical -GI prophylaxis; Protonix as above -[place] catheter; not indicated -Nutrition; mechanical soft DISPOSITION-anticipate discharge to home versus rehab after the hospital stay. Arturo Abdul MD
[2020-02-27] MEDS: Pantoprazole 40 MG Delayed-Release Granules 1 Packet PO SCH ×2 (08:09→17:02)
[2020-02-27] MEDS: Thiamine 100 MG Tab PO SCH (08:09)
[2020-02-27] MEDS: Folic Acid 1 MG Tab PO SCH (08:09)
[2020-02-27] MEDS: Dimethicone 20%/Zinc Oxide 25% 56 GM Spray Bottle TOP PRN (08:10)
--- NOTE | 2020-02-27 10:26 | PCM.PN ---
- General Info Date of Service: 02/27/20 Subjective Update: Mr. Skelton continued to show slow improvement and recovering from his severe alcohol withdrawal. Still somewhat slow cognitively but more interactive than he had been previously. Physically remains extremely weak. Functional Status: Reports: Tolerating Diet, Urinating. Denies: Ambulating - Review of Systems General: Reports: Weakness. Denies: Fever, Chills Pulmonary: Reports: No Symptoms Cardiovascular: Reports: No Symptoms Gastrointestinal: Reports: No Symptoms - Patient Data Vitals - Most Recent: Last Vital Signs Temp 95.3 F L 02/27/20 07:00 Pulse 112 H 02/27/20 09:00 Resp 15 02/27/20 09:00 BP 120/63 02/27/20 09:00 Pulse Ox 97 02/27/20 09:00 Weight - Most Recent: 160 lb I&O - Last 24 Hours: Intake & Output 02/26/20 02/27/20 02/27/20 22:59 06:59 14:59 Intake Total 1694 Balance 1694 Lab Results Last 24 Hours: Laboratory Results - last 24 hr 02/27/20 02/27/20 Range/Units 04:20 04:20 Hgb 9.0 L (12.0-15.0) g/dL Sodium 140 (140-148) mmol/L Potassium 4.1 (3.6-5.2) mmol/L Chloride 107 (100-108) mmol/L Carbon Dioxide 23 (21-32) mmol/L Anion Gap 9.6 (5.0-14.0) mmol/L BUN 4 L D (7-18) mg/dL Creatinine 0.7 L (0.8-1.3) mg/dL Est Cr Clr Drug Dosing 139.11 mL/min Estimated GFR (MDRD) > 60 (>60) Glucose 92 (74-106) mg/dL Calcium 7.8 L (8.5-10.1) mg/dL Total Bilirubin 2.2 H (0.2-1.0) mg/dL AST 43 H (15-37) U/L ALT 23 (12-78) U/L Alkaline Phosphatase 138 H (46-116) U/L Total Protein 5.4 L (6.4-8.2) g/dL Albumin 2.0 L (3.4-5.0) g/dL Globulin 3.4 (2.3-3.5) g/dL Albumin/Globulin Ratio 0.6 L (1.2-2.2) Med Orders - Current: Current Medications Albuterol (Ventolin Hfa) 0 gm INH Q4H PRN PRN Reason: Shortness of Breath Dimethicone/Zinc Oxide (Rash Relief-Zinc Oxide [place]) 0 gm TOP ASDIRECTED PRN PRN Reason: Rash Last Admin: 02/27/20 08:10 Dose: 4 spray Folic Acid (Folic Acid) 1 mg PO DAILY [facility] Last Admin: 02/27/20 08:09 Dose: 1 mg Loperamide HCl (Imodium) 2 mg PO Q4H PRN PRN Reason: Diarrhea Last Admin: 02/21/20 14:14 Dose: 2 mg Lorazepam (Ativan) 0 mg PO ASDIRECTED [facility]; Protocol Last Admin: 02/21/20 16:08 Dose: 1 mg Ondansetron HCl (Zofran) 4 mg IV Q4H PRN PRN Reason: Nausea/Vomiting Pantoprazole Sodium (Protonix Granules) 40 mg PO BIDAC [facility] Last Admin: 02/27/20 08:09 Dose: 40 mg Sodium Chloride (Saline Flush) 10 ml FLUSH ASDIRECTED PRN PRN Reason: Keep Vein Open Thiamine HCl (Vitamin B-1) 100 mg PO DAILY [facility] Last Admin: 02/27/20 08:09 Dose: 100 mg Discontinued Medications Divalproex Sodium (Divalproex Sodium) 250 mg PO BIDMEALS [facility] Last Admin: 02/24/20 17:12 Dose: 250 mg Divalproex Sodium (Depakote Sprinkle) 250 mg PO BIDMEALS [facility] Last Admin: 02/26/20 09:59 Dose: Not Given Fentanyl (Sublimaze) Confirm Administered Dose 100 mcg .ROUTE .STK-MED ONE Stop: 02/17/20 07:24 Gabapentin (Neurontin) 400 mg PO Q8H [facility] Stop: 02/20/20 06:01 Last Admin: 02/18/20 05:19 Dose: 400 mg Gabapentin (Neurontin) 200 mg PO Q8H [facility] Stop: 02/22/20 06:01 Last Admin: 02/19/20 06:11 Dose: 200 mg Sodium Chloride (Normal Saline) 1,000 mls @ 500 mls/hr IV ASDIRECTED [facility] Last Admin: 02/16/20 10:34 Dose: 500 mls/hr Octreotide Acetate 500 mcg/ (Sodium Chloride) 500 mls @ 50 mls/hr IV Q10H [facility] Last Admin: 02/18/20 02:33 Dose: 50 mcg/hr, 50 mls/hr Pantoprazole Sodium 80 mg/ (Sodium Chloride) 100 mls @ 10 mls/hr IV .Q10H [facility] Last Admin: 02/18/20 02:31 Dose: 10 mls/hr Phytonadione 5 mg/ Sodium (Chloride) 50.5 mls @ 100 mls/hr IV NOW ONE Stop: 02/16/20 11:30 Last Admin: 02/16/20 11:34 Dose: 100 mls/hr Multivitamins/Minerals 10 ml/Thiamine HCl 100 mg/ Folic Acid 1 mg/ Magnesium Sulfate 2 gm/ Sodium Chloride 1,015.2 mls @ 100 mls/hr IV ONETIME ONE Stop: 02/16/20 23:09 Last Admin: 02/16/20 13:21 Dose: 100 mls/hr Sodium Chloride (Normal Saline) 1,000 mls @ 125 mls/hr IV ASDIRECTED [facility] Last Admin: 02/18/20 05:33 Dose: 125 mls/hr Sodium Chloride (Normal Saline) 1,000 mls @ 125 mls/hr IV ASDIRECTED [facility] Last Admin: 02/20/20 07:50 Dose: 125 mls/hr Potassium Chloride 20 meq/Lidocaine HCl 2 ml/ Sodium Chloride 112 mls @ 56 mls/ hr IV Q2H [facility] Stop: 02/19/20 12:29 Last Admin: 02/19/20 11:02 Dose: 56 mls/hr Potassium Chloride 20 meq/Lidocaine HCl 2 ml/ Sodium Chloride 112 mls @ 56 mls/ hr IV Q2H [facility] Stop: 02/19/20 20:29 Last Admin: 02/19/20 17:46 Dose: 56 mls/hr Potassium Chloride/Dextrose/Sod Cl (D5 1/2 Ns W/ 20 Meq/L Kcl) 1,000 mls @ 75 mls/hr IV ASDIRECTED [facility] Last Admin: 02/22/20 04:15 Dose: 75 mls/hr Potassium Chloride/Dextrose/Sod Cl (D5 1/2 Ns W/ 20 Meq/L Kcl) 1,000 mls @ 50 mls/hr IV ASDIRECTED [facility] Last Admin: 02/26/20 22:32 Dose: 50 mls/hr Magnesium Sulfate 2 gm/ Premix 50 mls @ 25 mls/hr IV Q6H [facility] Stop: 02/23/20 22:59 Last Admin: 02/23/20 20:39 Dose: 25 mls/hr Lorazepam (Ativan) 0 mg IV ASDIRECTED [facility]; Protocol Last Admin: 02/24/20 03:14 Dose: 2 mg Midazolam HCl (Versed 1 Mg/Ml) Confirm Administered Dose 2 mg .ROUTE .STK-MED ONE Stop: 02/17/20 07:24 Octreotide Acetate (Sandostatin) 50 mcg IVPUSH ONETIME ONE Stop: 02/16/20 10:40 Last Admin: 02/16/20 10:51 Dose: 50 mcg Pantoprazole Sodium (Protonix Iv) 80 mg IVPUSH .BOLUS [facility] Last Admin: 02/16/20 10:35 Dose: 80 mg Pantoprazole Sodium (Protonix Iv) 40 mg IVPUSH Q12H [facility] Last Admin: 02/22/20 08:03 Dose: Not Given Pantoprazole Sodium (Protonix) 40 mg PO BIDAC [facility] Last Admin: 02/24/20 17:12 Dose: 40 mg Potassium Chloride (Klor-Con M20) 40 meq PO ONETIME ONE Stop: 02/18/20 08:16 Last Admin: 02/18/20 10:03 Dose: 40 meq Potassium Chloride (Klor-Con M20) 40 meq PO ONETIME ONE Stop: 02/19/20 05:43 Last Admin: 02/19/20 06:13 Dose: 40 meq Potassium Chloride (Klor-Con M20) 40 meq PO ONETIME ONE Stop: 02/19/20 12:01 Potassium Chloride (Klor-Con M20) 40 meq PO ONETIME ONE Stop: 02/23/20 09:01 Last Admin: 02/23/20 09:38 Dose: 40 meq Propofol (Diprivan 20 Ml) Confirm Administered Dose 200 mg .ROUTE .STK-MED ONE Stop: 02/17/20 07:24 - Exam Quality Assessment: DVT Prophylaxis General: Alert, Cooperative, Mild Distress. No: Oriented Lungs: Clear to Auscultation, Normal Respiratory Effort Cardiovascular: Regular Rhythm, No Murmurs, Tachycardia GI/Abdominal Exam: Soft, Non-Tender, No Organomegaly, No Distention Extremities: Non-Tender, No Pedal Edema Sepsis Event Note - Evaluation Sepsis Screening Result: No Definite Risk - Focused Exam Vital Signs: Vital Signs Temp Pulse Resp BP Pulse Ox 02/27/20 09:00 112 H 15 120/63 97 02/27/20 07:00 95.3 F L 111 H 22 H 125/62 95 02/27/20 05:00 17 121/50 L 94 L 02/27/20 03:00 19 125/63 93 L 02/27/20 01:00 17 132/63 94 L 02/26/20 23:00 16 113/53 L 97 Date Exam was Performed: 02/27/20 Time Exam was Performed: 10:22 - Problem List Review Problem List Initiated/Reviewed/Updated: Yes - My Orders Last 24 Hours: My Active Orders 02/27/20 10:20 Discontinue Telemetry Monitoring [Cardiac Monitoring Discontinue] [RC] Click to Edit Convert IV to Saline Lock [OM.PC] Routine 02/27/20 10:21 Patient Status [ADT] Routine - Plan Plan:: ASSESSMENT AND PLAN ALCOHOL WITHDRAWAL DELIRIUM-slow cognitive and physical improvement -Alcohol withdrawal protocol with oral lorazepam but try to minimize -Melatonin at bedtime -Supplement thiamine and folate -physical therapy -Discuss alcohol treatment options once he is more alert and interactive UPPER GI BLEED-no ongoing bleeding. Hemoglobin slowly improving. -Protonix 40 mg twice daily with meals ACUTE BLOOD LOSS ANEMIA-secondary to upper GI bleed. Hemoglobin improving. -Hemoglobin in the morning ACUTE ALCOHOLIC HEPATITIS-slow improvement in liver studies CHRONIC PANCREATITIS-resolved HISTORY OF AORTIC DISSECTION WITH CVA-status post surgical repair. Residual right-sided deficits. -Physical therapy MAINTENANCE ISSUES -DVT prophylaxis; mechanical -GI prophylaxis; Protonix as above -[place] catheter; not indicated -Nutrition; mechanical soft DISPOSITION-anticipate discharge to rehab after the hospital stay.
[2020-02-27] MEDS: Ibuprofen 400 MG Tab PO PRN (23:04)
[2020-02-28] MEDS: Thiamine 100 MG Tab PO SCH (08:22)
[2020-02-28] MEDS: Ibuprofen 400 MG Tab PO PRN (08:22)
[2020-02-28] MEDS: Folic Acid 1 MG Tab PO SCH (08:23)
[2020-02-28] MEDS: Pantoprazole 40 MG Delayed-Release Granules 1 Packet PO SCH ×2 (08:23→16:02)
[2020-02-28] MEDS ORDERED: Pneumococcal Polyvalent-23 Vaccine 0.5 ML SDV IM ONE (10:00)
--- NOTE | 2020-02-28 16:32 | PCM.PN ---
- General Info Date of Service: 02/28/20 Subjective Update: Mr. Skelton has shown further improvement over the last 24 hours. Overall strength is improved and he has been walking short distances with assistance. He is more alert and interactive. Functional Status: Reports: Tolerating Diet, Ambulating, Urinating - Review of Systems General: Reports: Weakness. Denies: Fever, Chills Pulmonary: Reports: No Symptoms Cardiovascular: Reports: No Symptoms Gastrointestinal: Reports: No Symptoms - Patient Data Vitals - Most Recent: Last Vital Signs Temp 96.8 F L 02/28/20 16:16 Pulse 94 02/28/20 16:16 Resp 18 02/28/20 16:16 BP 111/45 L 02/28/20 16:16 Pulse Ox 95 02/28/20 16:16 Weight - Most Recent: 359 lb 2.128 oz I&O - Last 24 Hours: Intake & Output 02/28/20 02/28/20 02/28/20 06:59 14:59 22:59 Intake Total 200 Balance 200 Med Orders - Current: Current Medications Albuterol (Ventolin Hfa) 0 gm INH Q4H PRN PRN Reason: Shortness of Breath Dimethicone/Zinc Oxide (Rash Relief-Zinc Oxide [place]) 0 gm TOP ASDIRECTED PRN PRN Reason: Rash Last Admin: 02/27/20 08:10 Dose: 4 spray Folic Acid (Folic Acid) 1 mg PO DAILY [facility] Last Admin: 02/28/20 08:23 Dose: 1 mg Ibuprofen (Motrin) 400 mg PO Q6H PRN PRN Reason: Fever Last Admin: 02/28/20 08:22 Dose: 400 mg Loperamide HCl (Imodium) 2 mg PO Q4H PRN PRN Reason: Diarrhea Last Admin: 02/21/20 14:14 Dose: 2 mg Lorazepam (Ativan) 0 mg PO ASDIRECTED [facility]; Protocol Last Admin: 02/21/20 16:08 Dose: 1 mg Ondansetron HCl (Zofran) 4 mg IV Q4H PRN PRN Reason: Nausea/Vomiting Pantoprazole Sodium (Protonix Granules) 40 mg PO BIDAC [facility] Last Admin: 02/28/20 16:02 Dose: 40 mg Sodium Chloride (Saline Flush) 10 ml FLUSH ASDIRECTED PRN PRN Reason: Keep Vein Open Thiamine HCl (Vitamin B-1) 100 mg PO DAILY [facility] Last Admin: 02/28/20 08:22 Dose: 100 mg Discontinued Medications Divalproex Sodium (Divalproex Sodium) 250 mg PO BIDMEALS [facility] Last Admin: 02/24/20 17:12 Dose: 250 mg Divalproex Sodium (Depakote Sprinkle) 250 mg PO BIDMEALS [facility] Last Admin: 02/26/20 09:59 Dose: Not Given Fentanyl (Sublimaze) Confirm Administered Dose 100 mcg .ROUTE .STK-MED ONE Stop: 02/17/20 07:24 Gabapentin (Neurontin) 400 mg PO Q8H [facility] Stop: 02/20/20 06:01 Last Admin: 02/18/20 05:19 Dose: 400 mg Gabapentin (Neurontin) 200 mg PO Q8H [facility] Stop: 02/22/20 06:01 Last Admin: 02/19/20 06:11 Dose: 200 mg Sodium Chloride (Normal Saline) 1,000 mls @ 500 mls/hr IV ASDIRECTED [facility] Last Admin: 02/16/20 10:34 Dose: 500 mls/hr Octreotide Acetate 500 mcg/ (Sodium Chloride) 500 mls @ 50 mls/hr IV Q10H [facility] Last Admin: 02/18/20 02:33 Dose: 50 mcg/hr, 50 mls/hr Pantoprazole Sodium 80 mg/ (Sodium Chloride) 100 mls @ 10 mls/hr IV .Q10H [facility] Last Admin: 02/18/20 02:31 Dose: 10 mls/hr Phytonadione 5 mg/ Sodium (Chloride) 50.5 mls @ 100 mls/hr IV NOW ONE Stop: 02/16/20 11:30 Last Admin: 02/16/20 11:34 Dose: 100 mls/hr Multivitamins/Minerals 10 ml/Thiamine HCl 100 mg/ Folic Acid 1 mg/ Magnesium Sulfate 2 gm/ Sodium Chloride 1,015.2 mls @ 100 mls/hr IV ONETIME ONE Stop: 02/16/20 23:09 Last Admin: 02/16/20 13:21 Dose: 100 mls/hr Sodium Chloride (Normal Saline) 1,000 mls @ 125 mls/hr IV ASDIRECTED [facility] Last Admin: 02/18/20 05:33 Dose: 125 mls/hr Sodium Chloride (Normal Saline) 1,000 mls @ 125 mls/hr IV ASDIRECTED [facility] Last Admin: 02/20/20 07:50 Dose: 125 mls/hr Potassium Chloride 20 meq/Lidocaine HCl 2 ml/ Sodium Chloride 112 mls @ 56 mls/ hr IV Q2H [facility] Stop: 02/19/20 12:29 Last Admin: 02/19/20 11:02 Dose: 56 mls/hr Potassium Chloride 20 meq/Lidocaine HCl 2 ml/ Sodium Chloride 112 mls @ 56 mls/ hr IV Q2H [facility] Stop: 02/19/20 20:29 Last Admin: 02/19/20 17:46 Dose: 56 mls/hr Potassium Chloride/Dextrose/Sod Cl (D5 1/2 Ns W/ 20 Meq/L Kcl) 1,000 mls @ 75 mls/hr IV ASDIRECTED [facility] Last Admin: 02/22/20 04:15 Dose: 75 mls/hr Potassium Chloride/Dextrose/Sod Cl (D5 1/2 Ns W/ 20 Meq/L Kcl) 1,000 mls @ 50 mls/hr IV ASDIRECTED [facility] Last Admin: 02/26/20 22:32 Dose: 50 mls/hr Magnesium Sulfate 2 gm/ Premix 50 mls @ 25 mls/hr IV Q6H [facility] Stop: 02/23/20 22:59 Last Admin: 02/23/20 20:39 Dose: 25 mls/hr Lorazepam (Ativan) 0 mg IV ASDIRECTED [facility]; Protocol Last Admin: 02/24/20 03:14 Dose: 2 mg Midazolam HCl (Versed 1 Mg/Ml) Confirm Administered Dose 2 mg .ROUTE .STK-MED ONE Stop: 02/17/20 07:24 Octreotide Acetate (Sandostatin) 50 mcg IVPUSH ONETIME ONE Stop: 02/16/20 10:40 Last Admin: 02/16/20 10:51 Dose: 50 mcg Pantoprazole Sodium (Protonix Iv) 80 mg IVPUSH .BOLUS [facility] Last Admin: 02/16/20 10:35 Dose: 80 mg Pantoprazole Sodium (Protonix Iv) 40 mg IVPUSH Q12H [facility] Last Admin: 02/22/20 08:03 Dose: Not Given Pantoprazole Sodium (Protonix) 40 mg PO BIDAC [facility] Last Admin: 02/24/20 17:12 Dose: 40 mg Pneumococcal Polyvalent Vaccine (Pneumovax 23) 0.5 ml IM .ONCE ONE Stop: 02/28/20 10:01 Last Admin: 02/28/20 10:28 Dose: Not Given Potassium Chloride (Klor-Con M20) 40 meq PO ONETIME ONE Stop: 02/18/20 08:16 Last Admin: 02/18/20 10:03 Dose: 40 meq Potassium Chloride (Klor-Con M20) 40 meq PO ONETIME ONE Stop: 02/19/20 05:43 Last Admin: 02/19/20 06:13 Dose: 40 meq Potassium Chloride (Klor-Con M20) 40 meq PO ONETIME ONE Stop: 02/19/20 12:01 Potassium Chloride (Klor-Con M20) 40 meq PO ONETIME ONE Stop: 02/23/20 09:01 Last Admin: 02/23/20 09:38 Dose: 40 meq Propofol (Diprivan 20 Ml) Confirm Administered Dose 200 mg .ROUTE .STK-MED ONE Stop: 02/17/20 07:24 - Exam Quality Assessment: DVT Prophylaxis General: Alert, Oriented, Cooperative, Mild Distress Lungs: Clear to Auscultation, Normal Respiratory Effort Cardiovascular: Regular Rate, Regular Rhythm, No Murmurs GI/Abdominal Exam: Soft, Non-Tender, No Organomegaly, No Distention Extremities: Non-Tender, No Pedal Edema Sepsis Event Note - Evaluation Sepsis Screening Result: No Definite Risk - Focused Exam Vital Signs: Vital Signs Temp Pulse Resp BP BP Pulse Ox 02/28/20 16:16 96.8 F L 94 18 111/45 L 95 02/28/20 12:00 99.1 F 91 12 104/48 L 95 02/28/20 08:23 96.5 F L 87 16 124/49 L 95 Date Exam was Performed: 02/28/20 Time Exam was Performed: 16:30 - Problem List Review Problem List Initiated/Reviewed/Updated: Yes - Plan Plan:: ASSESSMENT AND PLAN ALCOHOL WITHDRAWAL DELIRIUM-ongoing good improvement in strength and cognitive function -Melatonin at bedtime -Supplement thiamine and folate -physical therapy -Discuss alcohol treatment options UPPER GI BLEED-no ongoing bleeding. Hemoglobin slowly improving. -Protonix 40 mg twice daily with meals ACUTE BLOOD LOSS ANEMIA-secondary to upper GI bleed. Hemoglobin stable ACUTE ALCOHOLIC HEPATITIS-slow improvement in liver studies CHRONIC PANCREATITIS-resolved HISTORY OF AORTIC DISSECTION WITH CVA-status post surgical repair. Residual right-sided deficits. -Physical therapy MAINTENANCE ISSUES -DVT prophylaxis; mechanical -GI prophylaxis; Protonix as above -[place] catheter; not indicated -Nutrition; mechanical soft DISPOSITION-anticipate discharge to rehab after the hospital stay.
[2020-02-29] MEDS: Pantoprazole 40 MG Delayed-Release Granules 1 Packet PO SCH (07:25)
[2020-02-29] MEDS: Folic Acid 1 MG Tab PO SCH (08:34)
[2020-02-29] MEDS: Thiamine 100 MG Tab PO SCH (08:34)
--- NOTE | 2020-02-29 14:19 | PCM.PN ---
- General Info Date of Service: 02/29/20 Subjective Update: Mr. Skelton has shown further improvement, slowly regaining strength, speech is more clear. Currently looking at inpatient rehab to regain strength. Functional Status: Reports: Tolerating Diet, Ambulating, Urinating - Review of Systems General: Reports: Weakness. Denies: Fever, Chills Pulmonary: Reports: No Symptoms Cardiovascular: Reports: No Symptoms Gastrointestinal: Reports: No Symptoms - Patient Data Vitals - Most Recent: Last Vital Signs Temp 100.0 F 02/29/20 11:16 Pulse 98 02/29/20 11:16 Resp 16 02/29/20 11:16 BP 107/48 L 02/29/20 11:16 Pulse Ox 95 02/29/20 11:16 Weight - Most Recent: 158 lb 11.2 oz I&O - Last 24 Hours: Intake & Output 02/28/20 02/29/20 02/29/20 22:59 06:59 14:59 Intake Total 1138 120 500 Balance 1138 120 500 Med Orders - Current: Current Medications Albuterol (Ventolin Hfa) 0 gm INH Q4H PRN PRN Reason: Shortness of Breath Dimethicone/Zinc Oxide (Rash Relief-Zinc Oxide [place]) 0 gm TOP ASDIRECTED PRN PRN Reason: Rash Last Admin: 02/27/20 08:10 Dose: 4 spray Folic Acid (Folic Acid) 1 mg PO DAILY [facility] Last Admin: 02/29/20 08:34 Dose: 1 mg Ibuprofen (Motrin) 400 mg PO Q6H PRN PRN Reason: Fever Last Admin: 02/28/20 08:22 Dose: 400 mg Loperamide HCl (Imodium) 2 mg PO Q4H PRN PRN Reason: Diarrhea Last Admin: 02/21/20 14:14 Dose: 2 mg Lorazepam (Ativan) 0 mg PO ASDIRECTED [facility]; Protocol Last Admin: 02/21/20 16:08 Dose: 1 mg Ondansetron HCl (Zofran) 4 mg IV Q4H PRN PRN Reason: Nausea/Vomiting Pantoprazole Sodium (Protonix Granules) 40 mg PO BIDAC [facility] Last Admin: 02/29/20 07:25 Dose: 40 mg Sodium Chloride (Saline Flush) 10 ml FLUSH ASDIRECTED PRN PRN Reason: Keep Vein Open Thiamine HCl (Vitamin B-1) 100 mg PO DAILY [facility] Last Admin: 02/29/20 08:34 Dose: 100 mg Discontinued Medications Divalproex Sodium (Divalproex Sodium) 250 mg PO BIDMEALS [facility] Last Admin: 02/24/20 17:12 Dose: 250 mg Divalproex Sodium (Depakote Sprinkle) 250 mg PO BIDMEALS [facility] Last Admin: 02/26/20 09:59 Dose: Not Given Fentanyl (Sublimaze) Confirm Administered Dose 100 mcg .ROUTE .STK-MED ONE Stop: 02/17/20 07:24 Gabapentin (Neurontin) 400 mg PO Q8H [facility] Stop: 02/20/20 06:01 Last Admin: 02/18/20 05:19 Dose: 400 mg Gabapentin (Neurontin) 200 mg PO Q8H [facility] Stop: 02/22/20 06:01 Last Admin: 02/19/20 06:11 Dose: 200 mg Sodium Chloride (Normal Saline) 1,000 mls @ 500 mls/hr IV ASDIRECTED [facility] Last Admin: 02/16/20 10:34 Dose: 500 mls/hr Octreotide Acetate 500 mcg/ (Sodium Chloride) 500 mls @ 50 mls/hr IV Q10H [facility] Last Admin: 02/18/20 02:33 Dose: 50 mcg/hr, 50 mls/hr Pantoprazole Sodium 80 mg/ (Sodium Chloride) 100 mls @ 10 mls/hr IV .Q10H [facility] Last Admin: 02/18/20 02:31 Dose: 10 mls/hr Phytonadione 5 mg/ Sodium (Chloride) 50.5 mls @ 100 mls/hr IV NOW ONE Stop: 02/16/20 11:30 Last Admin: 02/16/20 11:34 Dose: 100 mls/hr Multivitamins/Minerals 10 ml/Thiamine HCl 100 mg/ Folic Acid 1 mg/ Magnesium Sulfate 2 gm/ Sodium Chloride 1,015.2 mls @ 100 mls/hr IV ONETIME ONE Stop: 02/16/20 23:09 Last Admin: 02/16/20 13:21 Dose: 100 mls/hr Sodium Chloride (Normal Saline) 1,000 mls @ 125 mls/hr IV ASDIRECTED [facility] Last Admin: 02/18/20 05:33 Dose: 125 mls/hr Sodium Chloride (Normal Saline) 1,000 mls @ 125 mls/hr IV ASDIRECTED [facility] Last Admin: 02/20/20 07:50 Dose: 125 mls/hr Potassium Chloride 20 meq/Lidocaine HCl 2 ml/ Sodium Chloride 112 mls @ 56 mls/ hr IV Q2H [facility] Stop: 02/19/20 12:29 Last Admin: 02/19/20 11:02 Dose: 56 mls/hr Potassium Chloride 20 meq/Lidocaine HCl 2 ml/ Sodium Chloride 112 mls @ 56 mls/ hr IV Q2H [facility] Stop: 02/19/20 20:29 Last Admin: 02/19/20 17:46 Dose: 56 mls/hr Potassium Chloride/Dextrose/Sod Cl (D5 1/2 Ns W/ 20 Meq/L Kcl) 1,000 mls @ 75 mls/hr IV ASDIRECTED [facility] Last Admin: 02/22/20 04:15 Dose: 75 mls/hr Potassium Chloride/Dextrose/Sod Cl (D5 1/2 Ns W/ 20 Meq/L Kcl) 1,000 mls @ 50 mls/hr IV ASDIRECTED [facility] Last Admin: 02/26/20 22:32 Dose: 50 mls/hr Magnesium Sulfate 2 gm/ Premix 50 mls @ 25 mls/hr IV Q6H [facility] Stop: 02/23/20 22:59 Last Admin: 02/23/20 20:39 Dose: 25 mls/hr Lorazepam (Ativan) 0 mg IV ASDIRECTED [facility]; Protocol Last Admin: 02/24/20 03:14 Dose: 2 mg Midazolam HCl (Versed 1 Mg/Ml) Confirm Administered Dose 2 mg .ROUTE .STK-MED ONE Stop: 02/17/20 07:24 Octreotide Acetate (Sandostatin) 50 mcg IVPUSH ONETIME ONE Stop: 02/16/20 10:40 Last Admin: 02/16/20 10:51 Dose: 50 mcg Pantoprazole Sodium (Protonix Iv) 80 mg IVPUSH .BOLUS [facility] Last Admin: 02/16/20 10:35 Dose: 80 mg Pantoprazole Sodium (Protonix Iv) 40 mg IVPUSH Q12H [facility] Last Admin: 02/22/20 08:03 Dose: Not Given Pantoprazole Sodium (Protonix) 40 mg PO BIDAC [facility] Last Admin: 02/24/20 17:12 Dose: 40 mg Pneumococcal Polyvalent Vaccine (Pneumovax 23) 0.5 ml IM .ONCE ONE Stop: 02/28/20 10:01 Last Admin: 02/28/20 10:28 Dose: Not Given Potassium Chloride (Klor-Con M20) 40 meq PO ONETIME ONE Stop: 02/18/20 08:16 Last Admin: 02/18/20 10:03 Dose: 40 meq Potassium Chloride (Klor-Con M20) 40 meq PO ONETIME ONE Stop: 02/19/20 05:43 Last Admin: 02/19/20 06:13 Dose: 40 meq Potassium Chloride (Klor-Con M20) 40 meq PO ONETIME ONE Stop: 02/19/20 12:01 Potassium Chloride (Klor-Con M20) 40 meq PO ONETIME ONE Stop: 02/23/20 09:01 Last Admin: 02/23/20 09:38 Dose: 40 meq Propofol (Diprivan 20 Ml) Confirm Administered Dose 200 mg .ROUTE .STK-MED ONE Stop: 02/17/20 07:24 - Exam Quality Assessment: DVT Prophylaxis General: Alert, Oriented, Cooperative, Mild Distress Lungs: Clear to Auscultation, Normal Respiratory Effort Cardiovascular: Regular Rate, Regular Rhythm, No Murmurs GI/Abdominal Exam: Soft, Non-Tender, No Organomegaly, No Distention Extremities: Non-Tender, Pedal Edema Sepsis Event Note - Evaluation Sepsis Screening Result: No Definite Risk - Focused Exam Vital Signs: Vital Signs Temp Pulse Resp BP BP Pulse Ox 02/29/20 11:16 100.0 F 98 16 107/48 L 95 02/29/20 07:00 98.4 F 95 18 114/57 L 94 L 02/29/20 03:10 97.3 F 93 16 126/79 96 Date Exam was Performed: 02/29/20 Time Exam was Performed: 14:17 - Problem List Review Problem List Initiated/Reviewed/Updated: Yes - My Orders Last 24 Hours: My Active Orders 02/29/20 12:11 Discontinue Saline Lock [Peripheral IV Discontinue] [OM.PC] Routine 02/29/20 Lunch Regular Diet [DIET] - Plan Plan:: ASSESSMENT AND PLAN ALCOHOL WITHDRAWAL DELIRIUM-ongoing good improvement in strength and cognitive function -Melatonin at bedtime -Supplement thiamine and folate -physical therapy -Discuss alcohol treatment options UPPER GI BLEED-no ongoing bleeding. Hemoglobin slowly improving. -Protonix 40 mg daily with meals ACUTE BLOOD LOSS ANEMIA-secondary to upper GI bleed. Hemoglobin stable ACUTE ALCOHOLIC HEPATITIS-slow improvement in liver studies CHRONIC PANCREATITIS-resolved HISTORY OF AORTIC DISSECTION WITH CVA-status post surgical repair. Residual right-sided deficits. -Physical therapy MAINTENANCE ISSUES -DVT prophylaxis; mechanical -GI prophylaxis; Protonix as above -[place] catheter; not indicated -Nutrition; mechanical soft DISPOSITION-anticipate discharge to rehab after the hospital stay.
[2020-02-29] MEDS ORDERED: Melatonin 3 MG Tab PO PRN (16:41)
[2020-03-01] MEDS ORDERED: Pantoprazole 40 MG Delayed-Release Granules 1 Packet PO SCH (07:30)
[2020-03-01] MEDS: Folic Acid 1 MG Tab PO SCH (08:39)
[2020-03-01] MEDS: Thiamine 100 MG Tab PO SCH (08:39)
[2020-03-01 10:21] VITALS: BP 118/53; PULSE 97
--- NOTE | 2020-03-01 12:10 | PCM.DCSUM1 ---
Discharge Summary - Hospital Course Brief History: Mr. Skelton is a 24-year-old gentleman who was admitted through the emergency department with acute upper GI bleed and hemoptysis as well as alcohol intoxication with a longstanding history of alcohol abuse. - Discharge Data Discharge Date: 03/01/20 Discharge Disposition: Home, W Home Health Agency 06 Condition: Good - Referral to Home Health Date of Face to Face Encounter: 03/01/20 Reason for Homebound Status: Status post CVA with residual right-sided weakness Primary Care Physician: PCP None Skilled Need: Generalized weakness after hospitalization, residual right-sided weakness from previous CVA. - Discharge Diagnosis/Problem(s) (1) Acute blood loss anemia SNOMED Code(s): 024449155 ICD Code: D62 - ACUTE POSTHEMORRHAGIC ANEMIA Status: Acute Current Visit : Yes (2) Gastritis SNOMED Code(s): 8810737 ICD Code: K29.70 - GASTRITIS, UNSPECIFIED, WITHOUT BLEEDING Status: Acute Current Visit: Yes (3) Esophageal varices SNOMED Code(s): 93993341 ICD Code: I85.00 - ESOPHAGEAL VARICES WITHOUT BLEEDING Status: Acute Current Visit: Yes (4) Hepatic cirrhosis SNOMED Code(s): 94519580 ICD Code: K74.60 - UNSPECIFIED CIRRHOSIS OF LIVER Status: Acute Current Visit: Yes (5) Portal hypertension SNOMED Code(s): 74186447 ICD Code: K76.6 - PORTAL HYPERTENSION Status: Acute Current Visit: Yes (6) Acute GI bleeding SNOMED Code(s): 36343886 ICD Code: K92.2 - GASTROINTESTINAL HEMORRHAGE, UNSPECIFIED Status: Acute Current Visit: Yes (7) Alcohol intoxication SNOMED Code(s): 26075748 ICD Code: F10.929 - ALCOHOL USE, UNSPECIFIED WITH INTOXICATION, UNSPECIFIED Status: Acute Current Visit: Yes Qualifiers: Complication of substance-induced condition: with unspecified complication Qualified Code(s): F10.929 - Alcohol use, unspecified with intoxication, unspecified (8) Delirium tremens SNOMED Code(s): 7103545 ICD Code: F10.231 - ALCOHOL DEPENDENCE WITH WITHDRAWAL DELIRIUM Status: Chronic Current Visit: No (9) Alcoholic hepatitis without ascites SNOMED Code(s): 532124505 ICD Code: K70.10 - ALCOHOLIC HEPATITIS WITHOUT ASCITES Status: Chronic Current Visit: No - Patient Summary/Data Consults: Consultations 02/16/20 12:32 Consult to Physician [CONS] Routine Consulting Provider: Vasu Cintron Courtesy Call Completed to Consulting Physician: Yes Reason for Consult: Upper GI bleed, EGD 02/27/20 07:00 PT Evaluation and Treatment [CONS] Routine Please Evaluate and Treat. PT Reason for Consult: Strengthening This query below is only for informational purposes and is not editable. Admission Diagnosis/Problem: Bleeding 02/27/20 12:07 OT Evaluation and Treatment [CONS] Routine Please Evaluate and Treat. OT Reason for Consult: Other (Type Response) Pending Discharge: ACUTE REHAB Discharge Disposition: Alf Facility This query below is only for informational purposes and is not editable. Admission Diagnosis/Problem: Bleeding Hospital Course: Mr. Skelton is a 24-year-old gentleman who was admitted through the emergency department with weakness, hematemesis, and melena, secondary to an upper GI bleed. Despite his relatively young age he has had a history of multiple medical issues. 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 He did undergo surgical repair of the aortic dissection. In addition he has had longstanding alcohol abuse with history of pancreatitis, probable cirrhosis , and acute alcoholic hepatitis. For the past week he is noted intermittent episodes of hematemesis associated with epigastric abdominal pain nausea and vomiting. Hematemesis became worse yesterday and was associated with melenic appearing stools. Because of profound weakness he presented to the emergency department for further evaluation and management. Bilirubin is noted to be elevated 4.6 with an elevation in prothrombin time. Calculated Maddery discriminant function is 17. Hemoglobin was 8.9 and his alcohol level was significantly elevated on admission. He was given IV fluids for hydration, serial hemoglobin levels were monitored. On the morning after admission EGD was performed which showed evidence of diffuse gastritis, felt to represent source of his recent bleeding. He was also found to have esophageal varices, these did not appear to have been recently bleeding. He was placed on alcohol withdrawal protocol and started on gabapentin regimen for alcohol withdrawal. Initially was started on IV Protonix continuous infusion as well as octreotide. There was no further evidence of active bleeding through his hospital stay. Liver enzymes were monitored daily bilirubin level did peak above 6 but it improved significantly by the time of discharge. He did develop severe alcohol withdrawal, causing a prolonged hospitalization. He was managed with the alcohol withdrawal protocol. He gradually became stronger, more alert and interactive. By the time of discharge he was able to ambulate with use of a walker and standby assist. He was seen by physical therapy during hospitalization. We discussed possible transfer to inpatient physical therapy rehab. Patient decided he would prefer to go home with home care as well as home physical therapy and Occupational Therapy. Once he regains further strength, plan will be to proceed with alcohol treatment. Follow-up appointment will be scheduled with his primary care provider within 1 week. Activity will be as tolerated and he will resume his usual diet. He will be discharged on Protonix 40 mg daily for the next few months. He is instructed to avoid all further alcohol use. - Patient Instructions Diet: Usual Diet as Tolerated Activity: As Tolerated Other/Special Instructions: Please schedule follow-up appointment with primary care provider within 1 week. Please arrange for home care after discharge with home physical therapy and Occupational Therapy. - Discharge Plan *PRESCRIPTION DRUG MONITORING PROGRAM REVIEWED*: Not Applicable *COPY OF PRESCRIPTION DRUG MONITORING REPORT IN PATIENT CARMELLA: Not Applicable Prescriptions/Med Rec: Pantoprazole Sodium [Protonix] 40 mg PO DAILY #30 tablet. Home Medications: Home Meds Albuterol [Ventolin HFA] 2 puff INH Q4H PRN 08/09/18 [History] Fluticasone Propionate [Flonase] 16 gm NS Q4HR PRN 08/09/18 [History] Pantoprazole Sodium [Protonix] 40 mg PO DAILY #30 tablet. 03/01/20 [Rx] Referrals: Yen Son PA-C [Ordering Only Provider] - - Discharge Summary/Plan Comment DC Time >30 min.: No - Patient Data Vitals - Most Recent: Last Vital Signs Temp 97.4 F 03/01/20 10:19 Pulse 97 03/01/20 10:19 Resp 16 03/01/20 10:19 BP 118/53 L 03/01/20 10:19 Pulse Ox 98 03/01/20 10:19 Weight - Most Recent: 156 lb 14.4 oz I&O - Last 24 hours: Intake & Output 02/29/20 03/01/20 03/01/20 22:59 06:59 14:59 Intake Total 200 240 490 Balance 200 240 490 Med Orders - Current: Current Medications Albuterol (Ventolin Hfa) 0 gm INH Q4H PRN PRN Reason: Shortness of Breath Dimethicone/Zinc Oxide (Rash Relief-Zinc Oxide [place]) 0 gm TOP ASDIRECTED PRN PRN Reason: Rash Last Admin: 02/27/20 08:10 Dose: 4 spray Folic Acid (Folic Acid) 1 mg PO DAILY [facility] Last Admin: 03/01/20 08:39 Dose: 1 mg Ibuprofen (Motrin) 400 mg PO Q6H PRN PRN Reason: Fever Last Admin: 02/28/20 08:22 Dose: 400 mg Loperamide HCl (Imodium) 2 mg PO Q4H PRN PRN Reason: Diarrhea Last Admin: 02/21/20 14:14 Dose: 2 mg Lorazepam (Ativan) 0 mg PO ASDIRECTED ZAKIA; Protocol Last Admin: 02/21/20 16:08 Dose: 1 mg Melatonin (Melatonin) 6 mg PO BEDTIME PRN PRN Reason: Insomnia Last Admin: 02/29/20 20:52 Dose: 6 mg Ondansetron HCl (Zofran) 4 mg IV Q4H PRN PRN Reason: Nausea/Vomiting Pantoprazole Sodium (Protonix Granules) 40 mg PO ACBREAKFAST [facility] Last Admin: 03/01/20 08:39 Dose: 40 mg Sodium Chloride (Saline Flush) 10 ml FLUSH ASDIRECTED PRN PRN Reason: Keep Vein Open Thiamine HCl (Vitamin B-1) 100 mg PO DAILY [facility] Last Admin: 03/01/20 08:39 Dose: 100 mg Discontinued Medications Divalproex Sodium (Divalproex Sodium) 250 mg PO BIDMEALS [facility] Last Admin: 02/24/20 17:12 Dose: 250 mg Divalproex Sodium (Depakote Sprinkle) 250 mg PO BIDMEALS [facility] Last Admin: 02/26/20 09:59 Dose: Not Given Fentanyl (Sublimaze) Confirm Administered Dose 100 mcg .ROUTE .STK-MED ONE Stop: 02/17/20 07:24 Gabapentin (Neurontin) 400 mg PO Q8H [facility] Stop: 02/20/20 06:01 Last Admin: 02/18/20 05:19 Dose: 400 mg Gabapentin (Neurontin) 200 mg PO Q8H [facility] Stop: 02/22/20 06:01 Last Admin: 02/19/20 06:11 Dose: 200 mg Sodium Chloride (Normal Saline) 1,000 mls @ 500 mls/hr IV ASDIRECTED [facility] Last Admin: 02/16/20 10:34 Dose: 500 mls/hr Octreotide Acetate 500 mcg/ (Sodium Chloride) 500 mls @ 50 mls/hr IV Q10H [facility] Last Admin: 02/18/20 02:33 Dose: 50 mcg/hr, 50 mls/hr Pantoprazole Sodium 80 mg/ (Sodium Chloride) 100 mls @ 10 mls/hr IV .Q10H ZAKIA Last Admin: 02/18/20 02:31 Dose: 10 mls/hr Phytonadione 5 mg/ Sodium (Chloride) 50.5 mls @ 100 mls/hr IV NOW ONE Stop: 02/16/20 11:30 Last Admin: 02/16/20 11:34 Dose: 100 mls/hr Multivitamins/Minerals 10 ml/Thiamine HCl 100 mg/ Folic Acid 1 mg/ Magnesium Sulfate 2 gm/ Sodium Chloride 1,015.2 mls @ 100 mls/hr IV ONETIME ONE Stop: 02/16/20 23:09 Last Admin: 02/16/20 13:21 Dose: 100 mls/hr Sodium Chloride (Normal Saline) 1,000 mls @ 125 mls/hr IV ASDIRECTED [facility] Last Admin: 02/18/20 05:33 Dose: 125 mls/hr Sodium Chloride (Normal Saline) 1,000 mls @ 125 mls/hr IV ASDIRECTED [facility] Last Admin: 02/20/20 07:50 Dose: 125 mls/hr Potassium Chloride 20 meq/Lidocaine HCl 2 ml/ Sodium Chloride 112 mls @ 56 mls/ hr IV Q2H ZAKIA Stop: 02/19/20 12:29 Last Admin: 02/19/20 11:02 Dose: 56 mls/hr Potassium Chloride 20 meq/Lidocaine HCl 2 ml/ Sodium Chloride 112 mls @ 56 mls/ hr IV Q2H [facility] Stop: 02/19/20 20:29 Last Admin: 02/19/20 17:46 Dose: 56 mls/hr Potassium Chloride/Dextrose/Sod Cl (D5 1/2 Ns W/ 20 Meq/L Kcl) 1,000 mls @ 75 mls/hr IV ASDIRECTED [facility] Last Admin: 02/22/20 04:15 Dose: 75 mls/hr Potassium Chloride/Dextrose/Sod Cl (D5 1/2 Ns W/ 20 Meq/L Kcl) 1,000 mls @ 50 mls/hr IV ASDIRECTED [facility] Last Admin: 02/26/20 22:32 Dose: 50 mls/hr Magnesium Sulfate 2 gm/ Premix 50 mls @ 25 mls/hr IV Q6H ZAKIA Stop: 02/23/20 22:59 Last Admin: 02/23/20 20:39 Dose: 25 mls/hr Lorazepam (Ativan) 0 mg IV ASDIRECTED [facility]; Protocol Last Admin: 02/24/20 03:14 Dose: 2 mg Midazolam HCl (Versed 1 Mg/Ml) Confirm Administered Dose 2 mg .ROUTE .STK-MED ONE Stop: 02/17/20 07:24 Octreotide Acetate (Sandostatin) 50 mcg IVPUSH ONETIME ONE Stop: 02/16/20 10:40 Last Admin: 02/16/20 10:51 Dose: 50 mcg Pantoprazole Sodium (Protonix Iv) 80 mg IVPUSH .BOLUS [facility] Last Admin: 02/16/20 10:35 Dose: 80 mg Pantoprazole Sodium (Protonix Iv) 40 mg IVPUSH Q12H [facility] Last Admin: 02/22/20 08:03 Dose: Not Given Pantoprazole Sodium (Protonix) 40 mg PO BIDAC [facility] Last Admin: 02/24/20 17:12 Dose: 40 mg Pantoprazole Sodium (Protonix Granules) 40 mg PO BIDAC [facility] Last Admin: 02/29/20 07:25 Dose: 40 mg Pneumococcal Polyvalent Vaccine (Pneumovax 23) 0.5 ml IM .ONCE ONE Stop: 02/28/20 10:01 Last Admin: 02/28/20 10:28 Dose: Not Given Potassium Chloride (Klor-Con M20) 40 meq PO ONETIME ONE Stop: 02/18/20 08:16 Last Admin: 02/18/20 10:03 Dose: 40 meq Potassium Chloride (Klor-Con M20) 40 meq PO ONETIME ONE Stop: 02/19/20 05:43 Last Admin: 02/19/20 06:13 Dose: 40 meq Potassium Chloride (Klor-Con M20) 40 meq PO ONETIME ONE Stop: 02/19/20 12:01 Potassium Chloride (Klor-Con M20) 40 meq PO ONETIME ONE Stop: 02/23/20 09:01 Last Admin: 02/23/20 09:38 Dose: 40 meq Propofol (Diprivan 20 Ml) Confirm Administered Dose 200 mg .ROUTE .STK-MED ONE Stop: 02/17/20 07:24 - Exam General: Reports: Alert, Oriented, Cooperative, No Acute Distress Lungs: Reports: Clear to Auscultation, Normal Respiratory Effort Cardiovascular: Reports: Regular Rate, Regular Rhythm, No Murmurs GI/Abdominal Exam: Soft, Non-Tender, No Organomegaly, No Distention Back Exam: Reports: Normal Inspection, Full Range of Motion Skin: Reports: Warm, Dry, Intact *Q Meaningful Use (DIS) - VTE *Q VTE Pharmacological Contraindications *Q: Active Hemorrhage
--- NOTE | 2020-03-12 13:14 | OR ---
DATE OF PROCEDURE: 02/17/2020 SURGEON: Vasu Cintron MD PREOPERATIVE DIAGNOSIS: Upper gastrointestinal bleeding. POSTOPERATIVE DIAGNOSES: 1. Large esophageal varices with overlying mucosal inflammation but without ulceration. 2. Diffuse erosive gastritis (no active bleeding, but this is likely the patient's recent upper gastrointestinal bleeding source). OPERATIVE PROCEDURE: Esophagogastroduodenoscopy with antral biopsies for CLOtest. ANESTHESIA: IV sedation. INDICATION FOR PROCEDURE: A 24-year-old presenting with upper gastrointestinal bleeding along with other concurrent medical problems. Plan is to proceed with upper GI endoscopy with biopsies as indicated. Potential risks including bleeding and perforation were reviewed with the patient's guardian and they wished to proceed. DETAILS OF PROCEDURE: The patient was taken to the operating room, placed in a left lateral decubitus position. IV sedation was administered, after which the upper GI endoscope was passed orally through the length of the esophagus and stomach with retroflexion view of the fundus, thereafter through the pyloric channel into the junction of the third and fourth portions of the duodenum. Findings included some large esophageal varices. These were associated with some inflammation of the distal esophageal mucosa, but there is no ulceration, and while these varices were quite prominent, they did not appear to be associated with any of the recent bleeding. Within the stomach, however, there was diffuse erosive gastritis. Again, there were some patchy erosions present which were at this point covered with fibrinous exudate. These obviously was the likely recent bleeding source. No active bleeding was seen. The pyloric channel and visualized portions of the duodenum were otherwise unremarkable. At this point, biopsies were obtained from the antrum and sent for CLOtest for H pylori. Minimal bleeding from the biopsy sites was seen and the procedure was then concluded. The patient was taken to the recovery room in satisfactory condition. Vasu Cintron MD /[id number]
== END 2020-03-01 14:02 | disposition home health service (06) | DRG 896 ==
LOC: JP.ED 09:30 → JP.ICU 10:40 → UNDOADMIN 10:40 → JP.ICU 12:32 → JP.MS 02-27 10:21 → JP.ICU 02-27 10:21 → UNDODISIN 03-01 14:02
PROVIDERS: ADMIT Hospitalist; ATTEND Hospitalist
PROC: 0DB68ZX Excision of Stomach, Via Natural or Artificial Opening Endoscopic, Diagnostic (ICD-10-PCS; principal; 2020-02-17)
DX: K92.2 Gastrointestinal hemorrhage, unspecified (principal); F10.231 Alcohol dependence with withdrawal delirium; F10.929 Alcohol use, unspecified with intoxication, unspecified; Y90.7 Blood alcohol level of 200-239 mg/100 ml; H54.7 Unspecified visual loss; Z86.718 Personal history of other venous thrombosis and embolism; Z86.73 Personal history of transient ischemic attack (TIA), and cerebral infarction without residual deficits; K29.71 Gastritis, unspecified, with bleeding; Z88.1 Allergy status to other antibiotic agents; D62 Acute posthemorrhagic anemia; K76.6 Portal hypertension; R47.01 Aphasia; K86.1 Other chronic pancreatitis; I69.351 Hemiplegia and hemiparesis following cerebral infarction affecting right dominant side; I85.00 Esophageal varices without bleeding; F10.229 Alcohol dependence with intoxication, unspecified; K74.60 Unspecified cirrhosis of liver; K70.10 Alcoholic hepatitis without ascites; E03.9 Hypothyroidism, unspecified; F17.200 Nicotine dependence, unspecified, uncomplicated; Y90.8 Blood alcohol level of 240 mg/100 ml or more; Z88.0 Allergy status to penicillin; Z79.899 Other long term (current) drug therapy; Z98.890 Other specified postprocedural states
CPT/HCPCS: 36415; 80053; 80307; 85025; 85610; 86850; 86900; 86901; 86920 ×2; 86922 ×2; 99284; 99285; C9113; J7030; 36430; 70450; 70450-26; 80048; 83690; 83735; 85018; 85027; 87081; 87493; 97110-GP; 97161-GP; 97165-GO; A9270-GY; J2001; J2060; J2250; J2354; J2704; J3010; J3411; J3430; J3475; J3480; J3490; J7040; J7050; P9016

== ENCOUNTER 2022-05-09 22:03 | Emergency (ER) | payer MEDICAID, MEDICARE ==
[2022-05-09] MEDS ORDERED: Sodium Chloride 0.9% 10 ML Syringe FLUSH PRN (23:21)
[2022-05-09] MEDS ORDERED: Sodium Chloride 0.9% 1,000 ML IV STA (23:21)
[2022-05-09] MEDS ORDERED: fentaNYL 100 MCG/2 ML SDV IVPUSH ONE (23:31)
[2022-05-09] MEDS ORDERED: Ondansetron 4 MG/2 ML SDV IVPUSH ONE (23:31)
[2022-05-09] MEDS ORDERED: Sodium Chloride 0.9% 50 ML IV SCH (23:45)
[2022-05-09 23:47] LABS: ESTIMATED GFR 105 mL/min (>60)
[2022-05-10] MEDS: Iopamidol 612 MG/ML 100 ML Bottle IV ONE (00:08)
[2022-05-10] MEDS ORDERED: cefTRIAXone 1 GM in Sodium Chloride 0.9% 50 ML IV ONE (01:20)
[2022-05-10] MEDS ORDERED: metroNIDAZOLE/Normal Saline 500 MG in Premix Bag 1 BAG IV ONE (01:20)
[2022-05-10] MEDS ORDERED: fentaNYL 100 MCG/2 ML SDV IVPUSH ONE (01:22)
[2022-05-10 02:11] VITALS: BP 123/62; PULSE 99
== END 2022-05-10 02:52 ==
LOC: JP.ED 22:03
DX: K35.30 Acute appendicitis with localized peritonitis, without perforation or gangrene (principal); Z88.0 Allergy status to penicillin
CPT/HCPCS: 36415; 74177; 80053; 80307; 81001; 83605; 83690; 85025; 96361; 96365; 96375; 96376; 99285; J0696; J2405; J3010; J3490; J7030; Q9967; U0002